=== PATIENT | male | born 1980 | race Asian ===

== ENCOUNTER 2018-12-01 10:54 | Emergency (ER) | payer MEDICAID, OTHER ==
[~2018-12-01] VITALS: Ht 162.6 cm; Wt 63.6 kg
[~2018-12-01 10:54] MED LIST: DIVA500T52 PO; OLAN10TA3 PO
[2018-12-01] MEDS ORDERED: DIPH50 PO (13:39)
[2018-12-01] MEDS ORDERED: RISP2 PO (13:39)
[2018-12-01] MEDS ORDERED: CLON.5 PO (13:39)
[2018-12-01] MEDS ORDERED: DOCU250C91 PO (13:39)
[2018-12-01] MEDS ORDERED: METF-960 PO (13:39)
[2018-12-01] MEDS ORDERED: MAG355OR36 PO (13:39)
[2018-12-01] MEDS ORDERED: PROV5 PO (13:39)
[2018-12-01] MEDS ORDERED: SITA100 PO (13:39)
[2018-12-01] MEDS ORDERED: ACET160S2 PO (13:39)
[2018-12-01] MEDS ORDERED: OLAN7.5T2 PO (13:39)
[2018-12-01] MEDS ORDERED: PIOG15TA6 PO (13:39)
[2018-12-01] MEDS ORDERED: BENZ0.5T44 PO (13:39)
[2018-12-01] MEDS ORDERED: MOM30 PO (13:39)
[2018-12-01 15:10] VITALS: BP 125/76
[2018-12-01 15:20] LABS: BASOPHILS % (AUTO) 0.6 % (0.0-2.0); EOSINOPHILS % (AUTO) 0.5 % (1.0-6.0); HEMATOCRIT 38.6 % (41-53); HEMOGLOBIN 12.8 g/dL (13.5-17.5); LYMPHOCYTES # (AUTO) 1.3 K/uL (1.0-4.8); LYMPHOCYTES % (AUTO) 19.9 % (22.0-44.0); MEAN CORPUSCULAR HGB CONC 33.2 G/dL (31.0-37.0); MEAN CORPUSCULAR VOLUME 91 fL (80-100); MONOCYTES # (AUTO) 0.7 K/uL (0.1-1.0); MONOCYTES % (AUTO) 10.7 % (2.0-9.0); NEUTROPHILS # (AUTO) 4.3 K/uL (1.8-7.7); NEUTROPHILS % (AUTO) 68.3 % (40.0-70.0); PLATELET COUNT (AUTO) 236 K/uL (150-450); RED BLOOD CELL COUNT(AUTO) 4.26 MIL/uL (4.50-5.90)
[2018-12-01 15:28] LABS: ANION GAP 9 mmol/L (8-16); CALCIUM, TOTAL 9.4 mg/dL (8.8-10.5); CARBON DIOXIDE 27 mmol/L (22-29); CHLORIDE 106 mmol/L (98-107); CREATININE 0.68 mg/dL (0.60-1.30); GLOMERULAR FILTR. RATE CALC > 60 mL/min (>60); GLUCOSE,RANDOM 102 mg/dL (70-110); POTASSIUM 3.4 mmol/L (3.5-5.1); SODIUM SERUM 142 mmol/L (136-145); UREA NITROGEN, BLOOD 12 mg/dL (7-18)
[2018-12-01 15:34] LABS: ALANINE AMINOTRANSFERASE 23 U/L (12-78); ALBUMIN 3.7 g/dL (3.4-5.0); ALKALINE PHOSPHATASE 63 U/L (46-116); ASPARTATE AMINOTRANSFERASE 20 U/L (15-37); BILIRUBIN,TOTAL 0.3 mg/dL (0.1-1.0); TOTAL PROTEIN, SERUM 7.2 g/dL (6.4-8.2)
== END 2018-12-01 18:50 | disposition home or self-care (01) ==
LOC: EMS 10:54
DX: F20.9 Schizophrenia, unspecified (principal); F31.9 Bipolar disorder, unspecified; Z91.14 Patient's other noncompliance with medication regimen; Z79.899 Other long term (current) drug therapy
CPT/HCPCS: 36415; 80053; 82962; 85025; 99284; G0480

== ENCOUNTER 2018-12-01 20:17 | Emergency (ER) | payer OTHER ==
[~2018-12-01] VITALS: Ht 167.6 cm; Wt 68.2 kg
[~2018-12-01 20:17] MED LIST changes: +ACET160S2 PO; +BENZ0.5T44 PO; +CLON.5 PO; +DIPH50 PO; +DOCU250C91 PO; +MAG355OR36 PO; +METF-960 PO; +MOM30 PO; +OLAN7.5T2 PO; +PIOG15TA6 PO; +PROV5 PO; +RISP2 PO; +SITA100 PO
[2018-12-01] MEDS ORDERED: LORazepam 2 MG/ML VIAL IM ONE ×2 (21:15→22:45)
[2018-12-01] MEDS ORDERED: HALOPERIDOL LACTATE 5 MG/ML VIAL IM ONE ×2 (21:15→22:45)
[2018-12-01] MEDS ORDERED: DiphenhydrAMINE HCL 50 MG/ML VIAL IM ONE (21:15)
[2018-12-02 00:43] VITALS: BP 100/70
== END 2018-12-02 00:51 | disposition home or self-care (01) ==
LOC: EMS 20:22
DX: F20.9 Schizophrenia, unspecified (principal); F31.9 Bipolar disorder, unspecified; Z79.899 Other long term (current) drug therapy
CPT/HCPCS: 96372; 99284; J1200; J1630; J2060

== ENCOUNTER 2018-12-04 17:13 | Inpatient (IN) | payer MEDICAID, OTHER ==
[~2018-12-04] VITALS: Ht 167.6 cm; Wt 65.4 kg
[~2018-12-04 17:13] MED LIST changes: -DIVA500T52 PO; -OLAN10TA3 PO
[2018-12-04 17:37] LABS: BASOPHILS % (AUTO) 0.5 % (0.0-2.0); EOSINOPHILS % (AUTO) 1.9 % (1.0-6.0); HEMATOCRIT 37.8 % (41-53); HEMOGLOBIN 12.6 g/dL (13.5-17.5); LYMPHOCYTES # (AUTO) 1.4 K/uL (1.0-4.8); LYMPHOCYTES % (AUTO) 24.6 % (22.0-44.0); MEAN CORPUSCULAR HEMOGLOBIN 29.6 pg (26.0-34.0); MEAN CORPUSCULAR HGB CONC 33.3 G/dL (31.0-37.0); MEAN CORPUSCULAR VOLUME 89 fL (80-100); MONOCYTES # (AUTO) 0.5 K/uL (0.1-1.0); MONOCYTES % (AUTO) 9.8 % (2.0-9.0); NEUTROPHILS # (AUTO) 3.5 K/uL (1.8-7.7); NEUTROPHILS % (AUTO) 63.2 % (40.0-70.0); PLATELET COUNT (AUTO) 236 K/uL (150-450); RED BLOOD CELL COUNT(AUTO) 4.25 MIL/uL (4.50-5.90); RED CELL DISTRIBUTION WIDTH 12.6 % (11.5-14.5)
[2018-12-04 17:45] LABS: ANION GAP 9 mmol/L (8-16); CARBON DIOXIDE 28 mmol/L (22-29); CHLORIDE 106 mmol/L (98-107); CREATININE 0.88 mg/dL (0.60-1.30); GLOMERULAR FILTR. RATE CALC > 60 mL/min (>60); GLUCOSE,RANDOM 111 mg/dL (70-110); POTASSIUM 3.7 mmol/L (3.5-5.1); SODIUM SERUM 143 mmol/L (136-145); UREA NITROGEN, BLOOD 9 mg/dL (7-18)
[2018-12-04 17:51] LABS: ALANINE AMINOTRANSFERASE 30 U/L (12-78); ALBUMIN 3.6 g/dL (3.4-5.0); ALKALINE PHOSPHATASE 69 U/L (46-116); ASPARTATE AMINOTRANSFERASE 54 U/L (15-37); BILIRUBIN,TOTAL 0.2 mg/dL (0.1-1.0); TOTAL PROTEIN, SERUM 7.2 g/dL (6.4-8.2)
[2018-12-04 18:42] LABS: APPEARANCE,URINE CLEAR (CLEAR); BILIRUBIN,URINE NEGATIVE (NEGATIVE); GLUCOSE, URINE (UA) 250 mg/dL (NEGATIVE); KETONES,URINE NEGATIVE (NEGATIVE); LEUKOCYTE ESTERASE ,URINE NEGATIVE (NEGATIVE); NITRATE,URINE NEGATIVE (NEGATIVE); OCCULT BLOOD,URINE NEGATIVE (NEGATIVE); PROTEIN,URINE NEGATIVE (NEGATIVE); UROBILINOGEN,URINE 0.2 mg/dL (<=1.0)
[2018-12-04 18:45] LABS: AMPHET/METH SCREEN,URINE NEGATIVE (NEGATIVE); BARBITURATE SCREEN, URINE NEGATIVE (NEGATIVE); BENZODIAZEPINES SCREEN,URINE NEGATIVE (NEGATIVE); CANNABINOID SCREEN,URINE NEGATIVE (NEGATIVE); COCAINE SCREEN,URINE NEGATIVE (NEGATIVE); METHADONE SCREEN, URINE NEGATIVE (NEGATIVE); OPIATE SCREEN,URINE NEGATIVE (NEGATIVE)
[2018-12-04 18:46] LABS: PHENCYCLIDINE SCREEN,URINE NEGATIVE (NEGATIVE)
[2018-12-04 18:54] LABS: RBC,URINE None Seen /HPF (0-2); WBC,URINE 0-2 /HPF (0-5)
[2018-12-04 18:55] LABS: BACTERIA,URINE None Seen /HPF (None Seen); SQUAMOUS EPITHELIAL CELL,UR Rare /LPF (None Seen)
[2018-12-04] MEDS ORDERED: LORazepam 2 MG TABLET PO PRN (20:45)
[2018-12-04] MEDS ORDERED: ZOLPIDEM TARTRATE 10 MG TABLET PO PRN (20:45)
[2018-12-04] MEDS ORDERED: INSULIN LISPRO 100 UNITS/ML SQ PRN (21:15)
[2018-12-04] MEDS ORDERED: GLUCAGON,HUMAN RECOMBINANT 1 MG VIAL IM PRN (21:15)
[2018-12-04] MEDS ORDERED: IBUPROFEN 600 MG TABLET PO PRN (21:15)
[2018-12-04] MEDS ORDERED: ACETAMINOPHEN 325 MG TABLET PO PRN (21:15)
[2018-12-04] MEDS: HALOPERIDOL 5 MG TABLET PO PRN (21:18)
[2018-12-05 00:24] VITALS: BP 115/78
[2018-12-05 06:29] LABS: GLUCOMETER DEV NAME(LOC) BV3N.; GLUCOSE,POINT OF CARE 125 MG/DL (70-110)
[2018-12-05] MEDS: MetFORMIN HCL 500 MG TABLET PO SCH ×2 (06:35→16:53)
[2018-12-05 07:57] LABS: HEMOGLOBIN A1C 5.8 % (4.5-6.2)
[2018-12-05 08:14] LABS: CHOL/HDL RATIO 2.8 (4.2-7.3); FREE T4 (FREE THYROXINE) 0.96 ng/dL (0.76-1.46); THYROID STIMULATING HORMONE 2.15 uIU/mL (0.36-3.74)
[2018-12-05] MEDS: MedroxyPROGESTERone ACET 5 MG TABLET PO SCH (08:30)
[2018-12-05] MEDS: DOCUSATE SODIUM 250 MG CAPSULE PO SCH (08:30)
[2018-12-05 09:26] VITALS: BP 111/72
[2018-12-05 16:00] VITALS: BP 118/77
[2018-12-05] MEDS: BENZTROPINE MESYLATE 0.5 MG TABLET PO SCH (16:53)
[2018-12-05] MEDS: HALOPERIDOL 5 MG TABLET PO PRN (16:53)
[2018-12-05 17:25] LABS: GLUCOMETER DEV NAME(LOC) BV3N.; GLUCOSE,POINT OF CARE 132 MG/DL (70-110)
[2018-12-05] MEDS ORDERED: OLANZapine 10 MG TABLET PO SCH (21:00)
[2018-12-06 03:19] VITALS: BP 121/82
[2018-12-06 06:24] LABS: GLUCOMETER DEV NAME(LOC) BV3N.; GLUCOSE,POINT OF CARE 161 MG/DL (70-110)
[2018-12-06] MEDS: MetFORMIN HCL 500 MG TABLET PO SCH (06:25)
[2018-12-06] MEDS: BENZTROPINE MESYLATE 0.5 MG TABLET PO SCH (08:52)
[2018-12-06] MEDS: MedroxyPROGESTERone ACET 5 MG TABLET PO SCH (08:52)
[2018-12-06] MEDS: DOCUSATE SODIUM 250 MG CAPSULE PO SCH (08:52)
[2018-12-06 08:53] VITALS: BP 120/73
[2018-12-06] MEDS ORDERED: OLAN10TA3 PO (10:55)
== END 2018-12-06 11:00 | disposition short-term general hospital (02) | DRG 750 ==
LOC: EMS 17:13 → B3A 21:11
PROVIDERS: ADMIT Psychiatry & Neurology Psychiatry; ATTEND Psychiatry & Neurology Psychiatry
DX: F20.0 Paranoid schizophrenia (principal); R45.851 Suicidal ideations; E11.9 Type 2 diabetes mellitus without complications; D64.9 Anemia, unspecified; F31.9 Bipolar disorder, unspecified; K59.00 Constipation, unspecified; Z83.3 Family history of diabetes mellitus; Z79.899 Other long term (current) drug therapy
CPT/HCPCS: 83036; 84439; 84443; 87081; G0480

== ENCOUNTER 2023-03-15 10:40 | Inpatient (IN) | payer MEDICAID ==
[~2023-03-15] VITALS: Ht 175.3 cm; Wt 85.8 kg
[~2023-03-15 10:40] MED LIST changes: -ACET160S2 PO; -BENZ0.5T44 PO; +BENZ0.5T6 PO; -CLON.5 PO; -DIPH50 PO; +DOCU-412 PO; -DOCU250C91 PO; -MAG355OR36 PO; +METF-1211 PO; -METF-960 PO; -MOM30 PO; +OLAN10TA74 PO; -OLAN7.5T2 PO; -PIOG15TA6 PO; -RISP2 PO; -SITA100 PO
[2023-03-15] MEDS ORDERED: PARO-38 PO (11:51)
[2023-03-15] MEDS ORDERED: MEDR150V13 IM (11:51)
[2023-03-15] MEDS ORDERED: NA P133E4 PR (11:51)
[2023-03-15] MEDS ORDERED: PALI234D IM (11:51)
[2023-03-15] MEDS ORDERED: HALO5TAB23 PO (11:51)
[2023-03-15] MEDS ORDERED: DIPH50CA38 PO (11:51)
[2023-03-15] MEDS ORDERED: MAGN-169 PO (11:51)
[2023-03-15] MEDS ORDERED: DIPH-1237 PO (11:51)
[2023-03-15] MEDS ORDERED: LITH300C3 PO (11:51)
[2023-03-15] MEDS ORDERED: ACET-784 PO (11:51)
[2023-03-15] MEDS ORDERED: MULT-264 PO (11:51)
[2023-03-15] MEDS ORDERED: GLYC1TAB27 PO (11:51)
[2023-03-15] MEDS ORDERED: QUET100T34 PO (11:51)
[2023-03-15] MEDS ORDERED: BISA10SU11 PR (11:51)
[2023-03-15] MEDS ORDERED: CLOZ100T61 PO (11:51)
[2023-03-15] MEDS ORDERED: ATOR20TA PO (11:51)
[2023-03-15] MEDS ORDERED: PIOG30TA10 PO (11:51)
[2023-03-15] MEDS ORDERED: MIRT-149 PO (11:51)
[2023-03-15] MEDS ORDERED: ACET-2247 PO (11:51)
[2023-03-15] MEDS: LORazepam 1 MG TABLET PO ONE (11:59)
[2023-03-15 12:00] LABS: ANION GAP 13 mmol/L (8-16); CALCIUM, TOTAL 9.2 mg/dL (8.8-10.5); CARBON DIOXIDE 22 mmol/L (22-29); CHLORIDE 107 mmol/L (98-107); CREATININE 0.69 mg/dL (0.60-1.30); GLOMERULAR FILTR. RATE CALC > 60 mL/min (>60); GLUCOSE,RANDOM 143 mg/dL (70-110); POTASSIUM 3.7 mmol/L (3.5-5.1); SODIUM SERUM 142 mmol/L (136-145); UREA NITROGEN, BLOOD 16 mg/dL (7-18)
[2023-03-15 12:01] LABS: BASOPHILS % (AUTO) 0.4 % (0.0-2.0); EOSINOPHILS % (AUTO) 0.6 % (1.0-6.0); HEMATOCRIT 41.7 % (41-53); HEMOGLOBIN 13.8 g/dL (13.5-17.5); LYMPHOCYTES # (AUTO) 0.9 K/uL (1.0-4.8); LYMPHOCYTES % (AUTO) 15.5 % (22.0-44.0); MEAN CORPUSCULAR HEMOGLOBIN 32.2 pg (26.0-34.0); MEAN CORPUSCULAR HGB CONC 33.2 G/dL (31.0-37.0); MEAN CORPUSCULAR VOLUME 97 fL (80-100); MONOCYTES # (AUTO) 0.5 K/uL (0.1-1.0); MONOCYTES % (AUTO) 8.2 % (2.0-9.0); NEUTROPHILS # (AUTO) 4.3 K/uL (1.8-7.7); NEUTROPHILS % (AUTO) 75.3 % (40.0-70.0); PLATELET COUNT (AUTO) 171 K/uL (150-450); RED BLOOD CELL COUNT(AUTO) 4.29 MIL/uL (4.50-5.90); RED CELL DISTRIBUTION WIDTH 13.2 % (11.5-14.5); WHITE BLOOD COUNT (AUTO) 5.7 K/uL (4.5-11.0)
[2023-03-15 12:03] LABS: ALCOHOL, BLOOD (SERUM) < 3 mg/dL (0-10)
[2023-03-15 12:07] LABS: ALANINE AMINOTRANSFERASE 22 U/L (12-78); ALBUMIN 4.1 g/dL (3.4-5.0); ALKALINE PHOSPHATASE 74 U/L (46-116); ASPARTATE AMINOTRANSFERASE 13 U/L (15-37); BILIRUBIN,TOTAL 0.4 mg/dL (0.1-1.0); TOTAL PROTEIN, SERUM 7.3 g/dL (6.4-8.2)
[2023-03-15] MEDS: HALOPERIDOL LACTATE 5 MG/ML VIAL IM ONE (12:13)
[2023-03-15] MEDS: LORazepam 2 MG/ML VIAL IM ONE (12:14)
[2023-03-15] MEDS: DiphenhydrAMINE HCL 50 MG/ML VIAL IM ONE (12:14)
[2023-03-15] MEDS ORDERED: PROMETHAZINE HCL 25 MG TABLET PO PRN (13:15)
[2023-03-15] MEDS ORDERED: ACETAMINOPHEN 325 MG TABLET PO PRN (13:15)
[2023-03-15] MEDS ORDERED: GuaiFENesin/D-METHORPHAN [SUGAR-FREE] 200-20MG/10 ML SYRUP UDCUP PO PRN (13:15)
[2023-03-15] MEDS ORDERED: LOPERAMIDE HCL 2 MG CAPSULE PO PRN (13:15)
[2023-03-15] MEDS ORDERED: MIRT45TA83 PO (13:29)
[2023-03-15] MEDS ORDERED: DIPH-1243 PO (13:29)
[2023-03-15] MEDS ORDERED: GLIP10TA9 PO (13:29)
[2023-03-15] MEDS ORDERED: INSU3INS3 SQ (13:29)
[2023-03-15] MEDS ORDERED: OXYB5TAB20 PO (13:29)
[2023-03-15 16:33] LABS: APPEARANCE,URINE CLEAR (CLEAR); BILIRUBIN,URINE NEGATIVE (NEGATIVE); COLOR,URINE YELLOW (YELLOW); GLUCOSE, URINE (UA) TRACE mg/dL (NEGATIVE); KETONES,URINE 40-60 mg/dL (NEGATIVE); LEUKOCYTE ESTERASE ,URINE NEGATIVE (NEGATIVE); NITRATE,URINE NEGATIVE (NEGATIVE); OCCULT BLOOD,URINE NEGATIVE (NEGATIVE); PROTEIN,URINE TRACE mg/dL (NEGATIVE); SPECIFIC GRAVITIY, URINE 1.025 (1.003-1.030); UROBILINOGEN,URINE <=1.0 mg/dL (<=1.0)
[2023-03-15 16:39] LABS: ALCOHOL, URINE DRUG SCREEN NEGATIVE (NEGATIVE); AMPHET/METH SCREEN,URINE NEGATIVE (NEGATIVE); BARBITURATE SCREEN, URINE NEGATIVE (NEGATIVE); BENZODIAZEPINES SCREEN,URINE NEGATIVE (NEGATIVE); CANNABINOID SCREEN,URINE NEGATIVE (NEGATIVE); COCAINE SCREEN,URINE NEGATIVE (NEGATIVE); METHADONE SCREEN, URINE NEGATIVE (NEGATIVE); OPIATE SCREEN,URINE NEGATIVE (NEGATIVE); PHENCYCLIDINE SCREEN,URINE NEGATIVE (NEGATIVE)
[2023-03-15] MEDS: LORazepam 2 MG TABLET PO PRN (18:55)
[2023-03-15] MEDS: LITHIUM CARBONATE 300 MG CAPSULE PO SCH (18:55)
[2023-03-15 19:16] LABS: GLUCOMETER DEV NAME(LOC) ER.6; GLUCOSE,POINT OF CARE 127 MG/DL (70-110)
[2023-03-15] MEDS: OLANZapine 5 MG RAPDIS TABLET PO SCH (21:00)
[2023-03-15 21:28] LABS: COVID AG,FIA SOURCE NASAL SWAB
[2023-03-15 21:48] LABS: SARS-COV2 (COVID) ANTIGEN,FIA Negative (Negative)
[2023-03-15] MEDS: DIVALPROEX SODIUM 500 MG ER TABLET PO SCH (22:32)
[2023-03-15] MEDS: MELATONIN 5 MG TABLET PO SCH (22:33)
[2023-03-15] MEDS: THIAMINE 100 MG TABLET PO SCH (22:33)
[2023-03-16 00:07] LABS: GLUCOMETER DEV NAME(LOC) ER.6; GLUCOSE,POINT OF CARE 133 MG/DL (70-110)
[2023-03-16] MEDS: OLANZapine 5 MG RAPDIS TABLET PO PRN (06:09)
[2023-03-16 09:26] LABS: HEMOGLOBIN A1C 6.7 % (3.8-5.6)
[2023-03-16 09:39] LABS: CHOL/HDL RATIO 2.7 (4.2-7.3); FREE T4 (FREE THYROXINE) 1.4 ng/dL (0.76-1.46); THYROID STIMULATING HORMONE 0.58 uIU/mL (0.36-3.74)
[2023-03-16] MEDS: MULTIVITAMINS WITH MINERALS, THERAPEUTIC TABLET PO SCH (11:32)
[2023-03-16] MEDS: FOLIC ACID 1 MG TABLET PO SCH (11:33)
[2023-03-16] MEDS: ACETAMINOPHEN 500 MG TABLET PO ONE (11:33)
[2023-03-16 11:39] LABS: INFLUENZA TYPE A NEGATIVE FOR TYPE A (NEGATIVE); INFLUENZA TYPE B NEGATIVE FOR TYPE B (NEGATIVE)
[2023-03-16] MEDS: OMEGA-3/DHA/EPA/FISH OIL 1,000 MG CAPSULE PO SCH (12:26)
[2023-03-16] MEDS: ChlorproMAZINE HCL 50 MG/2 ML AMP IM ONE (14:43)
[2023-03-17] MEDS ORDERED: BISACODYL 10 MG RECTAL RECTAL SUPPOSITORY PR PRN (10:00)
[2023-03-17] MEDS ORDERED: GLUCAGON,HUMAN RECOMBINANT 1 MG VIAL IM PRN (10:00)
[2023-03-17] MEDS ORDERED: ACETAMINOPHEN 325 MG TABLET PO PRN (10:00)
[2023-03-17] MEDS: OXYBUTYNIN CHLORIDE 5 MG TABLET PO SCH (18:07)
[2023-03-17] MEDS: MetFORMIN HCL 500 MG TABLET PO SCH (18:07)
[2023-03-17 18:26] LABS: GLUCOMETER DEV NAME(LOC) ER.6; GLUCOSE,POINT OF CARE 198 MG/DL (70-110)
[2023-03-17] MEDS: ATORVASTATIN CALCIUM 20 MG TABLET PO SCH (20:55)
[2023-03-17 20:56] LABS: GLUCOMETER DEV NAME(LOC) BV2S.; GLUCOSE,POINT OF CARE 230 MG/DL (70-110)
[2023-03-17] MEDS: INSULIN LISPRO 100 UNITS/ML SQ PRN (20:59)
[2023-03-17 23:17] VITALS: BP 115/65; PULSE 102; RESP 18; TEMP 97.8; O2SAT 98
[2023-03-18 07:01] LABS: GLUCOMETER DEV NAME(LOC) BV2S.; GLUCOSE,POINT OF CARE 172 MG/DL (70-110)
[2023-03-18 08:18] LABS: BASOPHILS % (AUTO) 0.2 % (0.0-2.0); EOSINOPHILS % (AUTO) 1.6 % (1.0-6.0); HEMATOCRIT 43.6 % (41-53); HEMOGLOBIN 14.9 g/dL (13.5-17.5); LYMPHOCYTES # (AUTO) 1.2 K/uL (1.0-4.8); LYMPHOCYTES % (AUTO) 13.5 % (22.0-44.0); MEAN CORPUSCULAR HEMOGLOBIN 33.1 pg (26.0-34.0); MEAN CORPUSCULAR HGB CONC 34.1 G/dL (31.0-37.0); MEAN CORPUSCULAR VOLUME 97 fL (80-100); MONOCYTES % (AUTO) 11.4 % (2.0-9.0); NEUTROPHILS # (AUTO) 6.4 K/uL (1.8-7.7); NEUTROPHILS % (AUTO) 73.3 % (40.0-70.0); PLATELET COUNT (AUTO) 175 K/uL (150-450); WHITE BLOOD COUNT (AUTO) 8.7 K/uL (4.5-11.0)
[2023-03-18 08:29] VITALS: BP 131/74; PULSE 128; RESP 17; TEMP 97.9; O2SAT 98
[2023-03-18] MEDS: CloZAPine 25 MG TABLET PO SCH (08:59)
[2023-03-18] MEDS: MAG HYDROX/ALUMINUM HYD/SIMETH ES 30 ML SUSPENSION UDCUP PO PRN (09:58)
[2023-03-18] MEDS: HydrOXYzine PAMOATE 50 MG CAPSULE PO PRN (10:36)
[2023-03-18] MEDS: GABAPENTIN 300 MG CAPSULE PO PRN (10:37)
[2023-03-18 11:26] LABS: GLUCOMETER DEV NAME(LOC) BV2S.; GLUCOSE,POINT OF CARE 239 MG/DL (70-110)
[2023-03-18 16:56] LABS: GLUCOMETER DEV NAME(LOC) BV2S.; GLUCOSE,POINT OF CARE 314 MG/DL (70-110)
[2023-03-18] MEDS: OLANZapine 10 MG RAPDIS TABLET PO SCH (20:34)
[2023-03-18 22:11] LABS: GLUCOMETER DEV NAME(LOC) BV2S.; GLUCOSE,POINT OF CARE 247 MG/DL (70-110)
[2023-03-18 22:51] VITALS: BP 116/73; RESP 17; TEMP 98.9; O2SAT 98
[2023-03-19 06:56] LABS: GLUCOMETER DEV NAME(LOC) BV3N.; GLUCOSE,POINT OF CARE 243 MG/DL (70-110)
[2023-03-19 08:58] VITALS: BP 128/67; PULSE 102; RESP 18; TEMP 98; O2SAT 100
[2023-03-19] MEDS: CloZAPine 25 MG TABLET PO SCH ×2 (09:12→21:00)
[2023-03-19] MEDS: LORazepam 0.5 MG TABLET PO PRN (09:12)
[2023-03-19 11:36] LABS: GLUCOMETER DEV NAME(LOC) BV3N.; GLUCOSE,POINT OF CARE 218 MG/DL (70-110)
[2023-03-19 18:27] LABS: GLUCOMETER DEV NAME(LOC) BV3N.; GLUCOSE,POINT OF CARE 343 MG/DL (70-110)
[2023-03-19 21:08] VITALS: BP 114/70; PULSE 72; RESP 18; TEMP 98; O2SAT 97
[2023-03-20] MEDS: ZOLPIDEM TARTRATE 10 MG TABLET PO PRN (00:30)
[2023-03-20 06:46] LABS: GLUCOMETER DEV NAME(LOC) BV3N.; GLUCOSE,POINT OF CARE 180 MG/DL (70-110)
[2023-03-20] MEDS: CloZAPine 25 MG TABLET PO SCH ×2 (08:12→20:29)
[2023-03-20 09:14] VITALS: BP 132/71; PULSE 99; RESP 19; TEMP 98.2; O2SAT 99
[2023-03-20 12:01] LABS: GLUCOMETER DEV NAME(LOC) BV3N.; GLUCOSE,POINT OF CARE 196 MG/DL (70-110)
[2023-03-20] MEDS: MUPIROCIN CALCIUM 2% 22 GM OINTMENT NASAL SCH (16:31)
[2023-03-20 16:57] LABS: GLUCOMETER DEV NAME(LOC) BV3N.; GLUCOSE,POINT OF CARE 293 MG/DL (70-110)
[2023-03-20 20:31] LABS: GLUCOMETER DEV NAME(LOC) BV3N.; GLUCOSE,POINT OF CARE 131 MG/DL (70-110)
[2023-03-20 20:48] VITALS: BP 126/82; PULSE 100; RESP 18; TEMP 97.7; O2SAT 96
[2023-03-21 06:46] LABS: GLUCOMETER DEV NAME(LOC) BV3N.; GLUCOSE,POINT OF CARE 192 MG/DL (70-110)
[2023-03-21 08:17] VITALS: BP 140/100; PULSE 90; RESP 18; TEMP 98; O2SAT 95
[2023-03-21] MEDS: CloZAPine 25 MG TABLET PO SCH (10:25)
[2023-03-21 11:36] LABS: GLUCOMETER DEV NAME(LOC) BV3N.; GLUCOSE,POINT OF CARE 255 MG/DL (70-110)
[2023-03-21 19:51] LABS: GLUCOMETER DEV NAME(LOC) BV3N.; GLUCOSE,POINT OF CARE 243 MG/DL (70-110)
[2023-03-21 20:41] LABS: GLUCOMETER DEV NAME(LOC) BV3N.; GLUCOSE,POINT OF CARE 260 MG/DL (70-110)
[2023-03-21 20:42] VITALS: BP 132/88; PULSE 100; RESP 18; TEMP 97.8; O2SAT 98
[2023-03-22 06:21] LABS: GLUCOMETER DEV NAME(LOC) BV3N.; GLUCOSE,POINT OF CARE 202 MG/DL (70-110)
[2023-03-22 08:17] VITALS: BP 114/70; PULSE 100; RESP 17; TEMP 97.8; O2SAT 99
[2023-03-22 11:56] LABS: GLUCOMETER DEV NAME(LOC) BV3N.; GLUCOSE,POINT OF CARE 268 MG/DL (70-110)
[2023-03-22 17:16] LABS: GLUCOMETER DEV NAME(LOC) BV3N.; GLUCOSE,POINT OF CARE 308 MG/DL (70-110)
[2023-03-22 20:03] VITALS: BP 138/83; PULSE 100; RESP 18; TEMP 98.2; O2SAT 97
[2023-03-22] MEDS: INSULIN GLARGINE,HUM.REC.ANLOG 100 UNITS/ML SQ SCH (20:22)
[2023-03-22 20:35] LABS: GLUCOMETER DEV NAME(LOC) BV3N.; GLUCOSE,POINT OF CARE 202 MG/DL (70-110)
[2023-03-23 00:40] VITALS: BP 117/84; PULSE 100; RESP 18; TEMP 97.5; O2SAT 97
[2023-03-23] MEDS: CloZAPine 25 MG TABLET PO SCH (08:04)
[2023-03-23 08:25] VITALS: BP 121/78; PULSE 98; RESP 17; TEMP 96.9; O2SAT 99
[2023-03-23 12:01] LABS: GLUCOMETER DEV NAME(LOC) BV3N.; GLUCOSE,POINT OF CARE 338 MG/DL (70-110)
[2023-03-23 16:55] LABS: GLUCOMETER DEV NAME(LOC) BV3N.; GLUCOSE,POINT OF CARE 215 MG/DL (70-110)
[2023-03-23 20:15] VITALS: BP 124/64; PULSE 91; RESP 18; TEMP 97.7; O2SAT 97
[2023-03-23] MEDS: OLANZapine 5 MG RAPDIS TABLET PO SCH (20:46)
[2023-03-23] MEDS: CloZAPine 100 MG TABLET PO SCH (20:47)
[2023-03-23 20:56] LABS: GLUCOMETER DEV NAME(LOC) BV3N.; GLUCOSE,POINT OF CARE 264 MG/DL (70-110)
[2023-03-24 05:21] LABS: GLUCOMETER DEV NAME(LOC) BV3N.; GLUCOSE,POINT OF CARE 205 MG/DL (70-110)
[2023-03-24 08:20] VITALS: BP 104/60; PULSE 102; RESP 17; TEMP 97.1; O2SAT 99
[2023-03-24] MEDS: CloZAPine 25 MG TABLET PO SCH (08:31)
[2023-03-24 11:36] LABS: GLUCOMETER DEV NAME(LOC) BV3N.; GLUCOSE,POINT OF CARE 248 MG/DL (70-110)
[2023-03-24 17:11] LABS: GLUCOMETER DEV NAME(LOC) BV3N.; GLUCOSE,POINT OF CARE 303 MG/DL (70-110)
[2023-03-24 20:05] VITALS: BP 140/84; PULSE 101; RESP 18; TEMP 97.6; O2SAT 96
[2023-03-24] MEDS: CloZAPine 100 MG TABLET PO SCH (20:48)
[2023-03-24] MEDS: OLANZapine 5 MG RAPDIS TABLET PO SCH (20:53)
[2023-03-24 21:02] LABS: GLUCOMETER DEV NAME(LOC) BV3N.; GLUCOSE,POINT OF CARE 143 MG/DL (70-110)
[2023-03-25 06:16] LABS: GLUCOMETER DEV NAME(LOC) BV3N.; GLUCOSE,POINT OF CARE 251 MG/DL (70-110)
[2023-03-25] MEDS: CloZAPine 25 MG TABLET PO SCH (08:08)
[2023-03-25 08:19] VITALS: BP 125/77; PULSE 101; RESP 17; TEMP 97.7; O2SAT 97
[2023-03-25 08:29] LABS: BASOPHILS % (AUTO) 0.7 % (0.0-2.0); HEMATOCRIT 41.4 % (41-53); HEMOGLOBIN 13.9 g/dL (13.5-17.5); LYMPHOCYTES # (AUTO) 1.6 K/uL (1.0-4.8); MEAN CORPUSCULAR HEMOGLOBIN 32.9 pg (26.0-34.0); MEAN CORPUSCULAR HGB CONC 33.5 G/dL (31.0-37.0); MEAN CORPUSCULAR VOLUME 98 fL (80-100); MONOCYTES # (AUTO) 0.8 K/uL (0.1-1.0); MONOCYTES % (AUTO) 10.4 % (2.0-9.0); NEUTROPHILS # (AUTO) 4.8 K/uL (1.8-7.7); NEUTROPHILS % (AUTO) 64.9 % (40.0-70.0); PLATELET COUNT (AUTO) 225 K/uL (150-450); RED BLOOD CELL COUNT(AUTO) 4.21 MIL/uL (4.50-5.90); RED CELL DISTRIBUTION WIDTH 12.8 % (11.5-14.5); WHITE BLOOD COUNT (AUTO) 7.4 K/uL (4.5-11.0)
[2023-03-25 11:26] LABS: GLUCOMETER DEV NAME(LOC) BV3N.; GLUCOSE,POINT OF CARE 191 MG/DL (70-110)
[2023-03-25] MEDS: LITHIUM CARBONATE 300 MG CAPSULE PO SCH (17:02)
[2023-03-25 17:21] LABS: GLUCOMETER DEV NAME(LOC) BV3N.; GLUCOSE,POINT OF CARE 303 MG/DL (70-110)
[2023-03-25 20:07] VITALS: BP 111/75; PULSE 100; RESP 18; TEMP 97.8; O2SAT 98
[2023-03-25] MEDS: CloZAPine 100 MG TABLET PO SCH (20:22)
[2023-03-25 21:06] LABS: GLUCOMETER DEV NAME(LOC) BV3N.; GLUCOSE,POINT OF CARE 238 MG/DL (70-110)
[2023-03-26 05:41] LABS: GLUCOMETER DEV NAME(LOC) BV3N.; GLUCOSE,POINT OF CARE 208 MG/DL (70-110)
[2023-03-26] MEDS: CloZAPine 100 MG TABLET PO SCH (08:11)
[2023-03-26 08:31] VITALS: BP 108/71; PULSE 100; RESP 17; TEMP 97.3; O2SAT 98
[2023-03-26 11:41] LABS: GLUCOMETER DEV NAME(LOC) BV3N.; GLUCOSE,POINT OF CARE 388 MG/DL (70-110)
[2023-03-26 16:41] LABS: GLUCOMETER DEV NAME(LOC) BV3N.; GLUCOSE,POINT OF CARE 259 MG/DL (70-110)
[2023-03-26 20:01] VITALS: BP 120/74; PULSE 96; RESP 20; TEMP 97.8
[2023-03-26 20:21] LABS: GLUCOMETER DEV NAME(LOC) BV3N.; GLUCOSE,POINT OF CARE 277 MG/DL (70-110)
[2023-03-27 06:21] LABS: GLUCOMETER DEV NAME(LOC) BV3N.; GLUCOSE,POINT OF CARE 156 MG/DL (70-110)
[2023-03-27 10:17] VITALS: BP 113/70; PULSE 100; RESP 18; TEMP 97; O2SAT 98
[2023-03-27 16:41] LABS: GLUCOMETER DEV NAME(LOC) BV3N.; GLUCOSE,POINT OF CARE 332 MG/DL (70-110)
[2023-03-27 20:04] VITALS: BP 117/76; PULSE 98; RESP 18; TEMP 97.6; O2SAT 98
[2023-03-27 21:26] LABS: GLUCOMETER DEV NAME(LOC) BV3N.; GLUCOSE,POINT OF CARE 208 MG/DL (70-110)
[2023-03-28 06:36] LABS: GLUCOMETER DEV NAME(LOC) BV3N.; GLUCOSE,POINT OF CARE 120 MG/DL (70-110)
[2023-03-28] MEDS: CloZAPine 25 MG TABLET PO SCH (08:11)
[2023-03-28 09:02] VITALS: BP 109/69; PULSE 83; RESP 17; TEMP 97.1; O2SAT 98
[2023-03-28 11:30] LABS: GLUCOMETER DEV NAME(LOC) BV3N.; GLUCOSE,POINT OF CARE 278 MG/DL (70-110)
[2023-03-28] MEDS: PNEUMOCOCCAL VACCINE POLYVALENT 0.5 ML SYRINGE [PPSV23] IM. ONE (16:25)
[2023-03-28 16:46] LABS: GLUCOMETER DEV NAME(LOC) BV3N.; GLUCOSE,POINT OF CARE 326 MG/DL (70-110)
[2023-03-28 20:04] VITALS: BP 114/64; PULSE 70; RESP 17; TEMP 97.6; O2SAT 97
[2023-03-28] MEDS: CloZAPine 100 MG TABLET PO SCH (20:05)
[2023-03-28 20:56] LABS: GLUCOMETER DEV NAME(LOC) BV3N.; GLUCOSE,POINT OF CARE 210 MG/DL (70-110)
[2023-03-29 06:56] LABS: GLUCOMETER DEV NAME(LOC) BV3N.; GLUCOSE,POINT OF CARE 155 MG/DL (70-110)
[2023-03-29] MEDS: CloZAPine 25 MG TABLET PO SCH (08:03)
[2023-03-29 08:32] VITALS: BP 102/66; PULSE 78; RESP 17; TEMP 98; O2SAT 96
[2023-03-29 11:56] LABS: GLUCOMETER DEV NAME(LOC) BV3N.; GLUCOSE,POINT OF CARE 314 MG/DL (70-110)
[2023-03-29 19:46] LABS: GLUCOMETER DEV NAME(LOC) BV3N.; GLUCOSE,POINT OF CARE 447 MG/DL (70-110)
[2023-03-29] MEDS: CloZAPine 100 MG TABLET PO SCH (20:04)
[2023-03-29 20:09] VITALS: BP 106/62; PULSE 70; RESP 17; TEMP 97.8; O2SAT 96
[2023-03-29] MEDS: INSULIN LISPRO 100 UNITS/ML SQ ONE (21:30)
[2023-03-30] MEDS ORDERED: GLUCAGON,HUMAN RECOMBINANT 1 MG VIAL IM PRN (00:05)
[2023-03-30 05:56] LABS: GLUCOMETER DEV NAME(LOC) BV3N.; GLUCOSE,POINT OF CARE 282 MG/DL (70-110)
[2023-03-30] MEDS: INSULIN LISPRO 100 UNITS/ML SQ PRN (06:07)
[2023-03-30] MEDS: CloZAPine 100 MG TABLET PO SCH ×2 (08:02→20:28)
[2023-03-30 12:01] LABS: GLUCOMETER DEV NAME(LOC) BV3N.; GLUCOSE,POINT OF CARE 326 MG/DL (70-110)
[2023-03-30 14:27] VITALS: BP 118/74; PULSE 100; RESP 17; TEMP 97.9; O2SAT 99
[2023-03-30 17:06] LABS: GLUCOMETER DEV NAME(LOC) BV3N.; GLUCOSE,POINT OF CARE 337 MG/DL (70-110)
[2023-03-30] MEDS: MUPIROCIN CALCIUM 2% 22 GM OINTMENT TP SCH (17:22)
[2023-03-30] MEDS: OLANZapine 5 MG RAPDIS TABLET PO SCH (20:22)
[2023-03-30 20:39] VITALS: RESP 18; TEMP 97.8
[2023-03-30 21:16] LABS: GLUCOMETER DEV NAME(LOC) BV3N.; GLUCOSE,POINT OF CARE 170 MG/DL (70-110)
[2023-03-31 06:41] LABS: GLUCOMETER DEV NAME(LOC) BV3N.; GLUCOSE,POINT OF CARE 234 MG/DL (70-110)
[2023-03-31 11:15] VITALS: BP 107/64; PULSE 78; RESP 17; TEMP 97.5; O2SAT 95
[2023-03-31 11:41] LABS: GLUCOMETER DEV NAME(LOC) BV3N.; GLUCOSE,POINT OF CARE 279 MG/DL (70-110)
[2023-03-31 16:56] LABS: GLUCOMETER DEV NAME(LOC) BV3N.; GLUCOSE,POINT OF CARE 309 MG/DL (70-110)
[2023-03-31] MEDS: INSULIN GLARGINE,HUM.REC.ANLOG 100 UNITS/ML SQ SCH (20:52)
[2023-03-31 21:05] LABS: GLUCOMETER DEV NAME(LOC) BV3N.; GLUCOSE,POINT OF CARE 343 MG/DL (70-110)
[2023-04-01 01:43] VITALS: RESP 18; TEMP 97.9
[2023-04-01 05:31] LABS: GLUCOMETER DEV NAME(LOC) BV3N.; GLUCOSE,POINT OF CARE 345 MG/DL (70-110)
[2023-04-01 06:43] LABS: BASOPHILS % (AUTO) 0.5 % (0.0-2.0); EOSINOPHILS % (AUTO) 1.9 % (1.0-6.0); HEMATOCRIT 41.4 % (41-53); HEMOGLOBIN 13.8 g/dL (13.5-17.5); LYMPHOCYTES # (AUTO) 1.9 K/uL (1.0-4.8); LYMPHOCYTES % (AUTO) 25.3 % (22.0-44.0); MEAN CORPUSCULAR HEMOGLOBIN 32.6 pg (26.0-34.0); MEAN CORPUSCULAR HGB CONC 33.3 G/dL (31.0-37.0); MEAN CORPUSCULAR VOLUME 98 fL (80-100); MONOCYTES # (AUTO) 0.7 K/uL (0.1-1.0); MONOCYTES % (AUTO) 9.5 % (2.0-9.0); NEUTROPHILS # (AUTO) 4.7 K/uL (1.8-7.7); NEUTROPHILS % (AUTO) 62.8 % (40.0-70.0); PLATELET COUNT (AUTO) 234 K/uL (150-450); RED BLOOD CELL COUNT(AUTO) 4.22 MIL/uL (4.50-5.90); RED CELL DISTRIBUTION WIDTH 12.7 % (11.5-14.5); WHITE BLOOD COUNT (AUTO) 7.4 K/uL (4.5-11.0)
[2023-04-01 08:28] VITALS: BP 112/71; PULSE 91; RESP 17; TEMP 97.4; O2SAT 99
[2023-04-01 11:46] LABS: GLUCOMETER DEV NAME(LOC) BV3N.; GLUCOSE,POINT OF CARE 217 MG/DL (70-110)
[2023-04-01] MEDS: LITHIUM CARBONATE 300 MG CAPSULE PO SCH (16:20)
[2023-04-01 16:31] LABS: GLUCOMETER DEV NAME(LOC) BV3N.; GLUCOSE,POINT OF CARE 322 MG/DL (70-110)
[2023-04-01 20:03] VITALS: BP 117/63; PULSE 92; RESP 18; TEMP 97.6; O2SAT 97
[2023-04-01 20:21] LABS: GLUCOMETER DEV NAME(LOC) BV3N.; GLUCOSE,POINT OF CARE 227 MG/DL (70-110)
[2023-04-01] MEDS: LITHIUM CARBONATE 600 MG CAPSULE PO SCH (20:54)
[2023-04-02 06:31] LABS: GLUCOMETER DEV NAME(LOC) BV3N.; GLUCOSE,POINT OF CARE 158 MG/DL (70-110)
[2023-04-02 09:13] VITALS: BP 113/49; PULSE 96; RESP 17; TEMP 97.5; O2SAT 100
[2023-04-02 11:46] LABS: GLUCOMETER DEV NAME(LOC) BV3N.; GLUCOSE,POINT OF CARE 436 MG/DL (70-110)
[2023-04-02 17:06] LABS: GLUCOMETER DEV NAME(LOC) BV3N.; GLUCOSE,POINT OF CARE 231 MG/DL (70-110)
[2023-04-02 20:05] VITALS: BP 121/76; PULSE 86; RESP 18; TEMP 97.6; O2SAT 97
[2023-04-02] MEDS: INSULIN GLARGINE,HUM.REC.ANLOG 100 UNITS/ML SQ SCH (20:26)
[2023-04-02 20:41] LABS: GLUCOMETER DEV NAME(LOC) BV3N.; GLUCOSE,POINT OF CARE 182 MG/DL (70-110)
[2023-04-03 06:31] LABS: GLUCOMETER DEV NAME(LOC) BV3N.; GLUCOSE,POINT OF CARE 188 MG/DL (70-110)
[2023-04-03 08:30] VITALS: BP 133/73; PULSE 87; RESP 17; TEMP 97.2; O2SAT 100
[2023-04-03 11:46] LABS: GLUCOMETER DEV NAME(LOC) BV3N.; GLUCOSE,POINT OF CARE 240 MG/DL (70-110)
[2023-04-03 12:04] VITALS: BP 118/70; PULSE 87; RESP 17; TEMP 98; O2SAT 97
[2023-04-03 16:36] LABS: GLUCOMETER DEV NAME(LOC) BV3N.; GLUCOSE,POINT OF CARE 149 MG/DL (70-110)
[2023-04-03 20:32] LABS: GLUCOMETER DEV NAME(LOC) BV3N.; GLUCOSE,POINT OF CARE 305 MG/DL (70-110)
[2023-04-03 21:31] VITALS: BP 121/68; PULSE 84; RESP 17; TEMP 97.8; O2SAT 97
[2023-04-04 06:17] LABS: GLUCOMETER DEV NAME(LOC) BV3N.; GLUCOSE,POINT OF CARE 198 MG/DL (70-110)
[2023-04-04 08:05] VITALS: BP 113/68; PULSE 94; RESP 17; TEMP 98; O2SAT 97
[2023-04-04 11:37] LABS: GLUCOMETER DEV NAME(LOC) BV3N.; GLUCOSE,POINT OF CARE 321 MG/DL (70-110)
[2023-04-04 16:42] LABS: GLUCOMETER DEV NAME(LOC) BV3N.; GLUCOSE,POINT OF CARE 355 MG/DL (70-110)
[2023-04-04 20:23] LABS: GLUCOMETER DEV NAME(LOC) BV3N.; GLUCOSE,POINT OF CARE 241 MG/DL (70-110)
[2023-04-04 20:52] VITALS: BP 115/77; PULSE 87; RESP 18; TEMP 98; O2SAT 97
[2023-04-05 06:28] LABS: GLUCOMETER DEV NAME(LOC) BV3N.; GLUCOSE,POINT OF CARE 159 MG/DL (70-110)
[2023-04-05 08:08] VITALS: BP 100/64; PULSE 77; RESP 17; TEMP 98; O2SAT 96
[2023-04-05 11:33] LABS: GLUCOMETER DEV NAME(LOC) BV3N.; GLUCOSE,POINT OF CARE 361 MG/DL (70-110)
[2023-04-05 16:51] LABS: GLUCOMETER DEV NAME(LOC) BV3N.; GLUCOSE,POINT OF CARE 225 MG/DL (70-110)
[2023-04-05 17:07] LABS: CLOZAPINE & NORCLOZAPINE 132 ng/mL; NORCLOZAPINE 28 ng/mL (Not Estab.)
[2023-04-05 20:04] VITALS: BP 116/75; PULSE 113; RESP 18; TEMP 97.7; O2SAT 96
[2023-04-05] MEDS: CloZAPine 100 MG TABLET PO SCH (20:53)
[2023-04-05 21:16] LABS: GLUCOMETER DEV NAME(LOC) BV3N.; GLUCOSE,POINT OF CARE 204 MG/DL (70-110)
[2023-04-06 06:41] LABS: GLUCOMETER DEV NAME(LOC) BV3N.; GLUCOSE,POINT OF CARE 180 MG/DL (70-110)
[2023-04-06 08:06] VITALS: BP 119/72; PULSE 100; RESP 18; TEMP 97.6; O2SAT 95
[2023-04-06 11:46] LABS: GLUCOMETER DEV NAME(LOC) BV3N.; GLUCOSE,POINT OF CARE 484 MG/DL (70-110)
[2023-04-06 17:26] LABS: GLUCOMETER DEV NAME(LOC) BV3N.; GLUCOSE,POINT OF CARE 453 MG/DL (70-110)
[2023-04-06 20:02] VITALS: BP 125/75; PULSE 98; RESP 18; TEMP 97.8; O2SAT 98
[2023-04-06] MEDS: INSULIN GLARGINE,HUM.REC.ANLOG 100 UNITS/ML SQ SCH (20:24)
[2023-04-06 20:56] LABS: GLUCOMETER DEV NAME(LOC) BV3N.; GLUCOSE,POINT OF CARE 110 MG/DL (70-110)
[2023-04-07 08:17] VITALS: BP 113/76; PULSE 100; RESP 18; TEMP 97.6; O2SAT 97
[2023-04-07 11:57] LABS: GLUCOMETER DEV NAME(LOC) BV3N.; GLUCOSE,POINT OF CARE 349 MG/DL (70-110)
[2023-04-07 16:52] LABS: GLUCOMETER DEV NAME(LOC) BV3N.; GLUCOSE,POINT OF CARE 350 MG/DL (70-110)
[2023-04-07 20:02] VITALS: BP 125/74; PULSE 101; RESP 18; TEMP 97.9; O2SAT 97
[2023-04-08 03:57] LABS: GLUCOMETER DEV NAME(LOC) BV3N.; GLUCOSE,POINT OF CARE 318 MG/DL (70-110)
[2023-04-08 05:42] LABS: GLUCOMETER DEV NAME(LOC) BV3N.; GLUCOSE,POINT OF CARE 170 MG/DL (70-110)
[2023-04-08 08:21] VITALS: BP 107/64; PULSE 100; RESP 17; TEMP 97.1; O2SAT 98
[2023-04-08 13:07] LABS: CLOZAPINE & NORCLOZAPINE 324 ng/mL; NORCLOZAPINE 53 ng/mL (Not Estab.)
[2023-04-08 17:31] LABS: GLUCOMETER DEV NAME(LOC) BV3N.; GLUCOSE,POINT OF CARE 372 MG/DL (70-110)
[2023-04-08 20:21] LABS: GLUCOMETER DEV NAME(LOC) BV3N.; GLUCOSE,POINT OF CARE 127 MG/DL (70-110)
[2023-04-08 20:36] VITALS: BP 110/66; PULSE 96; RESP 16; TEMP 97.8; O2SAT 96
[2023-04-08] MEDS: CloZAPine 100 MG TABLET PO SCH (20:43)
[2023-04-09 06:36] LABS: GLUCOMETER DEV NAME(LOC) BV3N.; GLUCOSE,POINT OF CARE 227 MG/DL (70-110)
[2023-04-09 08:05] LABS: BASOPHILS % (AUTO) 0.7 % (0.0-2.0); HEMATOCRIT 40.5 % (41-53); HEMOGLOBIN 13.5 g/dL (13.5-17.5); LYMPHOCYTES % (AUTO) 31.6 % (22.0-44.0); MEAN CORPUSCULAR HEMOGLOBIN 32.9 pg (26.0-34.0); MEAN CORPUSCULAR HGB CONC 33.5 G/dL (31.0-37.0); MEAN CORPUSCULAR VOLUME 98 fL (80-100); MONOCYTES # (AUTO) 0.6 K/uL (0.1-1.0); MONOCYTES % (AUTO) 10.1 % (2.0-9.0); NEUTROPHILS # (AUTO) 3.5 K/uL (1.8-7.7); NEUTROPHILS % (AUTO) 55.6 % (40.0-70.0); PLATELET COUNT (AUTO) 182 K/uL (150-450); RED BLOOD CELL COUNT(AUTO) 4.12 MIL/uL (4.50-5.90); RED CELL DISTRIBUTION WIDTH 13.3 % (11.5-14.5); WHITE BLOOD COUNT (AUTO) 6.3 K/uL (4.5-11.0)
[2023-04-09 08:21] VITALS: BP 120/77; PULSE 92; RESP 17; TEMP 97.8; O2SAT 100
[2023-04-09 11:41] LABS: GLUCOMETER DEV NAME(LOC) BV3N.; GLUCOSE,POINT OF CARE 283 MG/DL (70-110)
[2023-04-09 17:26] LABS: GLUCOMETER DEV NAME(LOC) BV3N.; GLUCOSE,POINT OF CARE 300 MG/DL (70-110)
[2023-04-09 20:01] VITALS: BP 110/67; PULSE 91; RESP 18; TEMP 97.9; O2SAT 98
[2023-04-09 20:51] LABS: GLUCOMETER DEV NAME(LOC) BV3N.; GLUCOSE,POINT OF CARE 195 MG/DL (70-110)
[2023-04-10 06:41] LABS: GLUCOMETER DEV NAME(LOC) BV3N.; GLUCOSE,POINT OF CARE 232 MG/DL (70-110)
[2023-04-10 08:00] VITALS: BP 126/86; PULSE 85; RESP 16; TEMP 97.7
[2023-04-10 11:46] LABS: GLUCOMETER DEV NAME(LOC) BV3N.; GLUCOSE,POINT OF CARE 325 MG/DL (70-110)
[2023-04-10 17:06] LABS: GLUCOMETER DEV NAME(LOC) BV3N.; GLUCOSE,POINT OF CARE 330 MG/DL (70-110)
[2023-04-10 20:51] LABS: GLUCOMETER DEV NAME(LOC) BV3N.; GLUCOSE,POINT OF CARE 276 MG/DL (70-110)
[2023-04-10 22:51] VITALS: BP 120/76; PULSE 84; RESP 18; TEMP 98; O2SAT 98
[2023-04-11 06:21] LABS: GLUCOMETER DEV NAME(LOC) BV3N.; GLUCOSE,POINT OF CARE 137 MG/DL (70-110)
[2023-04-11 11:50] LABS: GLUCOMETER DEV NAME(LOC) BV3N.; GLUCOSE,POINT OF CARE 294 MG/DL (70-110)
[2023-04-11 17:16] LABS: GLUCOMETER DEV NAME(LOC) BV3N.; GLUCOSE,POINT OF CARE 322 MG/DL (70-110)
[2023-04-11 20:21] LABS: GLUCOMETER DEV NAME(LOC) BV3N.; GLUCOSE,POINT OF CARE 187 MG/DL (70-110)
[2023-04-11 20:45] VITALS: BP 114/71; PULSE 100; RESP 18; TEMP 97.5; O2SAT 100
[2023-04-12 06:31] LABS: GLUCOMETER DEV NAME(LOC) BV3N.; GLUCOSE,POINT OF CARE 137 MG/DL (70-110)
[2023-04-12 08:46] VITALS: BP_SYST 113; BP_SYST 132; BP_DIAS 69; BP_DIAS 70; PULSE 95; PULSE 99; RESP 17; RESP 18; TEMP 97.5; TEMP 97.8; O2SAT 93; O2SAT 98
[2023-04-12 12:02] LABS: GLUCOMETER DEV NAME(LOC) BV3N.; GLUCOSE,POINT OF CARE 357 MG/DL (70-110)
[2023-04-12 17:11] LABS: GLUCOMETER DEV NAME(LOC) BV3N.; GLUCOSE,POINT OF CARE 347 MG/DL (70-110)
[2023-04-12 21:06] LABS: GLUCOMETER DEV NAME(LOC) BV3N.; GLUCOSE,POINT OF CARE 261 MG/DL (70-110)
[2023-04-13 06:36] LABS: GLUCOMETER DEV NAME(LOC) BV3N.; GLUCOSE,POINT OF CARE 124 MG/DL (70-110)
[2023-04-13 08:08] VITALS: BP 123/80; PULSE 106; RESP 18; TEMP 97.7; O2SAT 97
[2023-04-13 20:01] LABS: GLUCOMETER DEV NAME(LOC) BV3N.; GLUCOSE,POINT OF CARE 301 MG/DL (70-110)
[2023-04-14 06:21] LABS: GLUCOMETER DEV NAME(LOC) BV3N.; GLUCOSE,POINT OF CARE 357 MG/DL (70-110)
[2023-04-14 08:15] VITALS: BP 118/62; PULSE 104; RESP 17; TEMP 97.9; O2SAT 97
[2023-04-14 11:21] LABS: GLUCOMETER DEV NAME(LOC) BV3N.; GLUCOSE,POINT OF CARE 145 MG/DL (70-110)
[2023-04-14 20:03] VITALS: BP 114/74; PULSE 100; RESP 18; TEMP 97.6; O2SAT 92
[2023-04-14 20:56] LABS: GLUCOMETER DEV NAME(LOC) BV3N.; GLUCOSE,POINT OF CARE 307 MG/DL (70-110)
[2023-04-14 20:56] LABS: GLUCOMETER DEV NAME(LOC) BV3N.; GLUCOSE,POINT OF CARE 226 MG/DL (70-110)
[2023-04-15 06:01] LABS: GLUCOMETER DEV NAME(LOC) BV3N.; GLUCOSE,POINT OF CARE 119 MG/DL (70-110)
[2023-04-15 08:05] VITALS: BP 111/66; PULSE 100; RESP 17; TEMP 97.6; O2SAT 100
[2023-04-15 11:46] LABS: GLUCOMETER DEV NAME(LOC) BV3N.; GLUCOSE,POINT OF CARE 265 MG/DL (70-110)
[2023-04-15 16:41] LABS: GLUCOMETER DEV NAME(LOC) BV3N.; GLUCOSE,POINT OF CARE 376 MG/DL (70-110)
[2023-04-15 20:09] VITALS: BP 121/82; PULSE 104; RESP 20; TEMP 97.7; O2SAT 100
[2023-04-15 20:26] LABS: GLUCOMETER DEV NAME(LOC) BV3N.; GLUCOSE,POINT OF CARE 269 MG/DL (70-110)
[2023-04-16 07:06] LABS: GLUCOMETER DEV NAME(LOC) BV3N.; GLUCOSE,POINT OF CARE 79 MG/DL (70-110)
[2023-04-16 08:12] VITALS: BP 125/74; PULSE 100; RESP 17; TEMP 97.5; O2SAT 97
[2023-04-16 08:19] LABS: BASOPHILS % (AUTO) 0.8 % (0.0-2.0); EOSINOPHILS % (AUTO) 2.9 % (1.0-6.0); HEMATOCRIT 40.8 % (41-53); HEMOGLOBIN 13.6 g/dL (13.5-17.5); LYMPHOCYTES # (AUTO) 2.3 K/uL (1.0-4.8); MEAN CORPUSCULAR HEMOGLOBIN 32.9 pg (26.0-34.0); MEAN CORPUSCULAR HGB CONC 33.4 G/dL (31.0-37.0); MEAN CORPUSCULAR VOLUME 99 fL (80-100); MONOCYTES # (AUTO) 0.8 K/uL (0.1-1.0); NEUTROPHILS # (AUTO) 3.8 K/uL (1.8-7.7); NEUTROPHILS % (AUTO) 53.3 % (40.0-70.0); PLATELET COUNT (AUTO) 141 K/uL (150-450); RED BLOOD CELL COUNT(AUTO) 4.14 MIL/uL (4.50-5.90); RED CELL DISTRIBUTION WIDTH 13.5 % (11.5-14.5); WHITE BLOOD COUNT (AUTO) 7.1 K/uL (4.5-11.0)
[2023-04-16 11:36] LABS: GLUCOMETER DEV NAME(LOC) BV3N.; GLUCOSE,POINT OF CARE 207 MG/DL (70-110)
[2023-04-16 17:11] LABS: GLUCOMETER DEV NAME(LOC) BV3N.; GLUCOSE,POINT OF CARE 348 MG/DL (70-110)
[2023-04-16 20:09] VITALS: BP 110/73; PULSE 103; RESP 18; TEMP 97.7; O2SAT 97
[2023-04-16 21:21] LABS: GLUCOMETER DEV NAME(LOC) BV3N.; GLUCOSE,POINT OF CARE 206 MG/DL (70-110)
[2023-04-17 06:22] LABS: GLUCOMETER DEV NAME(LOC) BV3N.; GLUCOSE,POINT OF CARE 132 MG/DL (70-110)
[2023-04-17 08:56] VITALS: BP 120/72; PULSE 100; RESP 18; TEMP 97.8; O2SAT 96
[2023-04-17 12:41] LABS: GLUCOMETER DEV NAME(LOC) BV3N.; GLUCOSE,POINT OF CARE 293 MG/DL (70-110)
[2023-04-17 16:46] LABS: GLUCOMETER DEV NAME(LOC) BV3N.; GLUCOSE,POINT OF CARE 265 MG/DL (70-110)
[2023-04-17 20:25] VITALS: BP 130/66; PULSE 81; RESP 16; TEMP 97.4; O2SAT 98
[2023-04-17 21:26] LABS: GLUCOMETER DEV NAME(LOC) BV3N.; GLUCOSE,POINT OF CARE 320 MG/DL (70-110)
[2023-04-18 07:01] LABS: GLUCOMETER DEV NAME(LOC) BV3N.; GLUCOSE,POINT OF CARE 158 MG/DL (70-110)
[2023-04-18 11:21] LABS: GLUCOMETER DEV NAME(LOC) BV3N.; GLUCOSE,POINT OF CARE 337 MG/DL (70-110)
[2023-04-18 16:26] LABS: GLUCOMETER DEV NAME(LOC) BV3N.; GLUCOSE,POINT OF CARE 274 MG/DL (70-110)
[2023-04-18 18:30] VITALS: BP 128/60; PULSE 80; RESP 17; TEMP 98.2; O2SAT 98
[2023-04-18 20:11] VITALS: BP 131/67; PULSE 72; RESP 18; TEMP 97.8; O2SAT 96
[2023-04-18 21:31] LABS: GLUCOMETER DEV NAME(LOC) BV3N.; GLUCOSE,POINT OF CARE 352 MG/DL (70-110)
[2023-04-19 06:41] LABS: GLUCOMETER DEV NAME(LOC) BV3N.; GLUCOSE,POINT OF CARE 186 MG/DL (70-110)
[2023-04-19 08:35] VITALS: BP 116/63; PULSE 87; RESP 17; TEMP 97.5; O2SAT 97
[2023-04-19 11:21] LABS: GLUCOMETER DEV NAME(LOC) BV3N.; GLUCOSE,POINT OF CARE 273 MG/DL (70-110)
[2023-04-19 16:56] LABS: GLUCOMETER DEV NAME(LOC) BV3N.; GLUCOSE,POINT OF CARE 166 MG/DL (70-110)
[2023-04-19 20:06] VITALS: BP 116/74; PULSE 102; RESP 18; TEMP 98.2; O2SAT 99
[2023-04-19] MEDS: CloZAPine 100 MG TABLET PO SCH (20:47)
[2023-04-19 21:10] LABS: GLUCOMETER DEV NAME(LOC) BV3N.; GLUCOSE,POINT OF CARE 209 MG/DL (70-110)
[2023-04-20 06:46] LABS: GLUCOMETER DEV NAME(LOC) BV3N.; GLUCOSE,POINT OF CARE 151 MG/DL (70-110)
[2023-04-20 08:33] VITALS: BP 115/71; RESP 17; TEMP 97.7; O2SAT 98
[2023-04-20 12:06] LABS: GLUCOMETER DEV NAME(LOC) BV3N.; GLUCOSE,POINT OF CARE 349 MG/DL (70-110)
[2023-04-20 17:16] LABS: GLUCOMETER DEV NAME(LOC) BV3N.; GLUCOSE,POINT OF CARE 247 MG/DL (70-110)
[2023-04-20 20:05] VITALS: BP 121/73; PULSE 101; RESP 18; TEMP 97.5; O2SAT 98
[2023-04-20 20:21] LABS: GLUCOMETER DEV NAME(LOC) BV3N.; GLUCOSE,POINT OF CARE 247 MG/DL (70-110)
[2023-04-21 06:47] LABS: GLUCOMETER DEV NAME(LOC) BV3N.; GLUCOSE,POINT OF CARE 130 MG/DL (70-110)
[2023-04-21 08:09] VITALS: BP 119/71; PULSE 105; RESP 17; TEMP 97.7; O2SAT 97
[2023-04-21 11:41] LABS: GLUCOMETER DEV NAME(LOC) BV3N.; GLUCOSE,POINT OF CARE 284 MG/DL (70-110)
[2023-04-21] MEDS: INSULIN LISPRO 100 UNITS/ML SQ ONE (16:52)
[2023-04-21 17:31] LABS: GLUCOMETER DEV NAME(LOC) BV3N.; GLUCOSE,POINT OF CARE 458 MG/DL (70-110)
[2023-04-21 20:02] VITALS: BP 146/73; PULSE 101; RESP 18; TEMP 98; O2SAT 96
[2023-04-21 20:31] LABS: GLUCOMETER DEV NAME(LOC) BV3N.; GLUCOSE,POINT OF CARE 166 MG/DL (70-110)
[2023-04-21] MEDS: INSULIN GLARGINE,HUM.REC.ANLOG 100 UNITS/ML SQ SCH (20:58)
[2023-04-22 06:46] LABS: GLUCOMETER DEV NAME(LOC) BV3N.; GLUCOSE,POINT OF CARE 106 MG/DL (70-110)
[2023-04-22 07:55] VITALS: BP 138/60; PULSE 111; RESP 18; TEMP 97.7; O2SAT 96
[2023-04-22 08:01] VITALS: BP 138/60; PULSE 100; RESP 18; TEMP 97.7; O2SAT 96
[2023-04-22 17:51] LABS: GLUCOMETER DEV NAME(LOC) BV3N.; GLUCOSE,POINT OF CARE 339 MG/DL (70-110)
[2023-04-22 20:00] VITALS: BP 118/61; PULSE 95; RESP 18; TEMP 98.2; O2SAT 97
[2023-04-22 21:01] LABS: GLUCOMETER DEV NAME(LOC) BV3N.; GLUCOSE,POINT OF CARE 262 MG/DL (70-110)
[2023-04-23 07:01] LABS: GLUCOMETER DEV NAME(LOC) BV3N.; GLUCOSE,POINT OF CARE 197 MG/DL (70-110)
[2023-04-23] MEDS ORDERED: DiphenhydrAMINE HCL 50 MG/ML VIAL ONE (08:31)
[2023-04-23] MEDS ORDERED: LORazepam 2 MG/ML VIAL ONE (08:31)
[2023-04-23] MEDS ORDERED: HALOPERIDOL LACTATE 5 MG/ML VIAL ONE (08:31)
[2023-04-23] MEDS: DiphenhydrAMINE HCL 50 MG/ML VIAL IM ONE (08:46)
[2023-04-23] MEDS: HALOPERIDOL LACTATE 5 MG/ML VIAL IM ONE (08:47)
[2023-04-23 08:48] LABS: BASOPHILS % (AUTO) 0.4 % (0.0-2.0); EOSINOPHILS % (AUTO) 4.3 % (1.0-6.0); HEMATOCRIT 42.9 % (41-53); HEMOGLOBIN 14.2 g/dL (13.5-17.5); LYMPHOCYTES # (AUTO) 2.2 K/uL (1.0-4.8); LYMPHOCYTES % (AUTO) 31.8 % (22.0-44.0); MEAN CORPUSCULAR HEMOGLOBIN 32.9 pg (26.0-34.0); MEAN CORPUSCULAR HGB CONC 33.1 G/dL (31.0-37.0); MEAN CORPUSCULAR VOLUME 100 fL (80-100); MONOCYTES # (AUTO) 0.8 K/uL (0.1-1.0); MONOCYTES % (AUTO) 11.3 % (2.0-9.0); NEUTROPHILS # (AUTO) 3.6 K/uL (1.8-7.7); NEUTROPHILS % (AUTO) 52.2 % (40.0-70.0); PLATELET COUNT (AUTO) 132 K/uL (150-450); RED BLOOD CELL COUNT(AUTO) 4.32 MIL/uL (4.50-5.90); RED CELL DISTRIBUTION WIDTH 13.5 % (11.5-14.5)
[2023-04-23] MEDS: LORazepam 2 MG/ML VIAL IM ONE (08:48)
[2023-04-23 09:57] VITALS: BP 151/82; RESP 17; TEMP 97.8; O2SAT 96
[2023-04-23 21:16] LABS: GLUCOMETER DEV NAME(LOC) BV3N.; GLUCOSE,POINT OF CARE 285 MG/DL (70-110)
[2023-04-23 22:11] VITALS: BP 145/80; PULSE 98; RESP 18; TEMP 98
[2023-04-24 06:16] LABS: GLUCOMETER DEV NAME(LOC) BV3N.; GLUCOSE,POINT OF CARE 128 MG/DL (70-110)
[2023-04-24 08:04] VITALS: BP 127/78; PULSE 94; RESP 20; TEMP 97.2; O2SAT 98
[2023-04-24 11:36] LABS: GLUCOMETER DEV NAME(LOC) BV3N.; GLUCOSE,POINT OF CARE 256 MG/DL (70-110)
[2023-04-24 17:12] LABS: GLUCOMETER DEV NAME(LOC) BV3N.; GLUCOSE,POINT OF CARE 362 MG/DL (70-110)
[2023-04-24 20:03] VITALS: BP 135/69; PULSE 107; RESP 18; TEMP 97.8; O2SAT 98
[2023-04-24 22:01] LABS: GLUCOMETER DEV NAME(LOC) BV3N.; GLUCOSE,POINT OF CARE 135 MG/DL (70-110)
[2023-04-25 08:47] VITALS: BP 121/72; PULSE 96; RESP 17; TEMP 97.3; O2SAT 98
[2023-04-25 12:21] LABS: GLUCOMETER DEV NAME(LOC) BV3N.; GLUCOSE,POINT OF CARE 319 MG/DL (70-110)
[2023-04-25 16:56] LABS: GLUCOMETER DEV NAME(LOC) BV3N.; GLUCOSE,POINT OF CARE 290 MG/DL (70-110)
[2023-04-25 21:01] LABS: GLUCOMETER DEV NAME(LOC) BV3N.; GLUCOSE,POINT OF CARE 116 MG/DL (70-110)
[2023-04-25 21:13] VITALS: RESP 17
[2023-04-26 06:25] LABS: GLUCOMETER DEV NAME(LOC) BV3N.; GLUCOSE,POINT OF CARE 99 MG/DL (70-110)
[2023-04-26 08:20] VITALS: BP 131/84; PULSE 100; RESP 18; TEMP 97.5; O2SAT 99
[2023-04-26 08:25] VITALS: BP 130/81; PULSE 100; RESP 17; TEMP 97.6; O2SAT 98
[2023-04-26 11:26] LABS: GLUCOMETER DEV NAME(LOC) BV3N.; GLUCOSE,POINT OF CARE 249 MG/DL (70-110)
[2023-04-26 14:06] LABS: CLOZAPINE & NORCLOZAPINE 319 ng/mL; NORCLOZAPINE 74 ng/mL (Not Estab.)
[2023-04-26 17:21] LABS: GLUCOMETER DEV NAME(LOC) BV3N.; GLUCOSE,POINT OF CARE 402 MG/DL (70-110)
[2023-04-26] MEDS: INSULIN LISPRO 100 UNITS/ML SQ PRN (17:54)
[2023-04-26 20:03] VITALS: BP 122/82; PULSE 111; RESP 18; TEMP 97.7; O2SAT 96
[2023-04-26 20:20] LABS: GLUCOMETER DEV NAME(LOC) BV3N.; GLUCOSE,POINT OF CARE 91 MG/DL (70-110)
[2023-04-27 06:26] LABS: GLUCOMETER DEV NAME(LOC) BV3N.; GLUCOSE,POINT OF CARE 179 MG/DL (70-110)
[2023-04-27] MEDS: INSULIN GLARGINE,HUM.REC.ANLOG 100 UNITS/ML SQ SCH ×2 (08:08→08:59)
[2023-04-27 08:17] VITALS: BP 112/70; PULSE 97; RESP 18; TEMP 97.7; O2SAT 99
[2023-04-27 11:41] LABS: GLUCOMETER DEV NAME(LOC) BV3N.; GLUCOSE,POINT OF CARE 298 MG/DL (70-110)
[2023-04-27 17:01] LABS: GLUCOMETER DEV NAME(LOC) BV3N.; GLUCOSE,POINT OF CARE 361 MG/DL (70-110)
[2023-04-27] MEDS: CloZAPine 100 MG TABLET PO SCH (20:06)
[2023-04-27 20:10] VITALS: BP 135/64; PULSE 109; RESP 20; TEMP 97.7; O2SAT 100
[2023-04-27 20:45] LABS: GLUCOMETER DEV NAME(LOC) BV3N.; GLUCOSE,POINT OF CARE 122 MG/DL (70-110)
[2023-04-28 06:51] LABS: GLUCOMETER DEV NAME(LOC) BV3N.; GLUCOSE,POINT OF CARE 274 MG/DL (70-110)
[2023-04-28 08:16] LABS: GLUCOMETER DEV NAME(LOC) BV3N.; GLUCOSE,POINT OF CARE 248 MG/DL (70-110)
[2023-04-28 09:01] VITALS: BP 125/85; PULSE 100; RESP 20; TEMP 97.3; O2SAT 98
[2023-04-28 11:51] LABS: GLUCOMETER DEV NAME(LOC) BV3N.; GLUCOSE,POINT OF CARE 269 MG/DL (70-110)
[2023-04-28 17:05] LABS: GLUCOMETER DEV NAME(LOC) BV3N.; GLUCOSE,POINT OF CARE 308 MG/DL (70-110)
[2023-04-28 20:26] VITALS: RESP 19
[2023-04-28 20:32] LABS: GLUCOMETER DEV NAME(LOC) BV3N.; GLUCOSE,POINT OF CARE 253 MG/DL (70-110)
[2023-04-29] MEDS: INSULIN LISPRO 100 UNITS/ML SQ SCH (06:39)
[2023-04-29 06:41] LABS: GLUCOMETER DEV NAME(LOC) BV3N.; GLUCOSE,POINT OF CARE 173 MG/DL (70-110)
[2023-04-29 11:46] LABS: GLUCOMETER DEV NAME(LOC) BV3N.; GLUCOSE,POINT OF CARE 200 MG/DL (70-110)
[2023-04-29 17:22] LABS: GLUCOMETER DEV NAME(LOC) BV3N.; GLUCOSE,POINT OF CARE 236 MG/DL (70-110)
[2023-04-29 20:42] VITALS: BP 122/83; PULSE 103; RESP 20; TEMP 97.7; O2SAT 99
[2023-04-29 21:02] LABS: GLUCOMETER DEV NAME(LOC) BV3N.; GLUCOSE,POINT OF CARE 234 MG/DL (70-110)
[2023-04-30 06:12] LABS: GLUCOMETER DEV NAME(LOC) BV3N.; GLUCOSE,POINT OF CARE 200 MG/DL (70-110)
[2023-04-30 08:19] VITALS: BP 102/78; PULSE 102; RESP 17; TEMP 97.3; O2SAT 98
[2023-04-30 09:02] LABS: BASOPHILS % (AUTO) 0.7 % (0.0-2.0); EOSINOPHILS % (AUTO) 3.8 % (1.0-6.0); HEMATOCRIT 42.6 % (41-53); HEMOGLOBIN 14.2 g/dL (13.5-17.5); LYMPHOCYTES # (AUTO) 1.8 K/uL (1.0-4.8); LYMPHOCYTES % (AUTO) 24.3 % (22.0-44.0); MEAN CORPUSCULAR HEMOGLOBIN 33.5 pg (26.0-34.0); MEAN CORPUSCULAR HGB CONC 33.4 G/dL (31.0-37.0); MEAN CORPUSCULAR VOLUME 100 fL (80-100); MONOCYTES # (AUTO) 0.7 K/uL (0.1-1.0); MONOCYTES % (AUTO) 9.9 % (2.0-9.0); NEUTROPHILS # (AUTO) 4.6 K/uL (1.8-7.7); NEUTROPHILS % (AUTO) 61.3 % (40.0-70.0); PLATELET COUNT (AUTO) 147 K/uL (150-450); RED BLOOD CELL COUNT(AUTO) 4.25 MIL/uL (4.50-5.90); RED CELL DISTRIBUTION WIDTH 13.4 % (11.5-14.5); WHITE BLOOD COUNT (AUTO) 7.5 K/uL (4.5-11.0)
[2023-04-30 11:36] LABS: GLUCOMETER DEV NAME(LOC) BV3N.; GLUCOSE,POINT OF CARE 238 MG/DL (70-110)
[2023-04-30 18:21] LABS: GLUCOMETER DEV NAME(LOC) BV3N.; GLUCOSE,POINT OF CARE 332 MG/DL (70-110)
[2023-04-30 20:03] VITALS: BP 116/73; PULSE 95; RESP 18; TEMP 97.8; O2SAT 99
[2023-04-30 20:41] LABS: GLUCOMETER DEV NAME(LOC) BV3N.; GLUCOSE,POINT OF CARE 93 MG/DL (70-110)
[2023-05-01 08:51] LABS: GLUCOMETER DEV NAME(LOC) BV3N.; GLUCOSE,POINT OF CARE 305 MG/DL (70-110)
[2023-05-01 08:58] VITALS: BP 115/72; PULSE 70; RESP 20; TEMP 97.7; O2SAT 99
[2023-05-01 11:21] LABS: GLUCOMETER DEV NAME(LOC) BV3N.; GLUCOSE,POINT OF CARE 283 MG/DL (70-110)
[2023-05-01 16:21] LABS: GLUCOMETER DEV NAME(LOC) BV3N.; GLUCOSE,POINT OF CARE 304 MG/DL (70-110)
[2023-05-01 19:59] VITALS: BP 111/72; PULSE 106; RESP 19; TEMP 97.6; O2SAT 98
[2023-05-01 20:00] VITALS: BP 111/72; PULSE 106; RESP 19; TEMP 97.6; O2SAT 98
[2023-05-01 21:21] LABS: GLUCOMETER DEV NAME(LOC) BV3N.; GLUCOSE,POINT OF CARE 176 MG/DL (70-110)
[2023-05-02 08:20] VITALS: RESP 18
[2023-05-02 09:46] LABS: GLUCOMETER DEV NAME(LOC) BV3N.; GLUCOSE,POINT OF CARE 289 MG/DL (70-110)
[2023-05-02 11:32] LABS: GLUCOMETER DEV NAME(LOC) BV3N.; GLUCOSE,POINT OF CARE 333 MG/DL (70-110)
[2023-05-02 17:06] LABS: GLUCOMETER DEV NAME(LOC) BV3N.; GLUCOSE,POINT OF CARE 253 MG/DL (70-110)
[2023-05-02 20:01] VITALS: BP 116/79; PULSE 69; RESP 19; TEMP 97.7; O2SAT 91
[2023-05-02 20:51] LABS: GLUCOMETER DEV NAME(LOC) BV3N.; GLUCOSE,POINT OF CARE 211 MG/DL (70-110)
[2023-05-03 08:15] VITALS: BP 122/70; PULSE 100; RESP 18; TEMP 97.5; O2SAT 98
[2023-05-03 08:56] LABS: GLUCOMETER DEV NAME(LOC) BV3N.; GLUCOSE,POINT OF CARE 367 MG/DL (70-110)
[2023-05-03 11:56] LABS: GLUCOMETER DEV NAME(LOC) BV3N.; GLUCOSE,POINT OF CARE 393 MG/DL (70-110)
[2023-05-03 17:56] LABS: GLUCOMETER DEV NAME(LOC) BV3N.; GLUCOSE,POINT OF CARE 270 MG/DL (70-110)
[2023-05-03 20:06] VITALS: BP 107/69; PULSE 105; RESP 18; TEMP 97.8; O2SAT 99
[2023-05-03 20:26] LABS: GLUCOMETER DEV NAME(LOC) BV3N.; GLUCOSE,POINT OF CARE 84 MG/DL (70-110)
[2023-05-04 08:13] VITALS: BP 112/73; RESP 17; TEMP 97.3; O2SAT 98
[2023-05-04 10:51] LABS: GLUCOMETER DEV NAME(LOC) BV3N.; GLUCOSE,POINT OF CARE 233 MG/DL (70-110)
[2023-05-04 11:07] LABS: CLOZAPINE & NORCLOZAPINE 441 ng/mL; NORCLOZAPINE 111 ng/mL (Not Estab.)
[2023-05-04 11:36] LABS: GLUCOMETER DEV NAME(LOC) BV3N.; GLUCOSE,POINT OF CARE 297 MG/DL (70-110)
[2023-05-04 16:41] LABS: GLUCOMETER DEV NAME(LOC) BV3N.; GLUCOSE,POINT OF CARE 297 MG/DL (70-110)
[2023-05-04 20:03] VITALS: BP 118/64; PULSE 100; RESP 18; TEMP 97.7; O2SAT 97
[2023-05-04 20:32] LABS: GLUCOMETER DEV NAME(LOC) BV3N.; GLUCOSE,POINT OF CARE 102 MG/DL (70-110)
[2023-05-05 06:21] LABS: GLUCOMETER DEV NAME(LOC) BV3N.; GLUCOSE,POINT OF CARE 120 MG/DL (70-110)
[2023-05-05 08:02] VITALS: BP 141/71; RESP 17; TEMP 97.6; O2SAT 98
[2023-05-05 08:41] LABS: GLUCOMETER DEV NAME(LOC) BV3N.; GLUCOSE,POINT OF CARE 281 MG/DL (70-110)
[2023-05-05 11:26] LABS: GLUCOMETER DEV NAME(LOC) BV3N.; GLUCOSE,POINT OF CARE 273 MG/DL (70-110)
[2023-05-05 17:11] LABS: GLUCOMETER DEV NAME(LOC) BV3N.; GLUCOSE,POINT OF CARE 287 MG/DL (70-110)
[2023-05-05 20:09] VITALS: BP 124/66; PULSE 104; RESP 18; TEMP 97.8; O2SAT 97
[2023-05-05] MEDS: CloZAPine 100 MG TABLET PO SCH (21:14)
[2023-05-05 21:26] LABS: GLUCOMETER DEV NAME(LOC) BV3N.; GLUCOSE,POINT OF CARE 217 MG/DL (70-110)
[2023-05-06 06:16] LABS: GLUCOMETER DEV NAME(LOC) BV3N.; GLUCOSE,POINT OF CARE 183 MG/DL (70-110)
[2023-05-06 08:04] VITALS: BP 123/74; PULSE 111; RESP 17; TEMP 97.5; O2SAT 97
[2023-05-06 11:31] LABS: GLUCOMETER DEV NAME(LOC) BV3N.; GLUCOSE,POINT OF CARE 154 MG/DL (70-110)
[2023-05-06 16:56] LABS: GLUCOMETER DEV NAME(LOC) BV3N.; GLUCOSE,POINT OF CARE 251 MG/DL (70-110)
[2023-05-06 20:02] VITALS: BP 118/68; PULSE 108; RESP 18; TEMP 97.8; O2SAT 97
[2023-05-06 21:06] LABS: GLUCOMETER DEV NAME(LOC) BV3N.; GLUCOSE,POINT OF CARE 269 MG/DL (70-110)
[2023-05-07 08:08] VITALS: BP 120/83; PULSE 100; RESP 17; TEMP 97.6; O2SAT 97
[2023-05-07 08:18] LABS: BASOPHILS % (AUTO) 0.6 % (0.0-2.0); EOSINOPHILS % (AUTO) 2.2 % (1.0-6.0); HEMATOCRIT 39.1 % (41-53); HEMOGLOBIN 13.4 g/dL (13.5-17.5); LYMPHOCYTES # (AUTO) 1.9 K/uL (1.0-4.8); LYMPHOCYTES % (AUTO) 26.3 % (22.0-44.0); MEAN CORPUSCULAR HEMOGLOBIN 33.8 pg (26.0-34.0); MEAN CORPUSCULAR HGB CONC 34.4 G/dL (31.0-37.0); MEAN CORPUSCULAR VOLUME 98 fL (80-100); MONOCYTES # (AUTO) 0.7 K/uL (0.1-1.0); MONOCYTES % (AUTO) 10.3 % (2.0-9.0); NEUTROPHILS # (AUTO) 4.3 K/uL (1.8-7.7); NEUTROPHILS % (AUTO) 60.6 % (40.0-70.0); PLATELET COUNT (AUTO) 182 K/uL (150-450); RED BLOOD CELL COUNT(AUTO) 3.98 MIL/uL (4.50-5.90); WHITE BLOOD COUNT (AUTO) 7.1 K/uL (4.5-11.0)
[2023-05-07 12:11] LABS: GLUCOMETER DEV NAME(LOC) BV3N.; GLUCOSE,POINT OF CARE 191 MG/DL (70-110)
[2023-05-07 12:11] LABS: GLUCOMETER DEV NAME(LOC) BV3N.; GLUCOSE,POINT OF CARE 114 MG/DL (70-110)
[2023-05-07 16:31] LABS: GLUCOMETER DEV NAME(LOC) BV3N.; GLUCOSE,POINT OF CARE 337 MG/DL (70-110)
[2023-05-07 20:35] LABS: GLUCOMETER DEV NAME(LOC) BV3N.; GLUCOSE,POINT OF CARE 231 MG/DL (70-110)
[2023-05-08 00:36] VITALS: BP 116/85; PULSE 98; RESP 18; TEMP 97.8; O2SAT 97
[2023-05-08 06:17] LABS: GLUCOMETER DEV NAME(LOC) BV3N.; GLUCOSE,POINT OF CARE 189 MG/DL (70-110)
[2023-05-08 08:05] VITALS: BP 120/78; PULSE 100; RESP 17; TEMP 97.8; O2SAT 98
[2023-05-08 11:16] LABS: GLUCOMETER DEV NAME(LOC) BV3N.; GLUCOSE,POINT OF CARE 260 MG/DL (70-110)
[2023-05-08 17:26] LABS: GLUCOMETER DEV NAME(LOC) BV3N.; GLUCOSE,POINT OF CARE 178 MG/DL (70-110)
[2023-05-08 20:03] VITALS: BP 114/70; PULSE 104; RESP 18; TEMP 97.7; O2SAT 98
[2023-05-08 21:21] LABS: GLUCOMETER DEV NAME(LOC) BV3N.; GLUCOSE,POINT OF CARE 221 MG/DL (70-110)
[2023-05-09 06:31] LABS: GLUCOMETER DEV NAME(LOC) BV3N.; GLUCOSE,POINT OF CARE 125 MG/DL (70-110)
[2023-05-09 08:02] VITALS: BP 127/60; RESP 17; TEMP 97.5; O2SAT 99
[2023-05-09 12:01] LABS: GLUCOMETER DEV NAME(LOC) BV3N.; GLUCOSE,POINT OF CARE 151 MG/DL (70-110)
[2023-05-09 16:46] LABS: GLUCOMETER DEV NAME(LOC) BV3N.; GLUCOSE,POINT OF CARE 325 MG/DL (70-110)
[2023-05-09 20:30] VITALS: RESP 18; TEMP 97.8
[2023-05-09 21:16] LABS: GLUCOMETER DEV NAME(LOC) BV3N.; GLUCOSE,POINT OF CARE 146 MG/DL (70-110)
[2023-05-10 06:21] LABS: GLUCOMETER DEV NAME(LOC) BV3N.; GLUCOSE,POINT OF CARE 126 MG/DL (70-110)
[2023-05-10 08:27] VITALS: BP 139/68; PULSE 100; RESP 18; TEMP 97.1; O2SAT 97
[2023-05-10 09:31] LABS: GLUCOMETER DEV NAME(LOC) BV3N.; GLUCOSE,POINT OF CARE 172 MG/DL (70-110)
[2023-05-10 11:51] LABS: GLUCOMETER DEV NAME(LOC) BV3N.; GLUCOSE,POINT OF CARE 211 MG/DL (70-110)
[2023-05-10 17:26] LABS: GLUCOMETER DEV NAME(LOC) BV3N.; GLUCOSE,POINT OF CARE 272 MG/DL (70-110)
[2023-05-10 20:15] VITALS: BP 125/75; PULSE 112; RESP 20; TEMP 97.6; O2SAT 100
[2023-05-10 20:55] LABS: GLUCOMETER DEV NAME(LOC) BV3N.; GLUCOSE,POINT OF CARE 155 MG/DL (70-110)
[2023-05-11 06:32] LABS: GLUCOMETER DEV NAME(LOC) BV3N.; GLUCOSE,POINT OF CARE 104 MG/DL (70-110)
[2023-05-11 10:06] LABS: GLUCOMETER DEV NAME(LOC) BV3N.; GLUCOSE,POINT OF CARE 397 MG/DL (70-110)
[2023-05-11 10:10] VITALS: BP 154/91; PULSE 107; RESP 20; TEMP 97.2; O2SAT 100
[2023-05-11 12:11] LABS: GLUCOMETER DEV NAME(LOC) BV3N.; GLUCOSE,POINT OF CARE 226 MG/DL (70-110)
[2023-05-11 18:31] LABS: GLUCOMETER DEV NAME(LOC) BV3N.; GLUCOSE,POINT OF CARE 178 MG/DL (70-110)
[2023-05-11 20:03] VITALS: BP 132/80; PULSE 102; RESP 18; TEMP 97.6; O2SAT 97
[2023-05-11 21:36] LABS: GLUCOMETER DEV NAME(LOC) BV3N.; GLUCOSE,POINT OF CARE 165 MG/DL (70-110)
[2023-05-12 06:47] LABS: GLUCOMETER DEV NAME(LOC) BV3N.; GLUCOSE,POINT OF CARE 137 MG/DL (70-110)
[2023-05-12 08:25] VITALS: BP 132/81; PULSE 100; RESP 18; TEMP 97.7; O2SAT 99
[2023-05-12 11:41] LABS: GLUCOMETER DEV NAME(LOC) BV3N.; GLUCOSE,POINT OF CARE 283 MG/DL (70-110)
[2023-05-12 16:56] LABS: GLUCOMETER DEV NAME(LOC) BV3N.; GLUCOSE,POINT OF CARE 350 MG/DL (70-110)
[2023-05-12 20:30] LABS: GLUCOMETER DEV NAME(LOC) BV3N.; GLUCOSE,POINT OF CARE 198 MG/DL (70-110)
[2023-05-12 20:46] VITALS: RESP 18; TEMP 97.7
[2023-05-12] MEDS: GLYCOPYRROLATE 1 MG TABLET PO ONE (21:20)
[2023-05-13 06:26] LABS: GLUCOMETER DEV NAME(LOC) BV3N.; GLUCOSE,POINT OF CARE 141 MG/DL (70-110)
[2023-05-13] MEDS: INSULIN LISPRO 100 UNITS/ML SQ SCH (06:46)
[2023-05-13 08:04] VITALS: BP 127/63; PULSE 100; RESP 17; TEMP 97.5; O2SAT 99
[2023-05-13] MEDS: INSULIN GLARGINE,HUM.REC.ANLOG 100 UNITS/ML SQ SCH (08:26)
[2023-05-13] MEDS: INFLUENZA VIRUS VACCINE QVS 2023-24 (6MO+)/PF 60 MCG/0.5 ML SYRINGE IM. ONE (14:13)
[2023-05-13 15:06] LABS: GLUCOMETER DEV NAME(LOC) BV3N.; GLUCOSE,POINT OF CARE 250 MG/DL (70-110)
[2023-05-13 17:21] LABS: GLUCOMETER DEV NAME(LOC) BV3N.; GLUCOSE,POINT OF CARE 222 MG/DL (70-110)
[2023-05-13 20:08] VITALS: BP 131/78; PULSE 105; RESP 19; TEMP 97.7; O2SAT 98
[2023-05-13 20:46] LABS: GLUCOMETER DEV NAME(LOC) BV3N.; GLUCOSE,POINT OF CARE 152 MG/DL (70-110)
[2023-05-14 06:51] LABS: GLUCOMETER DEV NAME(LOC) BV3N.; GLUCOSE,POINT OF CARE 96 MG/DL (70-110)
[2023-05-14 07:06] LABS: CLOZAPINE & NORCLOZAPINE 654 ng/mL; NORCLOZAPINE 130 ng/mL (Not Estab.)
[2023-05-14 08:00] LABS: BASOPHILS % (AUTO) 0.5 % (0.0-2.0); EOSINOPHILS % (AUTO) 1.9 % (1.0-6.0); HEMATOCRIT 41.4 % (41-53); HEMOGLOBIN 13.9 g/dL (13.5-17.5); LYMPHOCYTES # (AUTO) 2.2 K/uL (1.0-4.8); LYMPHOCYTES % (AUTO) 20.4 % (22.0-44.0); MEAN CORPUSCULAR HEMOGLOBIN 33.4 pg (26.0-34.0); MEAN CORPUSCULAR HGB CONC 33.7 G/dL (31.0-37.0); MEAN CORPUSCULAR VOLUME 99 fL (80-100); MONOCYTES # (AUTO) 1.1 K/uL (0.1-1.0); MONOCYTES % (AUTO) 10.1 % (2.0-9.0); NEUTROPHILS # (AUTO) 7.2 K/uL (1.8-7.7); NEUTROPHILS % (AUTO) 67.1 % (40.0-70.0); PLATELET COUNT (AUTO) 179 K/uL (150-450); RED BLOOD CELL COUNT(AUTO) 4.18 MIL/uL (4.50-5.90); RED CELL DISTRIBUTION WIDTH 13.1 % (11.5-14.5); WHITE BLOOD COUNT (AUTO) 10.8 K/uL (4.5-11.0)
[2023-05-14 08:28] VITALS: BP 121/86; PULSE 100; RESP 18; TEMP 98.1; O2SAT 99
[2023-05-14 11:56] LABS: GLUCOMETER DEV NAME(LOC) BV3N.; GLUCOSE,POINT OF CARE 245 MG/DL (70-110)
[2023-05-14 17:06] LABS: GLUCOMETER DEV NAME(LOC) BV3N.; GLUCOSE,POINT OF CARE 297 MG/DL (70-110)
[2023-05-14 20:17] VITALS: BP 142/62; PULSE 110; RESP 18; TEMP 97.7; O2SAT 97
[2023-05-14] MEDS: CloZAPine 100 MG TABLET PO SCH (20:41)
[2023-05-14 21:11] LABS: GLUCOMETER DEV NAME(LOC) BV3N.; GLUCOSE,POINT OF CARE 101 MG/DL (70-110)
[2023-05-15 06:42] LABS: GLUCOMETER DEV NAME(LOC) BV3N.; GLUCOSE,POINT OF CARE 160 MG/DL (70-110)
[2023-05-15 09:17] VITALS: BP 111/71; PULSE 105; RESP 16; TEMP 97.5; O2SAT 98
[2023-05-15 11:56] LABS: GLUCOMETER DEV NAME(LOC) BV3N.; GLUCOSE,POINT OF CARE 192 MG/DL (70-110)
[2023-05-15 16:21] LABS: GLUCOMETER DEV NAME(LOC) BV3N.; GLUCOSE,POINT OF CARE 216 MG/DL (70-110)
[2023-05-15 20:00] VITALS: BP 119/79; PULSE 100; RESP 16; TEMP 97.5; O2SAT 98
[2023-05-15 20:11] LABS: GLUCOMETER DEV NAME(LOC) BV3N.; GLUCOSE,POINT OF CARE 171 MG/DL (70-110)
[2023-05-16 06:21] LABS: GLUCOMETER DEV NAME(LOC) BV3N.; GLUCOSE,POINT OF CARE 117 MG/DL (70-110)
[2023-05-16 11:46] LABS: GLUCOMETER DEV NAME(LOC) BV3N.; GLUCOSE,POINT OF CARE 203 MG/DL (70-110)
[2023-05-16 14:44] VITALS: BP 118/80; PULSE 104; RESP 18; TEMP 97.5; O2SAT 97
[2023-05-16 16:36] LABS: GLUCOMETER DEV NAME(LOC) BV3N.; GLUCOSE,POINT OF CARE 268 MG/DL (70-110)
[2023-05-16 20:58] VITALS: RESP 18
[2023-05-16 21:10] LABS: GLUCOMETER DEV NAME(LOC) BV3N.; GLUCOSE,POINT OF CARE 235 MG/DL (70-110)
[2023-05-17 06:26] LABS: GLUCOMETER DEV NAME(LOC) BV3N.; GLUCOSE,POINT OF CARE 123 MG/DL (70-110)
[2023-05-17 08:33] VITALS: BP 135/76; PULSE 100; RESP 18; TEMP 97; O2SAT 99
[2023-05-17 09:21] LABS: GLUCOMETER DEV NAME(LOC) BV3N.; GLUCOSE,POINT OF CARE 167 MG/DL (70-110)
[2023-05-17 12:01] LABS: GLUCOMETER DEV NAME(LOC) BV3N.; GLUCOSE,POINT OF CARE 343 MG/DL (70-110)
[2023-05-17 16:51] LABS: GLUCOMETER DEV NAME(LOC) BV3N.; GLUCOSE,POINT OF CARE 282 MG/DL (70-110)
[2023-05-17 20:07] VITALS: BP 108/75; PULSE 102; RESP 18; TEMP 98; O2SAT 96
[2023-05-17 20:36] LABS: GLUCOMETER DEV NAME(LOC) BV3N.; GLUCOSE,POINT OF CARE 145 MG/DL (70-110)
[2023-05-18 06:26] LABS: GLUCOMETER DEV NAME(LOC) BV3N.; GLUCOSE,POINT OF CARE 107 MG/DL (70-110)
[2023-05-18 08:30] VITALS: RESP 19
[2023-05-18 11:36] LABS: GLUCOMETER DEV NAME(LOC) BV3N.; GLUCOSE,POINT OF CARE 94 MG/DL (70-110)
[2023-05-18 16:46] LABS: GLUCOMETER DEV NAME(LOC) BV3N.; GLUCOSE,POINT OF CARE 270 MG/DL (70-110)
[2023-05-18 20:04] VITALS: BP 114/68; PULSE 80; RESP 18; TEMP 97.7; O2SAT 97
[2023-05-18 21:11] LABS: GLUCOMETER DEV NAME(LOC) BV3N.; GLUCOSE,POINT OF CARE 130 MG/DL (70-110)
[2023-05-19 06:26] LABS: GLUCOMETER DEV NAME(LOC) BV3N.; GLUCOSE,POINT OF CARE 111 MG/DL (70-110)
[2023-05-19 08:30] VITALS: BP 127/67; PULSE 100; RESP 18; TEMP 97.9; O2SAT 97
[2023-05-19 11:47] LABS: GLUCOMETER DEV NAME(LOC) BV3N.; GLUCOSE,POINT OF CARE 421 MG/DL (70-110)
[2023-05-19 17:06] LABS: GLUCOMETER DEV NAME(LOC) BV3N.; GLUCOSE,POINT OF CARE 295 MG/DL (70-110)
[2023-05-19 20:04] VITALS: BP 123/77; PULSE 107; RESP 18; TEMP 97.7; O2SAT 97
[2023-05-19 20:30] LABS: GLUCOMETER DEV NAME(LOC) BV3N.; GLUCOSE,POINT OF CARE 132 MG/DL (70-110)
[2023-05-20 08:25] VITALS: BP 140/66; PULSE 100; RESP 18; TEMP 97.3; O2SAT 98
[2023-05-20 09:06] LABS: GLUCOMETER DEV NAME(LOC) BV3N.; GLUCOSE,POINT OF CARE 178 MG/DL (70-110)
[2023-05-20 11:06] LABS: GLUCOMETER DEV NAME(LOC) BV3N.; GLUCOSE,POINT OF CARE 195 MG/DL (70-110)
[2023-05-20 16:11] LABS: GLUCOMETER DEV NAME(LOC) BV3N.; GLUCOSE,POINT OF CARE 271 MG/DL (70-110)
[2023-05-20 20:10] VITALS: BP 114/70; PULSE 104; RESP 16; TEMP 97.7; O2SAT 98
[2023-05-20 20:31] LABS: GLUCOMETER DEV NAME(LOC) BV3N.; GLUCOSE,POINT OF CARE 163 MG/DL (70-110)
[2023-05-21 06:31] LABS: GLUCOMETER DEV NAME(LOC) BV3N.; GLUCOSE,POINT OF CARE 92 MG/DL (70-110)
[2023-05-21 07:57] LABS: BASOPHILS % (AUTO) 0.7 % (0.0-2.0); EOSINOPHILS % (AUTO) 2.3 % (1.0-6.0); HEMATOCRIT 39.6 % (41-53); HEMOGLOBIN 13.2 g/dL (13.5-17.5); LYMPHOCYTES # (AUTO) 1.9 K/uL (1.0-4.8); LYMPHOCYTES % (AUTO) 27.9 % (22.0-44.0); MEAN CORPUSCULAR HEMOGLOBIN 33.1 pg (26.0-34.0); MEAN CORPUSCULAR HGB CONC 33.3 G/dL (31.0-37.0); MEAN CORPUSCULAR VOLUME 99 fL (80-100); MONOCYTES # (AUTO) 0.8 K/uL (0.1-1.0); MONOCYTES % (AUTO) 11.3 % (2.0-9.0); NEUTROPHILS % (AUTO) 57.8 % (40.0-70.0); PLATELET COUNT (AUTO) 157 K/uL (150-450); RED BLOOD CELL COUNT(AUTO) 3.99 MIL/uL (4.50-5.90); RED CELL DISTRIBUTION WIDTH 12.9 % (11.5-14.5)
[2023-05-21 08:16] VITALS: BP 113/78; PULSE 100; RESP 17; TEMP 97.7; O2SAT 99
[2023-05-21 11:36] LABS: GLUCOMETER DEV NAME(LOC) BV3N.; GLUCOSE,POINT OF CARE 269 MG/DL (70-110)
[2023-05-21 17:31] LABS: GLUCOMETER DEV NAME(LOC) BV3N.; GLUCOSE,POINT OF CARE 250 MG/DL (70-110)
[2023-05-21 20:19] VITALS: RESP 20; TEMP 97.9
[2023-05-21 20:31] LABS: GLUCOMETER DEV NAME(LOC) BV3N.; GLUCOSE,POINT OF CARE 147 MG/DL (70-110)
[2023-05-22 06:31] LABS: GLUCOMETER DEV NAME(LOC) BV3N.; GLUCOSE,POINT OF CARE 102 MG/DL (70-110)
[2023-05-22 08:42] VITALS: RESP 18
[2023-05-22 11:56] LABS: GLUCOMETER DEV NAME(LOC) BV3N.; GLUCOSE,POINT OF CARE 193 MG/DL (70-110)
[2023-05-22 16:51] LABS: GLUCOMETER DEV NAME(LOC) BV3N.; GLUCOSE,POINT OF CARE 312 MG/DL (70-110)
[2023-05-22 20:04] VITALS: BP 125/75; PULSE 110; RESP 20; TEMP 97.8; O2SAT 100
[2023-05-22 22:02] LABS: GLUCOMETER DEV NAME(LOC) BV3N.; GLUCOSE,POINT OF CARE 123 MG/DL (70-110)
[2023-05-23 06:27] LABS: GLUCOMETER DEV NAME(LOC) BV3N.; GLUCOSE,POINT OF CARE 105 MG/DL (70-110)
[2023-05-23 08:23] VITALS: BP 141/66; PULSE 100; RESP 17; TEMP 97.8; O2SAT 98
[2023-05-23 11:56] LABS: GLUCOMETER DEV NAME(LOC) BV3N.; GLUCOSE,POINT OF CARE 135 MG/DL (70-110)
[2023-05-23 17:11] LABS: GLUCOMETER DEV NAME(LOC) BV3N.; GLUCOSE,POINT OF CARE 254 MG/DL (70-110)
[2023-05-23 20:32] VITALS: RESP 18
[2023-05-23 21:21] LABS: GLUCOMETER DEV NAME(LOC) BV3N.; GLUCOSE,POINT OF CARE 109 MG/DL (70-110)
[2023-05-24 06:32] LABS: GLUCOMETER DEV NAME(LOC) BV3N.; GLUCOSE,POINT OF CARE 94 MG/DL (70-110)
[2023-05-24 08:19] VITALS: BP 144/69; PULSE 100; RESP 20; TEMP 97.2; O2SAT 98
[2023-05-24 09:26] LABS: GLUCOMETER DEV NAME(LOC) BV3N.; GLUCOSE,POINT OF CARE 279 MG/DL (70-110)
[2023-05-24 11:41] LABS: GLUCOMETER DEV NAME(LOC) BV3N.; GLUCOSE,POINT OF CARE 129 MG/DL (70-110)
[2023-05-24 20:05] VITALS: BP 130/78; PULSE 104; RESP 19; TEMP 97.8; O2SAT 97
[2023-05-24 20:26] LABS: GLUCOMETER DEV NAME(LOC) BV3N.; GLUCOSE,POINT OF CARE 156 MG/DL (70-110)
[2023-05-24 20:26] LABS: GLUCOMETER DEV NAME(LOC) BV3N.; GLUCOSE,POINT OF CARE 292 MG/DL (70-110)
[2023-05-25 06:36] LABS: GLUCOMETER DEV NAME(LOC) BV3N.; GLUCOSE,POINT OF CARE 117 MG/DL (70-110)
[2023-05-25 10:15] VITALS: BP 133/74; PULSE 96; RESP 17; TEMP 97.5; O2SAT 98
[2023-05-25 11:16] LABS: GLUCOMETER DEV NAME(LOC) BV3N.; GLUCOSE,POINT OF CARE 127 MG/DL (70-110)
[2023-05-25 17:06] LABS: GLUCOMETER DEV NAME(LOC) BV3N.; GLUCOSE,POINT OF CARE 167 MG/DL (70-110)
[2023-05-25 20:29] VITALS: BP 138/87; PULSE 96; RESP 18; TEMP 97.3; O2SAT 100
[2023-05-25 20:47] LABS: GLUCOMETER DEV NAME(LOC) BV3N.; GLUCOSE,POINT OF CARE 111 MG/DL (70-110)
[2023-05-26 06:21] LABS: GLUCOMETER DEV NAME(LOC) BV3N.; GLUCOSE,POINT OF CARE 114 MG/DL (70-110)
[2023-05-26 08:09] VITALS: BP 127/73; PULSE 102; RESP 18; TEMP 97.5; O2SAT 98
[2023-05-26 11:36] LABS: GLUCOMETER DEV NAME(LOC) BV3N.; GLUCOSE,POINT OF CARE 141 MG/DL (70-110)
[2023-05-26 16:36] LABS: GLUCOMETER DEV NAME(LOC) BV3N.; GLUCOSE,POINT OF CARE 254 MG/DL (70-110)
[2023-05-26 20:26] LABS: GLUCOMETER DEV NAME(LOC) BV3N.; GLUCOSE,POINT OF CARE 204 MG/DL (70-110)
[2023-05-26 21:04] VITALS: RESP 18
[2023-05-27 06:26] LABS: GLUCOMETER DEV NAME(LOC) BV3N.; GLUCOSE,POINT OF CARE 136 MG/DL (70-110)
[2023-05-27 08:32] VITALS: BP 133/89; PULSE 100; RESP 17; TEMP 97.5; O2SAT 98
[2023-05-27 12:01] LABS: GLUCOMETER DEV NAME(LOC) BV3N.; GLUCOSE,POINT OF CARE 214 MG/DL (70-110)
[2023-05-27 17:46] LABS: GLUCOMETER DEV NAME(LOC) BV3N.; GLUCOSE,POINT OF CARE 240 MG/DL (70-110)
[2023-05-27 20:01] VITALS: BP 130/79; PULSE 108; RESP 19; TEMP 97.8; O2SAT 98
[2023-05-27 20:56] LABS: GLUCOMETER DEV NAME(LOC) BV3N.; GLUCOSE,POINT OF CARE 159 MG/DL (70-110)
[2023-05-28 06:31] LABS: GLUCOMETER DEV NAME(LOC) BV3N.; GLUCOSE,POINT OF CARE 119 MG/DL (70-110)
[2023-05-28 06:32] LABS: GLUCOMETER DEV NAME(LOC) BV3N.; GLUCOSE,POINT OF CARE 85 MG/DL (70-110)
[2023-05-28 07:38] LABS: BASOPHILS % (AUTO) 0.7 % (0.0-2.0); EOSINOPHILS % (AUTO) 3.3 % (1.0-6.0); HEMATOCRIT 41.2 % (41-53); HEMOGLOBIN 13.9 g/dL (13.5-17.5); LYMPHOCYTES # (AUTO) 2.4 K/uL (1.0-4.8); LYMPHOCYTES % (AUTO) 37.8 % (22.0-44.0); MEAN CORPUSCULAR HEMOGLOBIN 33.5 pg (26.0-34.0); MEAN CORPUSCULAR HGB CONC 33.8 G/dL (31.0-37.0); MEAN CORPUSCULAR VOLUME 99 fL (80-100); MONOCYTES # (AUTO) 0.6 K/uL (0.1-1.0); MONOCYTES % (AUTO) 9.5 % (2.0-9.0); NEUTROPHILS # (AUTO) 3.1 K/uL (1.8-7.7); NEUTROPHILS % (AUTO) 48.7 % (40.0-70.0); PLATELET COUNT (AUTO) 152 K/uL (150-450); RED BLOOD CELL COUNT(AUTO) 4.16 MIL/uL (4.50-5.90); WHITE BLOOD COUNT (AUTO) 6.3 K/uL (4.5-11.0)
[2023-05-28 08:13] LABS: HEMOGLOBIN A1C 7.4 % (3.8-5.6)
[2023-05-28 08:16] LABS: ALANINE AMINOTRANSFERASE 42 U/L (12-78); ALBUMIN 3.2 g/dL (3.4-5.0); ALKALINE PHOSPHATASE 58 U/L (46-116); ANION GAP 9 mmol/L (8-16); ASPARTATE AMINOTRANSFERASE 31 U/L (15-37); BILIRUBIN,TOTAL 0.3 mg/dL (0.1-1.0); CALCIUM, TOTAL 8.9 mg/dL (8.8-10.5); CARBON DIOXIDE 24 mmol/L (22-29); CHLORIDE 110 mmol/L (98-107); CREATININE 0.87 mg/dL (0.60-1.30); GLOMERULAR FILTR. RATE CALC > 60 mL/min (>60); GLUCOSE,RANDOM 87 mg/dL (70-110); SODIUM SERUM 143 mmol/L (136-145); TOTAL PROTEIN, SERUM 7.2 g/dL (6.4-8.2); UREA NITROGEN, BLOOD 17 mg/dL (7-18)
[2023-05-28 08:19] VITALS: BP 109/56; PULSE 99; RESP 17; TEMP 97.6; O2SAT 96
[2023-05-28 11:41] LABS: GLUCOMETER DEV NAME(LOC) BV3N.; GLUCOSE,POINT OF CARE 290 MG/DL (70-110)
[2023-05-28 12:06] LABS: CLOZAPINE & NORCLOZAPINE 798 ng/mL; NORCLOZAPINE 155 ng/mL (Not Estab.)
[2023-05-28 16:37] LABS: GLUCOMETER DEV NAME(LOC) BV3N.; GLUCOSE,POINT OF CARE 141 MG/DL (70-110)
[2023-05-28 20:04] VITALS: BP 118/66; PULSE 104; RESP 18; TEMP 97.8; O2SAT 98
[2023-05-28 23:36] LABS: GLUCOMETER DEV NAME(LOC) BV3N.; GLUCOSE,POINT OF CARE 108 MG/DL (70-110)
[2023-05-29 06:22] LABS: GLUCOMETER DEV NAME(LOC) BV3N.; GLUCOSE,POINT OF CARE 135 MG/DL (70-110)
[2023-05-29 08:17] VITALS: BP 117/77; PULSE 100; RESP 18; TEMP 97.9; O2SAT 96
[2023-05-29 12:27] LABS: GLUCOMETER DEV NAME(LOC) BV3N.; GLUCOSE,POINT OF CARE 292 MG/DL (70-110)
[2023-05-29 16:46] LABS: GLUCOMETER DEV NAME(LOC) BV3N.; GLUCOSE,POINT OF CARE 237 MG/DL (70-110)
[2023-05-29 20:01] VITALS: BP 119/76; PULSE 110; RESP 18; TEMP 98.7; O2SAT 98
[2023-05-29 20:46] LABS: GLUCOMETER DEV NAME(LOC) BV3N.; GLUCOSE,POINT OF CARE 174 MG/DL (70-110)
[2023-05-30 06:36] LABS: GLUCOMETER DEV NAME(LOC) BV3N.; GLUCOSE,POINT OF CARE 102 MG/DL (70-110)
[2023-05-30 09:07] VITALS: BP 143/89; PULSE 95; RESP 18; TEMP 98.7; O2SAT 97
[2023-05-30 23:03] VITALS: BP 128/63; PULSE 87; RESP 18; TEMP 98.2; O2SAT 97
[2023-05-30 23:36] LABS: GLUCOMETER DEV NAME(LOC) BV3N.; GLUCOSE,POINT OF CARE 107 MG/DL (70-110)
[2023-05-30 23:36] LABS: GLUCOMETER DEV NAME(LOC) BV3N.; GLUCOSE,POINT OF CARE 235 MG/DL (70-110)
[2023-05-30 23:36] LABS: GLUCOMETER DEV NAME(LOC) BV3N.; GLUCOSE,POINT OF CARE 182 MG/DL (70-110)
[2023-05-31 06:31] LABS: GLUCOMETER DEV NAME(LOC) BV3N.; GLUCOSE,POINT OF CARE 88 MG/DL (70-110)
[2023-05-31 08:34] VITALS: BP 155/76; PULSE 100; RESP 20; TEMP 97.8; O2SAT 98
[2023-05-31 12:01] LABS: GLUCOMETER DEV NAME(LOC) BV3N.; GLUCOSE,POINT OF CARE 354 MG/DL (70-110)
[2023-05-31 16:51] LABS: GLUCOMETER DEV NAME(LOC) BV3N.; GLUCOSE,POINT OF CARE 274 MG/DL (70-110)
[2023-05-31 23:46] LABS: GLUCOMETER DEV NAME(LOC) BV3N.; GLUCOSE,POINT OF CARE 85 MG/DL (70-110)
[2023-06-01 06:41] LABS: GLUCOMETER DEV NAME(LOC) BV3N.; GLUCOSE,POINT OF CARE 126 MG/DL (70-110)
[2023-06-01 08:30] VITALS: BP 118/69; PULSE 100; RESP 18; TEMP 97.5; O2SAT 96
[2023-06-01 14:06] LABS: GLUCOMETER DEV NAME(LOC) BV3N.; GLUCOSE,POINT OF CARE 176 MG/DL (70-110)
[2023-06-01 16:46] LABS: GLUCOMETER DEV NAME(LOC) BV3N.; GLUCOSE,POINT OF CARE 198 MG/DL (70-110)
[2023-06-01 21:06] LABS: GLUCOMETER DEV NAME(LOC) BV3N.; GLUCOSE,POINT OF CARE 224 MG/DL (70-110)
[2023-06-01 22:06] VITALS: RESP 18
[2023-06-02 06:21] LABS: GLUCOMETER DEV NAME(LOC) BV3N.; GLUCOSE,POINT OF CARE 117 MG/DL (70-110)
[2023-06-02 10:47] VITALS: BP 122/75; PULSE 87; RESP 18; TEMP 97.8; O2SAT 99
[2023-06-02 12:12] LABS: GLUCOMETER DEV NAME(LOC) BV3N.; GLUCOSE,POINT OF CARE 258 MG/DL (70-110)
[2023-06-02 16:56] LABS: GLUCOMETER DEV NAME(LOC) BV3N.; GLUCOSE,POINT OF CARE 123 MG/DL (70-110)
[2023-06-02 21:02] LABS: GLUCOMETER DEV NAME(LOC) BV3N.; GLUCOSE,POINT OF CARE 214 MG/DL (70-110)
[2023-06-02 23:43] VITALS: RESP 18
[2023-06-03 06:21] LABS: GLUCOMETER DEV NAME(LOC) BV3N.; GLUCOSE,POINT OF CARE 124 MG/DL (70-110)
[2023-06-03 08:13] VITALS: BP 116/72; PULSE 100; RESP 18; TEMP 97.6; O2SAT 98
[2023-06-03 10:07] LABS: LITHIUM 0.92 mmol/L (0.60-1.20)
[2023-06-03 20:10] VITALS: BP 121/71; PULSE 97; RESP 18; TEMP 98; O2SAT 100
[2023-06-03 23:46] LABS: GLUCOMETER DEV NAME(LOC) BV3N.; GLUCOSE,POINT OF CARE 169 MG/DL (70-110)
[2023-06-03 23:46] LABS: GLUCOMETER DEV NAME(LOC) BV3N.; GLUCOSE,POINT OF CARE 97 MG/DL (70-110)
[2023-06-03 23:46] LABS: GLUCOMETER DEV NAME(LOC) BV3N.; GLUCOSE,POINT OF CARE 209 MG/DL (70-110)
[2023-06-04 06:36] LABS: GLUCOMETER DEV NAME(LOC) BV3N.; GLUCOSE,POINT OF CARE 147 MG/DL (70-110)
[2023-06-04] MEDS: MAGNESIUM HYDROXIDE SUSPENSION 30 ML UDCUP PO PRN (07:08)
[2023-06-04 08:05] LABS: BASOPHILS % (AUTO) 0.7 % (0.0-2.0); EOSINOPHILS % (AUTO) 3.1 % (1.0-6.0); HEMATOCRIT 39.1 % (41-53); HEMOGLOBIN 13.4 g/dL (13.5-17.5); LYMPHOCYTES # (AUTO) 2.2 K/uL (1.0-4.8); LYMPHOCYTES % (AUTO) 33.9 % (22.0-44.0); MEAN CORPUSCULAR HEMOGLOBIN 33.9 pg (26.0-34.0); MEAN CORPUSCULAR HGB CONC 34.4 G/dL (31.0-37.0); MEAN CORPUSCULAR VOLUME 99 fL (80-100); MONOCYTES # (AUTO) 0.6 K/uL (0.1-1.0); MONOCYTES % (AUTO) 9.9 % (2.0-9.0); NEUTROPHILS # (AUTO) 3.4 K/uL (1.8-7.7); NEUTROPHILS % (AUTO) 52.4 % (40.0-70.0); PLATELET COUNT (AUTO) 157 K/uL (150-450); RED BLOOD CELL COUNT(AUTO) 3.97 MIL/uL (4.50-5.90); RED CELL DISTRIBUTION WIDTH 12.7 % (11.5-14.5); WHITE BLOOD COUNT (AUTO) 6.5 K/uL (4.5-11.0)
[2023-06-04 08:26] LABS: GLUCOMETER DEV NAME(LOC) BV3N.; GLUCOSE,POINT OF CARE 182 MG/DL (70-110)
[2023-06-04 10:00] VITALS: RESP 17
[2023-06-04] MEDS ORDERED: INSULIN LISPRO 100 UNITS/ML SQ PRN (11:45)
[2023-06-04 11:46] LABS: GLUCOMETER DEV NAME(LOC) BV3N.; GLUCOSE,POINT OF CARE 44 MG/DL (70-110)
[2023-06-04 12:01] LABS: GLUCOMETER DEV NAME(LOC) BV3N.; GLUCOSE,POINT OF CARE 75 MG/DL (70-110)
[2023-06-04] MEDS: MetFORMIN HCL 500 MG TABLET PO SCH (16:21)
[2023-06-04] MEDS: INSULIN LISPRO 100 UNITS/ML SQ PRN (16:30)
[2023-06-04 18:25] LABS: GLUCOMETER DEV NAME(LOC) BV3N.; GLUCOSE,POINT OF CARE 269 MG/DL (70-110)
[2023-06-04 20:40] LABS: GLUCOMETER DEV NAME(LOC) BV3N.; GLUCOSE,POINT OF CARE 215 MG/DL (70-110)
[2023-06-04 21:10] VITALS: RESP 18
[2023-06-05 06:16] LABS: GLUCOMETER DEV NAME(LOC) BV3N.; GLUCOSE,POINT OF CARE 230 MG/DL (70-110)
[2023-06-05 08:00] VITALS: BP 118/61; PULSE 100; RESP 16; TEMP 97.3
[2023-06-05] MEDS: INSULIN GLARGINE,HUM.REC.ANLOG 100 UNITS/ML SQ SCH (08:49)
[2023-06-05 12:16] LABS: GLUCOMETER DEV NAME(LOC) BV3N.; GLUCOSE,POINT OF CARE 198 MG/DL (70-110)
[2023-06-05 17:01] LABS: GLUCOMETER DEV NAME(LOC) BV3N.; GLUCOSE,POINT OF CARE 340 MG/DL (70-110)
[2023-06-05 20:24] VITALS: RESP 18
[2023-06-05 21:01] LABS: GLUCOMETER DEV NAME(LOC) BV3N.; GLUCOSE,POINT OF CARE 144 MG/DL (70-110)
[2023-06-06 06:46] LABS: GLUCOMETER DEV NAME(LOC) BV3N.; GLUCOSE,POINT OF CARE 137 MG/DL (70-110)
[2023-06-06 10:19] VITALS: BP 138/81; PULSE 100; RESP 17; TEMP 97.6; O2SAT 96
[2023-06-06 11:22] LABS: GLUCOMETER DEV NAME(LOC) BV3N.; GLUCOSE,POINT OF CARE 303 MG/DL (70-110)
[2023-06-06 18:01] LABS: GLUCOMETER DEV NAME(LOC) BV3N.; GLUCOSE,POINT OF CARE 337 MG/DL (70-110)
[2023-06-06 20:51] LABS: GLUCOMETER DEV NAME(LOC) BV3N.; GLUCOSE,POINT OF CARE 377 MG/DL (70-110)
[2023-06-07 05:12] VITALS: RESP 18
[2023-06-07 07:06] LABS: GLUCOMETER DEV NAME(LOC) BV3N.; GLUCOSE,POINT OF CARE 123 MG/DL (70-110)
[2023-06-07 08:00] VITALS: BP 108/66; PULSE 118; RESP 18; TEMP 98.6; O2SAT 98
[2023-06-07 10:30] VITALS: PULSE 102
[2023-06-07 12:26] LABS: GLUCOMETER DEV NAME(LOC) BV3N.; GLUCOSE,POINT OF CARE 399 MG/DL (70-110)
[2023-06-07] MEDS ORDERED: INSULIN LISPRO 100 UNITS/ML SQ PRN ×2 (16:30→16:45)
[2023-06-07] MEDS: INSULIN LISPRO 100 UNITS/ML SQ ONE (16:45)
[2023-06-07 17:31] LABS: GLUCOMETER DEV NAME(LOC) BV3N.; GLUCOSE,POINT OF CARE 419 MG/DL (70-110)
[2023-06-07 20:12] VITALS: BP 140/71; PULSE 111; RESP 18; TEMP 97.8; O2SAT 97
[2023-06-07] MEDS: CloZAPine 100 MG TABLET PO SCH (21:01)
[2023-06-07] MEDS: INSULIN LISPRO 100 UNITS/ML SQ PRN (21:12)
[2023-06-07 21:26] LABS: GLUCOMETER DEV NAME(LOC) BV3N.; GLUCOSE,POINT OF CARE 212 MG/DL (70-110)
[2023-06-08] MEDS: MetFORMIN HCL 500 MG TABLET PO SCH (06:43)
[2023-06-08 06:51] LABS: GLUCOMETER DEV NAME(LOC) BV3N.; GLUCOSE,POINT OF CARE 149 MG/DL (70-110)
[2023-06-08] MEDS: INSULIN GLARGINE,HUM.REC.ANLOG 100 UNITS/ML SQ SCH (08:25)
[2023-06-08 12:27] LABS: GLUCOMETER DEV NAME(LOC) BV3N.; GLUCOSE,POINT OF CARE 248 MG/DL (70-110)
[2023-06-08 16:26] LABS: GLUCOMETER DEV NAME(LOC) BV3N.; GLUCOSE,POINT OF CARE 212 MG/DL (70-110)
[2023-06-08 20:41] LABS: GLUCOMETER DEV NAME(LOC) BV3N.; GLUCOSE,POINT OF CARE 296 MG/DL (70-110)
[2023-06-08 20:49] VITALS: BP 107/68; PULSE 68; RESP 16; TEMP 98; O2SAT 100
[2023-06-09 05:46] LABS: GLUCOMETER DEV NAME(LOC) BV3N.; GLUCOSE,POINT OF CARE 147 MG/DL (70-110)
[2023-06-09 08:27] VITALS: BP 124/78; PULSE 90; RESP 17; TEMP 97.7; O2SAT 97
[2023-06-09 11:41] LABS: GLUCOMETER DEV NAME(LOC) BV3N.; GLUCOSE,POINT OF CARE 196 MG/DL (70-110)
[2023-06-09 16:51] LABS: GLUCOMETER DEV NAME(LOC) BV3N.; GLUCOSE,POINT OF CARE 293 MG/DL (70-110)
[2023-06-09 20:46] LABS: GLUCOMETER DEV NAME(LOC) BV3N.; GLUCOSE,POINT OF CARE 286 MG/DL (70-110)
[2023-06-09 23:25] VITALS: RESP 18
[2023-06-10 06:26] LABS: GLUCOMETER DEV NAME(LOC) BV3N.; GLUCOSE,POINT OF CARE 129 MG/DL (70-110)
[2023-06-10 08:19] VITALS: BP 100/73; PULSE 100; RESP 18; TEMP 98.2; O2SAT 98
[2023-06-10 11:31] LABS: GLUCOMETER DEV NAME(LOC) BV3N.; GLUCOSE,POINT OF CARE 299 MG/DL (70-110)
[2023-06-10 17:06] LABS: GLUCOMETER DEV NAME(LOC) BV3N.; GLUCOSE,POINT OF CARE 341 MG/DL (70-110)
[2023-06-10 20:32] LABS: GLUCOMETER DEV NAME(LOC) BV3N.; GLUCOSE,POINT OF CARE 215 MG/DL (70-110)
[2023-06-10 21:14] VITALS: RESP 18
[2023-06-11 07:01] LABS: GLUCOMETER DEV NAME(LOC) BV3N.; GLUCOSE,POINT OF CARE 167 MG/DL (70-110)
[2023-06-11 08:05] LABS: BASOPHILS % (AUTO) 0.7 % (0.0-2.0); EOSINOPHILS % (AUTO) 3.3 % (1.0-6.0); HEMATOCRIT 39.4 % (41-53); HEMOGLOBIN 13.4 g/dL (13.5-17.5); LYMPHOCYTES # (AUTO) 2.2 K/uL (1.0-4.8); LYMPHOCYTES % (AUTO) 34.2 % (22.0-44.0); MEAN CORPUSCULAR HEMOGLOBIN 33.7 pg (26.0-34.0); MEAN CORPUSCULAR HGB CONC 34.1 G/dL (31.0-37.0); MEAN CORPUSCULAR VOLUME 99 fL (80-100); MONOCYTES # (AUTO) 0.6 K/uL (0.1-1.0); MONOCYTES % (AUTO) 9.8 % (2.0-9.0); NEUTROPHILS # (AUTO) 3.3 K/uL (1.8-7.7); PLATELET COUNT (AUTO) 142 K/uL (150-450); RED BLOOD CELL COUNT(AUTO) 3.99 MIL/uL (4.50-5.90); RED CELL DISTRIBUTION WIDTH 12.7 % (11.5-14.5); WHITE BLOOD COUNT (AUTO) 6.4 K/uL (4.5-11.0)
[2023-06-11 11:52] LABS: GLUCOMETER DEV NAME(LOC) BV3N.; GLUCOSE,POINT OF CARE 216 MG/DL (70-110)
[2023-06-11 13:47] VITALS: BP 131/86; PULSE 104; RESP 18; TEMP 96.9; O2SAT 99
[2023-06-11 17:02] LABS: GLUCOMETER DEV NAME(LOC) BV3N.; GLUCOSE,POINT OF CARE 286 MG/DL (70-110)
[2023-06-11 20:46] LABS: GLUCOMETER DEV NAME(LOC) BV3N.; GLUCOSE,POINT OF CARE 272 MG/DL (70-110)
[2023-06-11 20:50] VITALS: RESP 18
[2023-06-12 06:56] LABS: GLUCOMETER DEV NAME(LOC) BV3N.; GLUCOSE,POINT OF CARE 121 MG/DL (70-110)
[2023-06-12 10:22] VITALS: BP 129/79; PULSE 89; RESP 18; TEMP 97.9; O2SAT 100
[2023-06-12 11:51] LABS: GLUCOMETER DEV NAME(LOC) BV3N.; GLUCOSE,POINT OF CARE 281 MG/DL (70-110)
[2023-06-12 16:31] LABS: GLUCOMETER DEV NAME(LOC) BV3N.; GLUCOSE,POINT OF CARE 331 MG/DL (70-110)
[2023-06-12 20:21] LABS: GLUCOMETER DEV NAME(LOC) BV3N.; GLUCOSE,POINT OF CARE 256 MG/DL (70-110)
[2023-06-12 23:45] VITALS: RESP 18
[2023-06-13 06:31] LABS: GLUCOMETER DEV NAME(LOC) BV3N.; GLUCOSE,POINT OF CARE 196 MG/DL (70-110)
[2023-06-13 12:41] LABS: GLUCOMETER DEV NAME(LOC) BV3N.; GLUCOSE,POINT OF CARE 259 MG/DL (70-110)
[2023-06-13 17:01] LABS: GLUCOMETER DEV NAME(LOC) BV3N.; GLUCOSE,POINT OF CARE 259 MG/DL (70-110)
[2023-06-13 20:36] LABS: GLUCOMETER DEV NAME(LOC) BV3N.; GLUCOSE,POINT OF CARE 334 MG/DL (70-110)
[2023-06-13 21:27] VITALS: BP 127/78; PULSE 89; RESP 18; TEMP 98.2; O2SAT 97
[2023-06-14 06:21] LABS: GLUCOMETER DEV NAME(LOC) BV3N.; GLUCOSE,POINT OF CARE 120 MG/DL (70-110)
[2023-06-14 09:52] VITALS: BP 133/80; PULSE 80; RESP 18; TEMP 98; O2SAT 97
[2023-06-14 11:46] LABS: GLUCOMETER DEV NAME(LOC) BV3N.; GLUCOSE,POINT OF CARE 351 MG/DL (70-110)
[2023-06-14 16:36] LABS: GLUCOMETER DEV NAME(LOC) BV3N.; GLUCOSE,POINT OF CARE 314 MG/DL (70-110)
[2023-06-14 20:51] VITALS: RESP 18
[2023-06-14 20:51] LABS: GLUCOMETER DEV NAME(LOC) BV3N.; GLUCOSE,POINT OF CARE 273 MG/DL (70-110)
[2023-06-14] MEDS: QUEtiapine FUMARATE 200 MG TABLET PO SCH (20:54)
[2023-06-14] MEDS: ESZOPICLONE 3 MG TABLET PO SCH (20:55)
[2023-06-15 06:41] LABS: GLUCOMETER DEV NAME(LOC) BV3N.; GLUCOSE,POINT OF CARE 143 MG/DL (70-110)
[2023-06-15 08:03] VITALS: BP 122/67; PULSE 107; RESP 20; TEMP 98; O2SAT 97
[2023-06-15 11:51] LABS: GLUCOMETER DEV NAME(LOC) BV3N.; GLUCOSE,POINT OF CARE 320 MG/DL (70-110)
[2023-06-15 16:36] LABS: GLUCOMETER DEV NAME(LOC) BV3N.; GLUCOSE,POINT OF CARE 280 MG/DL (70-110)
[2023-06-15 20:15] VITALS: BP 132/90; PULSE 97; RESP 18; TEMP 97.9; O2SAT 98
[2023-06-15 20:41] LABS: GLUCOMETER DEV NAME(LOC) BV3N.; GLUCOSE,POINT OF CARE 299 MG/DL (70-110)
[2023-06-15] MEDS: QUEtiapine FUMARATE 200 MG TABLET PO SCH (20:47)
[2023-06-16 06:21] LABS: GLUCOMETER DEV NAME(LOC) BV3N.; GLUCOSE,POINT OF CARE 117 MG/DL (70-110)
[2023-06-16 08:29] VITALS: BP 127/78; PULSE 105; RESP 18; TEMP 97.9; O2SAT 98
[2023-06-16 11:46] LABS: GLUCOMETER DEV NAME(LOC) BV3N.; GLUCOSE,POINT OF CARE 341 MG/DL (70-110)
[2023-06-16 17:16] LABS: GLUCOMETER DEV NAME(LOC) BV3N.; GLUCOSE,POINT OF CARE 235 MG/DL (70-110)
[2023-06-16 20:26] LABS: GLUCOMETER DEV NAME(LOC) BV3N.; GLUCOSE,POINT OF CARE 211 MG/DL (70-110)
[2023-06-16 21:36] VITALS: RESP 18
[2023-06-17 06:26] LABS: GLUCOMETER DEV NAME(LOC) BV3N.; GLUCOSE,POINT OF CARE 143 MG/DL (70-110)
[2023-06-17 08:01] VITALS: RESP 16
[2023-06-17 11:51] LABS: GLUCOMETER DEV NAME(LOC) BV3N.; GLUCOSE,POINT OF CARE 306 MG/DL (70-110)
[2023-06-17 16:36] LABS: GLUCOMETER DEV NAME(LOC) BV3N.; GLUCOSE,POINT OF CARE 218 MG/DL (70-110)
[2023-06-17] MEDS: QUEtiapine FUMARATE 200 MG TABLET PO PRN (20:11)
[2023-06-17] MEDS: QUEtiapine FUMARATE 300 MG TABLET PO SCH (20:23)
[2023-06-17 20:33] VITALS: BP 121/65; PULSE 92; RESP 16; TEMP 98; O2SAT 96
[2023-06-17 21:11] LABS: GLUCOMETER DEV NAME(LOC) BV3N.; GLUCOSE,POINT OF CARE 285 MG/DL (70-110)
[2023-06-18 06:46] LABS: GLUCOMETER DEV NAME(LOC) BV3N.; GLUCOSE,POINT OF CARE 114 MG/DL (70-110)
[2023-06-18 08:00] VITALS: BP 126/76; PULSE 89; RESP 18; TEMP 97.9; O2SAT 99
[2023-06-18 12:11] LABS: GLUCOMETER DEV NAME(LOC) BV3N.; GLUCOSE,POINT OF CARE 261 MG/DL (70-110)
[2023-06-18 16:51] LABS: GLUCOMETER DEV NAME(LOC) BV3N.; GLUCOSE,POINT OF CARE 334 MG/DL (70-110)
[2023-06-18 20:36] LABS: GLUCOMETER DEV NAME(LOC) BV3N.; GLUCOSE,POINT OF CARE 289 MG/DL (70-110)
[2023-06-19 00:13] VITALS: BP 131/73; PULSE 71; RESP 18; TEMP 97.8; O2SAT 98
[2023-06-19 06:41] LABS: GLUCOMETER DEV NAME(LOC) BV3N.; GLUCOSE,POINT OF CARE 178 MG/DL (70-110)
[2023-06-19 08:12] VITALS: RESP 18
[2023-06-19 08:22] LABS: BASOPHILS % (AUTO) 0.6 % (0.0-2.0); EOSINOPHILS % (AUTO) 2.6 % (1.0-6.0); HEMATOCRIT 41.8 % (41-53); HEMOGLOBIN 13.9 g/dL (13.5-17.5); LYMPHOCYTES # (AUTO) 2.3 K/uL (1.0-4.8); LYMPHOCYTES % (AUTO) 28.1 % (22.0-44.0); MEAN CORPUSCULAR HEMOGLOBIN 32.9 pg (26.0-34.0); MEAN CORPUSCULAR HGB CONC 33.4 G/dL (31.0-37.0); MEAN CORPUSCULAR VOLUME 99 fL (80-100); MONOCYTES # (AUTO) 0.8 K/uL (0.1-1.0); MONOCYTES % (AUTO) 9.9 % (2.0-9.0); NEUTROPHILS # (AUTO) 4.7 K/uL (1.8-7.7); NEUTROPHILS % (AUTO) 58.8 % (40.0-70.0); PLATELET COUNT (AUTO) 150 K/uL (150-450); RED BLOOD CELL COUNT(AUTO) 4.23 MIL/uL (4.50-5.90); RED CELL DISTRIBUTION WIDTH 13.1 % (11.5-14.5)
[2023-06-19 12:26] LABS: GLUCOMETER DEV NAME(LOC) BV3N.; GLUCOSE,POINT OF CARE 225 MG/DL (70-110)
[2023-06-19 17:11] LABS: GLUCOMETER DEV NAME(LOC) BV3N.; GLUCOSE,POINT OF CARE 309 MG/DL (70-110)
[2023-06-19 20:31] LABS: GLUCOMETER DEV NAME(LOC) BV3N.; GLUCOSE,POINT OF CARE 258 MG/DL (70-110)
[2023-06-20 03:27] VITALS: BP 133/77; PULSE 77; RESP 17; TEMP 97.8
[2023-06-20 06:51] LABS: GLUCOMETER DEV NAME(LOC) BV3N.; GLUCOSE,POINT OF CARE 144 MG/DL (70-110)
[2023-06-20 08:35] VITALS: BP 109/59; PULSE 110; RESP 16; TEMP 97.5; O2SAT 96
[2023-06-20 08:36] VITALS: BP 109/59; PULSE 110; RESP 16; TEMP 97.5
[2023-06-20 11:21] LABS: GLUCOMETER DEV NAME(LOC) BV3N.; GLUCOSE,POINT OF CARE 228 MG/DL (70-110)
[2023-06-20 17:51] LABS: GLUCOMETER DEV NAME(LOC) BV3N.; GLUCOSE,POINT OF CARE 344 MG/DL (70-110)
[2023-06-20 20:37] VITALS: BP 110/68; PULSE 86; RESP 17; TEMP 98; O2SAT 96
[2023-06-20 21:11] LABS: GLUCOMETER DEV NAME(LOC) BV3N.; GLUCOSE,POINT OF CARE 246 MG/DL (70-110)
[2023-06-21 06:36] LABS: GLUCOMETER DEV NAME(LOC) BV3N.; GLUCOSE,POINT OF CARE 107 MG/DL (70-110)
[2023-06-21 08:31] VITALS: RESP 17
[2023-06-21 11:41] LABS: GLUCOMETER DEV NAME(LOC) BV3N.; GLUCOSE,POINT OF CARE 292 MG/DL (70-110)
[2023-06-21 17:16] LABS: GLUCOMETER DEV NAME(LOC) BV3N.; GLUCOSE,POINT OF CARE 198 MG/DL (70-110)
[2023-06-21 21:26] LABS: GLUCOMETER DEV NAME(LOC) BV3N.; GLUCOSE,POINT OF CARE 333 MG/DL (70-110)
[2023-06-21 22:43] VITALS: BP 101/65; PULSE 91; RESP 18; TEMP 97.8; O2SAT 96
[2023-06-22 06:21] LABS: GLUCOMETER DEV NAME(LOC) BV3N.; GLUCOSE,POINT OF CARE 116 MG/DL (70-110)
[2023-06-22 08:13] VITALS: BP 109/69; PULSE 98; RESP 17; TEMP 96.9; O2SAT 98
[2023-06-22 11:46] LABS: GLUCOMETER DEV NAME(LOC) BV3N.; GLUCOSE,POINT OF CARE 489 MG/DL (70-110)
[2023-06-22 16:56] LABS: GLUCOMETER DEV NAME(LOC) BV3N.; GLUCOSE,POINT OF CARE 270 MG/DL (70-110)
[2023-06-22 20:09] VITALS: BP 136/80; PULSE 77; RESP 18; TEMP 97.5
[2023-06-22 20:21] LABS: GLUCOMETER DEV NAME(LOC) BV3N.; GLUCOSE,POINT OF CARE 248 MG/DL (70-110)
[2023-06-23 06:41] LABS: GLUCOMETER DEV NAME(LOC) BV3N.; GLUCOSE,POINT OF CARE 123 MG/DL (70-110)
[2023-06-23 08:15] VITALS: BP 100/64; PULSE 100; RESP 18; TEMP 98.2; O2SAT 99
[2023-06-23 11:07] LABS: CLOZAPINE & NORCLOZAPINE 508 ng/mL; NORCLOZAPINE 125 ng/mL (Not Estab.)
[2023-06-23 11:51] LABS: GLUCOMETER DEV NAME(LOC) BV3N.; GLUCOSE,POINT OF CARE 343 MG/DL (70-110)
[2023-06-23 17:11] LABS: GLUCOMETER DEV NAME(LOC) BV3N.; GLUCOSE,POINT OF CARE 321 MG/DL (70-110)
[2023-06-23 21:46] LABS: GLUCOMETER DEV NAME(LOC) BV3N.; GLUCOSE,POINT OF CARE 409 MG/DL (70-110)
[2023-06-23 23:24] VITALS: BP 136/81; PULSE 97; RESP 18; TEMP 97.6; O2SAT 97
[2023-06-24 06:11] LABS: GLUCOMETER DEV NAME(LOC) BV3N.; GLUCOSE,POINT OF CARE 108 MG/DL (70-110)
[2023-06-24 09:04] VITALS: BP 116/75; PULSE 96; RESP 17; TEMP 98.7; O2SAT 99
[2023-06-24 11:46] LABS: GLUCOMETER DEV NAME(LOC) BV3N.; GLUCOSE,POINT OF CARE 195 MG/DL (70-110)
[2023-06-24 17:06] LABS: GLUCOMETER DEV NAME(LOC) BV3N.; GLUCOSE,POINT OF CARE 230 MG/DL (70-110)
[2023-06-24 20:31] LABS: GLUCOMETER DEV NAME(LOC) BV3N.; GLUCOSE,POINT OF CARE 310 MG/DL (70-110)
[2023-06-24 23:45] VITALS: BP 111/77; PULSE 88; RESP 18; TEMP 97.7; O2SAT 98
[2023-06-25 06:36] LABS: GLUCOMETER DEV NAME(LOC) BV3N.; GLUCOSE,POINT OF CARE 125 MG/DL (70-110)
[2023-06-25 09:07] VITALS: BP 110/68; PULSE 82; RESP 17; TEMP 98; O2SAT 97
[2023-06-25 11:57] LABS: GLUCOMETER DEV NAME(LOC) BV3N.; GLUCOSE,POINT OF CARE 175 MG/DL (70-110)
[2023-06-25 17:32] LABS: GLUCOMETER DEV NAME(LOC) BV3N.; GLUCOSE,POINT OF CARE 232 MG/DL (70-110)
[2023-06-25 20:26] LABS: GLUCOMETER DEV NAME(LOC) BV3N.; GLUCOSE,POINT OF CARE 164 MG/DL (70-110)
[2023-06-25 23:27] VITALS: BP 117/78; PULSE 86; RESP 17; TEMP 98.3; O2SAT 97
[2023-06-26 07:00] LABS: GLUCOMETER DEV NAME(LOC) BV3N.; GLUCOSE,POINT OF CARE 104 MG/DL (70-110)
[2023-06-26 08:40] VITALS: BP 118/68; PULSE 100; RESP 16; TEMP 98; O2SAT 96
[2023-06-26 12:21] LABS: GLUCOMETER DEV NAME(LOC) BV3N.; GLUCOSE,POINT OF CARE 223 MG/DL (70-110)
[2023-06-26 17:21] LABS: GLUCOMETER DEV NAME(LOC) BV3N.; GLUCOSE,POINT OF CARE 166 MG/DL (70-110)
[2023-06-26 20:00] VITALS: BP 119/69; PULSE 110; RESP 18; TEMP 98.4; O2SAT 97
[2023-06-26 20:51] LABS: GLUCOMETER DEV NAME(LOC) BV3N.; GLUCOSE,POINT OF CARE 441 MG/DL (70-110)
[2023-06-27 06:36] LABS: GLUCOMETER DEV NAME(LOC) BV3N.; GLUCOSE,POINT OF CARE 174 MG/DL (70-110)
[2023-06-27 09:24] VITALS: BP 105/75; PULSE 84; RESP 18; TEMP 98.2; O2SAT 97
[2023-06-27 11:41] LABS: GLUCOMETER DEV NAME(LOC) BV3N.; GLUCOSE,POINT OF CARE 163 MG/DL (70-110)
[2023-06-27 16:51] LABS: GLUCOMETER DEV NAME(LOC) BV3N.; GLUCOSE,POINT OF CARE 267 MG/DL (70-110)
[2023-06-27 20:00] VITALS: BP 111/74; PULSE 109; RESP 18; TEMP 98.1; O2SAT 98
[2023-06-27 20:51] LABS: GLUCOMETER DEV NAME(LOC) BV3N.; GLUCOSE,POINT OF CARE 229 MG/DL (70-110)
[2023-06-28 06:32] LABS: GLUCOMETER DEV NAME(LOC) BV3N.; GLUCOSE,POINT OF CARE 97 MG/DL (70-110)
[2023-06-28 08:10] VITALS: BP 113/71; PULSE 99; RESP 18; TEMP 97.7; O2SAT 96
[2023-06-28 11:56] LABS: GLUCOMETER DEV NAME(LOC) BV3N.; GLUCOSE,POINT OF CARE 280 MG/DL (70-110)
[2023-06-28 12:47] VITALS: BP 121/74; PULSE 76; RESP 18; TEMP 97.5; O2SAT 96
[2023-06-28 17:26] LABS: GLUCOMETER DEV NAME(LOC) BV3N.; GLUCOSE,POINT OF CARE 310 MG/DL (70-110)
[2023-06-28] MEDS: CloZAPine 100 MG TABLET PO SCH (20:36)
[2023-06-28 20:38] VITALS: BP 125/69; PULSE 96; RESP 18; TEMP 97.9; O2SAT 95
[2023-06-28 20:56] LABS: GLUCOMETER DEV NAME(LOC) BV3N.; GLUCOSE,POINT OF CARE 249 MG/DL (70-110)
[2023-06-29 06:51] LABS: GLUCOMETER DEV NAME(LOC) BV3N.; GLUCOSE,POINT OF CARE 87 MG/DL (70-110)
[2023-06-29 08:53] LABS: BASOPHILS % (AUTO) 0.6 % (0.0-2.0); EOSINOPHILS % (AUTO) 3.4 % (1.0-6.0); HEMATOCRIT 39.8 % (41-53); HEMOGLOBIN 13.6 g/dL (13.5-17.5); LYMPHOCYTES # (AUTO) 1.8 K/uL (1.0-4.8); MEAN CORPUSCULAR HEMOGLOBIN 33.6 pg (26.0-34.0); MEAN CORPUSCULAR HGB CONC 34.2 G/dL (31.0-37.0); MEAN CORPUSCULAR VOLUME 98 fL (80-100); MONOCYTES # (AUTO) 0.8 K/uL (0.1-1.0); MONOCYTES % (AUTO) 11.5 % (2.0-9.0); NEUTROPHILS # (AUTO) 3.8 K/uL (1.8-7.7); NEUTROPHILS % (AUTO) 57.5 % (40.0-70.0); PLATELET COUNT (AUTO) 159 K/uL (150-450); RED BLOOD CELL COUNT(AUTO) 4.06 MIL/uL (4.50-5.90); RED CELL DISTRIBUTION WIDTH 12.5 % (11.5-14.5); WHITE BLOOD COUNT (AUTO) 6.6 K/uL (4.5-11.0)
[2023-06-29 09:02] VITALS: BP 128/78; PULSE 100; RESP 18; TEMP 97.6; O2SAT 98
[2023-06-29 11:46] LABS: GLUCOMETER DEV NAME(LOC) BV3N.; GLUCOSE,POINT OF CARE 198 MG/DL (70-110)
[2023-06-29 17:22] LABS: GLUCOMETER DEV NAME(LOC) BV3N.; GLUCOSE,POINT OF CARE 234 MG/DL (70-110)
[2023-06-29 20:04] VITALS: BP 125/62; PULSE 100; RESP 18; TEMP 97.7; O2SAT 98
[2023-06-29 20:47] LABS: GLUCOMETER DEV NAME(LOC) BV3N.; GLUCOSE,POINT OF CARE 216 MG/DL (70-110)
[2023-06-30 05:57] LABS: GLUCOMETER DEV NAME(LOC) BV3N.; GLUCOSE,POINT OF CARE 130 MG/DL (70-110)
[2023-06-30 08:32] VITALS: BP 122/74; PULSE 100; RESP 18; TEMP 98.7; O2SAT 97
[2023-06-30 12:01] LABS: GLUCOMETER DEV NAME(LOC) BV3N.; GLUCOSE,POINT OF CARE 261 MG/DL (70-110)
[2023-06-30 17:16] LABS: GLUCOMETER DEV NAME(LOC) BV3N.; GLUCOSE,POINT OF CARE 360 MG/DL (70-110)
[2023-06-30 21:01] LABS: GLUCOMETER DEV NAME(LOC) BV3N.; GLUCOSE,POINT OF CARE 315 MG/DL (70-110)
[2023-06-30 23:09] VITALS: BP 121/62; PULSE 88; RESP 16; TEMP 98.2; O2SAT 98
[2023-07-01 06:21] LABS: GLUCOMETER DEV NAME(LOC) BV3N.; GLUCOSE,POINT OF CARE 107 MG/DL (70-110)
[2023-07-01 12:06] LABS: GLUCOMETER DEV NAME(LOC) BV3N.; GLUCOSE,POINT OF CARE 130 MG/DL (70-110)
[2023-07-01] MEDS ORDERED: LORazepam 2 MG/ML VIAL ONE (15:50)
[2023-07-01] MEDS ORDERED: HALOPERIDOL LACTATE 5 MG/ML VIAL ONE (15:50)
[2023-07-01] MEDS ORDERED: DiphenhydrAMINE HCL 50 MG/ML VIAL ONE (15:50)
[2023-07-01] MEDS: LORazepam 2 MG/ML VIAL IM ONE (15:58)
[2023-07-01] MEDS: DiphenhydrAMINE HCL 50 MG/ML VIAL IM ONE (15:58)
[2023-07-01] MEDS: HALOPERIDOL LACTATE 5 MG/ML VIAL IM ONE (15:58)
[2023-07-01 17:11] LABS: GLUCOMETER DEV NAME(LOC) BV3N.; GLUCOSE,POINT OF CARE 168 MG/DL (70-110)
[2023-07-01 20:28] VITALS: BP 125/72; PULSE 92; RESP 16; TEMP 98.6
[2023-07-01] MEDS: QUEtiapine FUMARATE 200 MG TABLET PO SCH (20:44)
[2023-07-01 21:01] LABS: GLUCOMETER DEV NAME(LOC) BV3N.; GLUCOSE,POINT OF CARE 298 MG/DL (70-110)
[2023-07-02 05:08] LABS: CLOZAPINE & NORCLOZAPINE 622 ng/mL; NORCLOZAPINE 113 ng/mL (Not Estab.)
[2023-07-02 06:31] LABS: GLUCOMETER DEV NAME(LOC) BV3N.; GLUCOSE,POINT OF CARE 123 MG/DL (70-110)
[2023-07-02 08:58] VITALS: BP 120/72; PULSE 88; RESP 17; TEMP 98.4; O2SAT 98
[2023-07-02 12:31] LABS: GLUCOMETER DEV NAME(LOC) BV3N.; GLUCOSE,POINT OF CARE 163 MG/DL (70-110)
[2023-07-02 16:56] LABS: GLUCOMETER DEV NAME(LOC) BV3N.; GLUCOSE,POINT OF CARE 497 MG/DL (70-110)
[2023-07-02 20:00] VITALS: BP 126/70; PULSE 90; RESP 18; TEMP 98.2
[2023-07-02 20:56] LABS: GLUCOMETER DEV NAME(LOC) BV3N.; GLUCOSE,POINT OF CARE 137 MG/DL (70-110)
[2023-07-03 07:01] LABS: GLUCOMETER DEV NAME(LOC) BV3N.; GLUCOSE,POINT OF CARE 100 MG/DL (70-110)
[2023-07-03 11:56] LABS: GLUCOMETER DEV NAME(LOC) BV3N.; GLUCOSE,POINT OF CARE 132 MG/DL (70-110)
[2023-07-03 16:51] LABS: GLUCOMETER DEV NAME(LOC) BV3N.; GLUCOSE,POINT OF CARE 382 MG/DL (70-110)
[2023-07-03 20:51] LABS: GLUCOMETER DEV NAME(LOC) BV3N.; GLUCOSE,POINT OF CARE 264 MG/DL (70-110)
[2023-07-03 23:47] VITALS: RESP 18
[2023-07-04 06:51] LABS: GLUCOMETER DEV NAME(LOC) BV3N.; GLUCOSE,POINT OF CARE 117 MG/DL (70-110)
[2023-07-04 08:12] VITALS: RESP 17
[2023-07-04 12:01] LABS: GLUCOMETER DEV NAME(LOC) BV3N.; GLUCOSE,POINT OF CARE 210 MG/DL (70-110)
[2023-07-04 18:56] LABS: GLUCOMETER DEV NAME(LOC) BV3N.; GLUCOSE,POINT OF CARE 271 MG/DL (70-110)
[2023-07-04 20:06] VITALS: BP 116/72; PULSE 103; RESP 18; TEMP 97.8; O2SAT 97
[2023-07-04 20:31] LABS: GLUCOMETER DEV NAME(LOC) BV3N.; GLUCOSE,POINT OF CARE 176 MG/DL (70-110)
[2023-07-05 06:46] LABS: GLUCOMETER DEV NAME(LOC) BV3N.; GLUCOSE,POINT OF CARE 119 MG/DL (70-110)
[2023-07-05 09:19] VITALS: BP 103/72; PULSE 96; RESP 20; TEMP 98; O2SAT 98
[2023-07-05 11:25] LABS: GLUCOMETER DEV NAME(LOC) BV3N.; GLUCOSE,POINT OF CARE 230 MG/DL (70-110)
[2023-07-05 18:06] LABS: GLUCOMETER DEV NAME(LOC) BV3N.; GLUCOSE,POINT OF CARE 313 MG/DL (70-110)
[2023-07-05 20:15] VITALS: BP 105/73; PULSE 97; RESP 18; TEMP 98.1
[2023-07-05 20:46] LABS: GLUCOMETER DEV NAME(LOC) BV3N.; GLUCOSE,POINT OF CARE 295 MG/DL (70-110)
[2023-07-06 06:51] LABS: GLUCOMETER DEV NAME(LOC) BV3N.; GLUCOSE,POINT OF CARE 109 MG/DL (70-110)
[2023-07-06 08:22] VITALS: BP 110/68; PULSE 86; RESP 17; TEMP 98; O2SAT 97
[2023-07-06 11:26] LABS: GLUCOMETER DEV NAME(LOC) BV3N.; GLUCOSE,POINT OF CARE 218 MG/DL (70-110)
[2023-07-06 16:36] LABS: GLUCOMETER DEV NAME(LOC) BV3N.; GLUCOSE,POINT OF CARE 186 MG/DL (70-110)
[2023-07-06 20:21] LABS: GLUCOMETER DEV NAME(LOC) BV3N.; GLUCOSE,POINT OF CARE 246 MG/DL (70-110)
[2023-07-06 23:00] VITALS: BP 108/72; PULSE 82; RESP 17; TEMP 98.2; O2SAT 98
[2023-07-07 06:32] LABS: GLUCOMETER DEV NAME(LOC) BV3N.; GLUCOSE,POINT OF CARE 113 MG/DL (70-110)
[2023-07-07 08:27] VITALS: BP 133/78; PULSE 74; RESP 18; TEMP 98.1; O2SAT 98
[2023-07-07 08:58] LABS: BASOPHILS % (AUTO) 0.6 % (0.0-2.0); EOSINOPHILS % (AUTO) 3.9 % (1.0-6.0); HEMOGLOBIN 14.8 g/dL (13.5-17.5); LYMPHOCYTES % (AUTO) 26.2 % (22.0-44.0); MEAN CORPUSCULAR HEMOGLOBIN 33.6 pg (26.0-34.0); MEAN CORPUSCULAR HGB CONC 34.4 G/dL (31.0-37.0); MEAN CORPUSCULAR VOLUME 98 fL (80-100); MONOCYTES # (AUTO) 0.7 K/uL (0.1-1.0); MONOCYTES % (AUTO) 9.7 % (2.0-9.0); NEUTROPHILS # (AUTO) 4.4 K/uL (1.8-7.7); NEUTROPHILS % (AUTO) 59.6 % (40.0-70.0); PLATELET COUNT (AUTO) 155 K/uL (150-450); RED CELL DISTRIBUTION WIDTH 12.8 % (11.5-14.5); WHITE BLOOD COUNT (AUTO) 7.5 K/uL (4.5-11.0)
[2023-07-07 09:19] LABS: ALANINE AMINOTRANSFERASE 27 U/L (12-78); ALBUMIN 3.9 g/dL (3.4-5.0); ALKALINE PHOSPHATASE 64 U/L (46-116); ANION GAP 13 mmol/L (8-16); ASPARTATE AMINOTRANSFERASE 23 U/L (15-37); BILIRUBIN,TOTAL 0.4 mg/dL (0.1-1.0); CALCIUM, TOTAL 9.9 mg/dL (8.8-10.5); CARBON DIOXIDE 25 mmol/L (22-29); CHLORIDE 104 mmol/L (98-107); CREATININE 1.04 mg/dL (0.60-1.30); GLOMERULAR FILTR. RATE CALC > 60 mL/min (>60); GLUCOSE,RANDOM 192 mg/dL (70-110); POTASSIUM 4.4 mmol/L (3.5-5.1); SODIUM SERUM 142 mmol/L (136-145); TOTAL PROTEIN, SERUM 7.5 g/dL (6.4-8.2); UREA NITROGEN, BLOOD 19 mg/dL (7-18)
[2023-07-07 11:42] LABS: GLUCOMETER DEV NAME(LOC) BV3N.; GLUCOSE,POINT OF CARE 287 MG/DL (70-110)
[2023-07-07 16:51] LABS: GLUCOMETER DEV NAME(LOC) BV3N.; GLUCOSE,POINT OF CARE 361 MG/DL (70-110)
[2023-07-07 20:41] LABS: GLUCOMETER DEV NAME(LOC) BV3N.; GLUCOSE,POINT OF CARE 306 MG/DL (70-110)
[2023-07-07 21:40] VITALS: BP 148/76; PULSE 78; RESP 16; TEMP 98.5; O2SAT 98
[2023-07-08 06:36] LABS: GLUCOMETER DEV NAME(LOC) BV3N.; GLUCOSE,POINT OF CARE 88 MG/DL (70-110)
[2023-07-08 08:15] VITALS: RESP 18
[2023-07-08] MEDS: LinaGLIPtin 5 MG TABLET PO SCH (08:20)
[2023-07-08 11:46] LABS: GLUCOMETER DEV NAME(LOC) BV3N.; GLUCOSE,POINT OF CARE 169 MG/DL (70-110)
[2023-07-08 20:01] VITALS: BP 132/83; PULSE 100; RESP 18; TEMP 98
[2023-07-08 20:11] LABS: GLUCOMETER DEV NAME(LOC) BV3N.; GLUCOSE,POINT OF CARE 229 MG/DL (70-110)
[2023-07-08 21:11] LABS: GLUCOMETER DEV NAME(LOC) BV3N.; GLUCOSE,POINT OF CARE 146 MG/DL (70-110)
[2023-07-09 06:31] LABS: GLUCOMETER DEV NAME(LOC) BV3N.; GLUCOSE,POINT OF CARE 114 MG/DL (70-110)
[2023-07-09 11:51] LABS: GLUCOMETER DEV NAME(LOC) BV3N.; GLUCOSE,POINT OF CARE 149 MG/DL (70-110)
[2023-07-09 16:40] LABS: GLUCOMETER DEV NAME(LOC) BV3N.; GLUCOSE,POINT OF CARE 340 MG/DL (70-110)
[2023-07-09] MEDS: VALPROIC ACID 250 MG/5 ML SOLUTION UDCUP PO SCH (20:58)
[2023-07-09 21:17] LABS: GLUCOMETER DEV NAME(LOC) BV3N.; GLUCOSE,POINT OF CARE 171 MG/DL (70-110)
[2023-07-09 23:52] VITALS: BP 138/72; PULSE 82; RESP 16; TEMP 97.5; O2SAT 96
[2023-07-10 06:31] LABS: GLUCOMETER DEV NAME(LOC) BV3N.; GLUCOSE,POINT OF CARE 136 MG/DL (70-110)
[2023-07-10 11:26] LABS: GLUCOMETER DEV NAME(LOC) BV3N.; GLUCOSE,POINT OF CARE 242 MG/DL (70-110)
[2023-07-10 17:01] LABS: GLUCOMETER DEV NAME(LOC) BV3N.; GLUCOSE,POINT OF CARE 280 MG/DL (70-110)
[2023-07-10 20:13] VITALS: BP 116/67; PULSE 83; RESP 17; TEMP 97.7; O2SAT 97
[2023-07-10 20:31] LABS: GLUCOMETER DEV NAME(LOC) BV3N.; GLUCOSE,POINT OF CARE 220 MG/DL (70-110)
[2023-07-11 06:07] LABS: GLUCOMETER DEV NAME(LOC) BV3N.; GLUCOSE,POINT OF CARE 112 MG/DL (70-110)
[2023-07-11 08:16] VITALS: BP 124/79; PULSE 87; RESP 20; TEMP 96.9; O2SAT 98
[2023-07-11 11:47] LABS: GLUCOMETER DEV NAME(LOC) BV3N.; GLUCOSE,POINT OF CARE 327 MG/DL (70-110)
[2023-07-11 17:01] LABS: GLUCOMETER DEV NAME(LOC) BV3N.; GLUCOSE,POINT OF CARE 150 MG/DL (70-110)
[2023-07-11 21:05] LABS: GLUCOMETER DEV NAME(LOC) BV3N.; GLUCOSE,POINT OF CARE 181 MG/DL (70-110)
[2023-07-12 01:21] VITALS: RESP 17
[2023-07-12 06:41] LABS: GLUCOMETER DEV NAME(LOC) BV3N.; GLUCOSE,POINT OF CARE 82 MG/DL (70-110)
[2023-07-12 10:08] VITALS: BP 109/64; PULSE 93; RESP 18; TEMP 97.9; O2SAT 97
[2023-07-12 12:10] LABS: GLUCOMETER DEV NAME(LOC) BV3N.; GLUCOSE,POINT OF CARE 163 MG/DL (70-110)
[2023-07-12 17:12] LABS: GLUCOMETER DEV NAME(LOC) BV3N.; GLUCOSE,POINT OF CARE 189 MG/DL (70-110)
[2023-07-12 20:01] VITALS: BP 126/77; PULSE 89; RESP 18; TEMP 98.1
[2023-07-12 21:16] LABS: GLUCOMETER DEV NAME(LOC) BV3N.; GLUCOSE,POINT OF CARE 128 MG/DL (70-110)
[2023-07-13 06:36] LABS: GLUCOMETER DEV NAME(LOC) BV3N.; GLUCOSE,POINT OF CARE 98 MG/DL (70-110)
[2023-07-13 08:42] VITALS: BP 132/72; PULSE 88; RESP 20; TEMP 96.9
[2023-07-13 11:36] LABS: GLUCOMETER DEV NAME(LOC) BV3N.; GLUCOSE,POINT OF CARE 264 MG/DL (70-110)
[2023-07-13 17:46] LABS: GLUCOMETER DEV NAME(LOC) BV3N.; GLUCOSE,POINT OF CARE 123 MG/DL (70-110)
[2023-07-13 20:02] VITALS: BP 124/64; PULSE 90; RESP 18; TEMP 97.8; O2SAT 97
[2023-07-13] MEDS: TraZODone HCL 150 MG TABLET PO SCH (20:50)
[2023-07-13] MEDS: MELATONIN 5 MG TABLET PO SCH (20:50)
[2023-07-13] MEDS: TEMAZEPAM 15 MG CAPSULE PO PRN (20:51)
[2023-07-13 21:01] LABS: GLUCOMETER DEV NAME(LOC) BV3N.; GLUCOSE,POINT OF CARE 203 MG/DL (70-110)
[2023-07-14 07:01] LABS: GLUCOMETER DEV NAME(LOC) BV3N.; GLUCOSE,POINT OF CARE 111 MG/DL (70-110)
[2023-07-14 08:05] LABS: BASOPHILS % (AUTO) 0.5 % (0.0-2.0); EOSINOPHILS % (AUTO) 4.1 % (1.0-6.0); HEMATOCRIT 39.6 % (41-53); HEMOGLOBIN 13.6 g/dL (13.5-17.5); LYMPHOCYTES # (AUTO) 2.2 K/uL (1.0-4.8); LYMPHOCYTES % (AUTO) 34.2 % (22.0-44.0); MEAN CORPUSCULAR HEMOGLOBIN 33.4 pg (26.0-34.0); MEAN CORPUSCULAR HGB CONC 34.2 G/dL (31.0-37.0); MEAN CORPUSCULAR VOLUME 98 fL (80-100); MONOCYTES # (AUTO) 0.7 K/uL (0.1-1.0); MONOCYTES % (AUTO) 11.3 % (2.0-9.0); NEUTROPHILS # (AUTO) 3.2 K/uL (1.8-7.7); NEUTROPHILS % (AUTO) 49.9 % (40.0-70.0); PLATELET COUNT (AUTO) 133 K/uL (150-450); RED BLOOD CELL COUNT(AUTO) 4.06 MIL/uL (4.50-5.90); RED CELL DISTRIBUTION WIDTH 12.7 % (11.5-14.5); WHITE BLOOD COUNT (AUTO) 6.5 K/uL (4.5-11.0)
[2023-07-14 08:15] VITALS: BP 113/66; PULSE 99; RESP 16; TEMP 98.3; O2SAT 98
[2023-07-14 11:42] LABS: GLUCOMETER DEV NAME(LOC) BV3N.; GLUCOSE,POINT OF CARE 177 MG/DL (70-110)
[2023-07-14 16:51] LABS: GLUCOMETER DEV NAME(LOC) BV3N.; GLUCOSE,POINT OF CARE 238 MG/DL (70-110)
[2023-07-14 21:57] LABS: GLUCOMETER DEV NAME(LOC) BV3N.; GLUCOSE,POINT OF CARE 230 MG/DL (70-110)
[2023-07-15 05:05] VITALS: BP 112/72; PULSE 91; RESP 18; TEMP 97.8; O2SAT 97
[2023-07-15 06:06] LABS: GLUCOMETER DEV NAME(LOC) BV3N.; GLUCOSE,POINT OF CARE 106 MG/DL (70-110)
[2023-07-15 11:46] LABS: GLUCOMETER DEV NAME(LOC) BV3N.; GLUCOSE,POINT OF CARE 118 MG/DL (70-110)
[2023-07-15 16:51] LABS: GLUCOMETER DEV NAME(LOC) BV3N.; GLUCOSE,POINT OF CARE 308 MG/DL (70-110)
[2023-07-15 20:03] VITALS: BP 118/60; PULSE 100; RESP 18; TEMP 97.8; O2SAT 97
[2023-07-15 20:51] LABS: GLUCOMETER DEV NAME(LOC) BV3N.; GLUCOSE,POINT OF CARE 128 MG/DL (70-110)
[2023-07-15] MEDS: TraZODone HCL 100 MG TABLET PO SCH (21:00)
[2023-07-16 06:51] LABS: GLUCOMETER DEV NAME(LOC) BV3N.; GLUCOSE,POINT OF CARE 110 MG/DL (70-110)
[2023-07-16 11:37] LABS: GLUCOMETER DEV NAME(LOC) BV3N.; GLUCOSE,POINT OF CARE 181 MG/DL (70-110)
[2023-07-16 16:41] LABS: GLUCOMETER DEV NAME(LOC) BV3N.; GLUCOSE,POINT OF CARE 300 MG/DL (70-110)
[2023-07-16 20:21] LABS: GLUCOMETER DEV NAME(LOC) BV3N.; GLUCOSE,POINT OF CARE 190 MG/DL (70-110)
[2023-07-16 23:02] VITALS: BP 116/62; PULSE 92; RESP 16; TEMP 98.2; O2SAT 98
[2023-07-17 06:20] LABS: GLUCOMETER DEV NAME(LOC) BV3N.; GLUCOSE,POINT OF CARE 101 MG/DL (70-110)
[2023-07-17 08:00] VITALS: BP 115/70; PULSE 85; RESP 15; TEMP 98.3
[2023-07-17 11:46] LABS: GLUCOMETER DEV NAME(LOC) BV3N.; GLUCOSE,POINT OF CARE 157 MG/DL (70-110)
[2023-07-17 17:06] LABS: GLUCOMETER DEV NAME(LOC) BV3N.; GLUCOSE,POINT OF CARE 341 MG/DL (70-110)
[2023-07-17] MEDS: DiphenhydrAMINE HCL 25 MG CAPSULE PO SCH (21:10)
[2023-07-17 21:21] LABS: GLUCOMETER DEV NAME(LOC) BV3N.; GLUCOSE,POINT OF CARE 146 MG/DL (70-110)
[2023-07-18 00:09] VITALS: RESP 18
[2023-07-18 06:36] LABS: GLUCOMETER DEV NAME(LOC) BV3N.; GLUCOSE,POINT OF CARE 119 MG/DL (70-110)
[2023-07-18 09:06] VITALS: BP 112/74; PULSE 87; RESP 18; TEMP 98.2; O2SAT 96
[2023-07-18 12:26] LABS: GLUCOMETER DEV NAME(LOC) BV3N.; GLUCOSE,POINT OF CARE 182 MG/DL (70-110)
[2023-07-18 17:01] LABS: GLUCOMETER DEV NAME(LOC) BV3N.; GLUCOSE,POINT OF CARE 177 MG/DL (70-110)
[2023-07-18 21:37] LABS: GLUCOMETER DEV NAME(LOC) BV3N.; GLUCOSE,POINT OF CARE 205 MG/DL (70-110)
[2023-07-18 22:22] VITALS: RESP 18; O2SAT 98
[2023-07-19 06:46] LABS: GLUCOMETER DEV NAME(LOC) BV3N.; GLUCOSE,POINT OF CARE 93 MG/DL (70-110)
[2023-07-19 09:04] VITALS: RESP 18
[2023-07-19 11:56] LABS: GLUCOMETER DEV NAME(LOC) BV3N.; GLUCOSE,POINT OF CARE 140 MG/DL (70-110)
[2023-07-19 19:26] LABS: GLUCOMETER DEV NAME(LOC) BV3N.; GLUCOSE,POINT OF CARE 213 MG/DL (70-110)
[2023-07-19 20:36] LABS: GLUCOMETER DEV NAME(LOC) BV3N.; GLUCOSE,POINT OF CARE 152 MG/DL (70-110)
[2023-07-19 23:50] VITALS: RESP 18
[2023-07-20 06:41] LABS: GLUCOMETER DEV NAME(LOC) BV3N.; GLUCOSE,POINT OF CARE 96 MG/DL (70-110)
[2023-07-20 11:51] LABS: GLUCOMETER DEV NAME(LOC) BV3N.; GLUCOSE,POINT OF CARE 101 MG/DL (70-110)
[2023-07-20 11:55] VITALS: RESP 18
[2023-07-20 16:51] LABS: GLUCOMETER DEV NAME(LOC) BV3N.; GLUCOSE,POINT OF CARE 271 MG/DL (70-110)
[2023-07-20 20:03] VITALS: BP 125/85; PULSE 97; RESP 16; TEMP 98.1; O2SAT 95
[2023-07-20 20:27] LABS: GLUCOMETER DEV NAME(LOC) BV3N.; GLUCOSE,POINT OF CARE 155 MG/DL (70-110)
[2023-07-21 05:51] LABS: GLUCOMETER DEV NAME(LOC) BV3N.; GLUCOSE,POINT OF CARE 88 MG/DL (70-110)
[2023-07-21 08:09] VITALS: BP 137/77; PULSE 100; RESP 18; TEMP 97.9; O2SAT 98
[2023-07-21 08:12] LABS: EOSINOPHILS % (AUTO) 4.8 % (1.0-6.0); HEMATOCRIT 41.3 % (41-53); HEMOGLOBIN 14.2 g/dL (13.5-17.5); LYMPHOCYTES # (AUTO) 2.4 K/uL (1.0-4.8); MEAN CORPUSCULAR HEMOGLOBIN 33.7 pg (26.0-34.0); MEAN CORPUSCULAR HGB CONC 34.3 G/dL (31.0-37.0); MEAN CORPUSCULAR VOLUME 98 fL (80-100); MONOCYTES # (AUTO) 0.6 K/uL (0.1-1.0); MONOCYTES % (AUTO) 9.3 % (2.0-9.0); NEUTROPHILS % (AUTO) 46.9 % (40.0-70.0); PLATELET COUNT (AUTO) 156 K/uL (150-450); RED BLOOD CELL COUNT(AUTO) 4.21 MIL/uL (4.50-5.90); RED CELL DISTRIBUTION WIDTH 12.9 % (11.5-14.5); WHITE BLOOD COUNT (AUTO) 6.3 K/uL (4.5-11.0)
[2023-07-21 11:57] LABS: GLUCOMETER DEV NAME(LOC) BV3N.; GLUCOSE,POINT OF CARE 133 MG/DL (70-110)
[2023-07-21 17:02] LABS: GLUCOMETER DEV NAME(LOC) BV3N.; GLUCOSE,POINT OF CARE 249 MG/DL (70-110)
[2023-07-21 21:01] LABS: GLUCOMETER DEV NAME(LOC) BV3N.; GLUCOSE,POINT OF CARE 187 MG/DL (70-110)
[2023-07-21 23:27] VITALS: RESP 18
[2023-07-22 06:11] LABS: GLUCOMETER DEV NAME(LOC) BV3N.; GLUCOSE,POINT OF CARE 116 MG/DL (70-110)
[2023-07-22 08:15] VITALS: BP 100/60; PULSE 100; RESP 17; TEMP 97.6; O2SAT 95
[2023-07-22 11:56] LABS: GLUCOMETER DEV NAME(LOC) BV3N.; GLUCOSE,POINT OF CARE 128 MG/DL (70-110)
[2023-07-22 17:01] LABS: GLUCOMETER DEV NAME(LOC) BV3N.; GLUCOSE,POINT OF CARE 143 MG/DL (70-110)
[2023-07-22 21:41] LABS: GLUCOMETER DEV NAME(LOC) BV3N.; GLUCOSE,POINT OF CARE 299 MG/DL (70-110)
[2023-07-22 21:51] VITALS: RESP 18
[2023-07-23 06:41] LABS: GLUCOMETER DEV NAME(LOC) BV3N.; GLUCOSE,POINT OF CARE 92 MG/DL (70-110)
[2023-07-23 09:03] VITALS: BP 110/60; PULSE 100; RESP 18; TEMP 97.8; O2SAT 100
[2023-07-23 12:32] LABS: GLUCOMETER DEV NAME(LOC) BV3N.; GLUCOSE,POINT OF CARE 248 MG/DL (70-110)
[2023-07-23 17:16] LABS: GLUCOMETER DEV NAME(LOC) BV3N.; GLUCOSE,POINT OF CARE 236 MG/DL (70-110)
[2023-07-23 20:51] LABS: GLUCOMETER DEV NAME(LOC) BV3N.; GLUCOSE,POINT OF CARE 221 MG/DL (70-110)
[2023-07-24 06:51] LABS: GLUCOMETER DEV NAME(LOC) BV3N.; GLUCOSE,POINT OF CARE 88 MG/DL (70-110)
[2023-07-24 08:06] VITALS: BP 115/78; PULSE 63; RESP 18; TEMP 97.5; O2SAT 97
[2023-07-24 11:42] LABS: GLUCOMETER DEV NAME(LOC) BV3N.; GLUCOSE,POINT OF CARE 234 MG/DL (70-110)
[2023-07-24 21:01] LABS: GLUCOMETER DEV NAME(LOC) BV3N.; GLUCOSE,POINT OF CARE 292 MG/DL (70-110)
[2023-07-24 21:01] LABS: GLUCOMETER DEV NAME(LOC) BV3N.; GLUCOSE,POINT OF CARE 257 MG/DL (70-110)
[2023-07-24 22:15] VITALS: BP 116/61; PULSE 92; RESP 18; TEMP 97.5; O2SAT 97
[2023-07-25 06:26] LABS: GLUCOMETER DEV NAME(LOC) BV3N.; GLUCOSE,POINT OF CARE 88 MG/DL (70-110)
[2023-07-25 09:55] VITALS: BP 123/72; PULSE 100; RESP 18; TEMP 97.8; O2SAT 97
[2023-07-25 11:41] LABS: GLUCOMETER DEV NAME(LOC) BV3N.; GLUCOSE,POINT OF CARE 170 MG/DL (70-110)
[2023-07-25 17:16] LABS: GLUCOMETER DEV NAME(LOC) BV3N.; GLUCOSE,POINT OF CARE 291 MG/DL (70-110)
[2023-07-25 20:24] VITALS: BP 126/106; PULSE 100; RESP 20; TEMP 97.4; O2SAT 100
[2023-07-25 21:16] LABS: GLUCOMETER DEV NAME(LOC) BV3N.; GLUCOSE,POINT OF CARE 158 MG/DL (70-110)
[2023-07-26 06:37] LABS: GLUCOMETER DEV NAME(LOC) BV3N.; GLUCOSE,POINT OF CARE 130 MG/DL (70-110)
[2023-07-26 11:51] LABS: GLUCOMETER DEV NAME(LOC) BV3N.; GLUCOSE,POINT OF CARE 136 MG/DL (70-110)
[2023-07-26 12:32] VITALS: BP 143/99; PULSE 90; RESP 16; TEMP 97
[2023-07-26 17:11] LABS: GLUCOMETER DEV NAME(LOC) BV3N.; GLUCOSE,POINT OF CARE 270 MG/DL (70-110)
[2023-07-26 20:07] VITALS: BP 126/82; PULSE 96; RESP 18; TEMP 97.8; O2SAT 97
[2023-07-26 21:16] LABS: GLUCOMETER DEV NAME(LOC) BV3N.; GLUCOSE,POINT OF CARE 181 MG/DL (70-110)
[2023-07-27 06:31] LABS: GLUCOMETER DEV NAME(LOC) BV3N.; GLUCOSE,POINT OF CARE 115 MG/DL (70-110)
[2023-07-27 08:05] VITALS: BP 130/83; PULSE 79; RESP 18; TEMP 97.9; O2SAT 98
[2023-07-27 13:06] LABS: GLUCOMETER DEV NAME(LOC) BV3N.; GLUCOSE,POINT OF CARE 103 MG/DL (70-110)
[2023-07-27 17:05] LABS: GLUCOMETER DEV NAME(LOC) BV3N.; GLUCOSE,POINT OF CARE 196 MG/DL (70-110)
[2023-07-27 20:02] VITALS: BP 117/67; PULSE 108; RESP 19; TEMP 97.6; O2SAT 98
[2023-07-27] MEDS: CloZAPine 100 MG TABLET PO SCH (20:42)
[2023-07-27 20:46] LABS: GLUCOMETER DEV NAME(LOC) BV3N.; GLUCOSE,POINT OF CARE 219 MG/DL (70-110)
[2023-07-28 06:31] LABS: GLUCOMETER DEV NAME(LOC) BV3N.; GLUCOSE,POINT OF CARE 165 MG/DL (70-110)
[2023-07-28 08:07] VITALS: RESP 18
[2023-07-28 08:41] LABS: BASOPHILS % (AUTO) 0.7 % (0.0-2.0); EOSINOPHILS % (AUTO) 4.7 % (1.0-6.0); HEMATOCRIT 40.6 % (41-53); HEMOGLOBIN 13.3 g/dL (13.5-17.5); LYMPHOCYTES # (AUTO) 2.4 K/uL (1.0-4.8); LYMPHOCYTES % (AUTO) 32.7 % (22.0-44.0); MEAN CORPUSCULAR HEMOGLOBIN 32.4 pg (26.0-34.0); MEAN CORPUSCULAR HGB CONC 32.8 G/dL (31.0-37.0); MEAN CORPUSCULAR VOLUME 99 fL (80-100); MONOCYTES # (AUTO) 0.7 K/uL (0.1-1.0); NEUTROPHILS # (AUTO) 3.8 K/uL (1.8-7.7); NEUTROPHILS % (AUTO) 51.9 % (40.0-70.0); PLATELET COUNT (AUTO) 137 K/uL (150-450); RED BLOOD CELL COUNT(AUTO) 4.12 MIL/uL (4.50-5.90); RED CELL DISTRIBUTION WIDTH 13.1 % (11.5-14.5); WHITE BLOOD COUNT (AUTO) 7.4 K/uL (4.5-11.0)
[2023-07-28 11:51] LABS: GLUCOMETER DEV NAME(LOC) BV3N.; GLUCOSE,POINT OF CARE 303 MG/DL (70-110)
[2023-07-28 16:21] LABS: GLUCOMETER DEV NAME(LOC) BV3N.; GLUCOSE,POINT OF CARE 256 MG/DL (70-110)
[2023-07-28 20:05] VITALS: BP 128/77; PULSE 88; RESP 18; TEMP 97.8; O2SAT 97
[2023-07-28 20:11] LABS: GLUCOMETER DEV NAME(LOC) BV3N.; GLUCOSE,POINT OF CARE 136 MG/DL (70-110)
[2023-07-29 06:02] LABS: GLUCOMETER DEV NAME(LOC) BV3N.; GLUCOSE,POINT OF CARE 112 MG/DL (70-110)
[2023-07-29 09:39] VITALS: BP 115/78; PULSE 98; RESP 18; TEMP 98.1; O2SAT 98
[2023-07-29 12:01] LABS: GLUCOMETER DEV NAME(LOC) BV3N.; GLUCOSE,POINT OF CARE 149 MG/DL (70-110)
[2023-07-29 17:01] LABS: GLUCOMETER DEV NAME(LOC) BV3N.; GLUCOSE,POINT OF CARE 201 MG/DL (70-110)
[2023-07-29 20:03] VITALS: BP 118/68; PULSE 100; RESP 18; TEMP 97.9; O2SAT 97
[2023-07-29 21:11] LABS: GLUCOMETER DEV NAME(LOC) BV3N.; GLUCOSE,POINT OF CARE 192 MG/DL (70-110)
[2023-07-30 06:36] LABS: GLUCOMETER DEV NAME(LOC) BV3N.; GLUCOSE,POINT OF CARE 109 MG/DL (70-110)
[2023-07-30 11:30] VITALS: BP 91/57; PULSE 90; RESP 18; TEMP 96.4; O2SAT 100
[2023-07-30 11:41] LABS: GLUCOMETER DEV NAME(LOC) BV3N.; GLUCOSE,POINT OF CARE 257 MG/DL (70-110)
[2023-07-30 17:11] LABS: GLUCOMETER DEV NAME(LOC) BV3N.; GLUCOSE,POINT OF CARE 162 MG/DL (70-110)
[2023-07-30 20:41] VITALS: BP 110/68; PULSE 80; RESP 18; TEMP 98
[2023-07-30 21:12] LABS: GLUCOMETER DEV NAME(LOC) BV3N.; GLUCOSE,POINT OF CARE 231 MG/DL (70-110)
[2023-07-31 06:41] LABS: GLUCOMETER DEV NAME(LOC) BV3N.; GLUCOSE,POINT OF CARE 93 MG/DL (70-110)
[2023-07-31 09:56] VITALS: BP 112/69; PULSE 83; RESP 18; TEMP 97.7; O2SAT 98
[2023-07-31 11:56] LABS: GLUCOMETER DEV NAME(LOC) BV3N.; GLUCOSE,POINT OF CARE 177 MG/DL (70-110)
[2023-07-31 16:46] LABS: GLUCOMETER DEV NAME(LOC) BV3N.; GLUCOSE,POINT OF CARE 243 MG/DL (70-110)
[2023-07-31 20:02] VITALS: RESP 18
[2023-07-31 21:16] LABS: GLUCOMETER DEV NAME(LOC) BV3N.; GLUCOSE,POINT OF CARE 84 MG/DL (70-110)
[2023-08-01 06:31] LABS: GLUCOMETER DEV NAME(LOC) BV3N.; GLUCOSE,POINT OF CARE 83 MG/DL (70-110)
[2023-08-01 11:36] LABS: GLUCOMETER DEV NAME(LOC) BV3N.; GLUCOSE,POINT OF CARE 251 MG/DL (70-110)
[2023-08-01 12:17] VITALS: BP 110/70; PULSE 108; RESP 16; TEMP 97.3; O2SAT 96
[2023-08-01 16:56] LABS: GLUCOMETER DEV NAME(LOC) BV3N.; GLUCOSE,POINT OF CARE 151 MG/DL (70-110)
[2023-08-01 20:36] LABS: GLUCOMETER DEV NAME(LOC) BV3N.; GLUCOSE,POINT OF CARE 228 MG/DL (70-110)
[2023-08-01 20:56] VITALS: BP 118/69; PULSE 95; RESP 18; TEMP 97.8; O2SAT 96
[2023-08-02 06:41] LABS: GLUCOMETER DEV NAME(LOC) BV3N.; GLUCOSE,POINT OF CARE 91 MG/DL (70-110)
[2023-08-02 11:13] VITALS: BP 114/76; PULSE 97; RESP 17; TEMP 96.6; O2SAT 97
[2023-08-02 11:51] LABS: GLUCOMETER DEV NAME(LOC) BV3N.; GLUCOSE,POINT OF CARE 142 MG/DL (70-110)
[2023-08-02 16:51] LABS: GLUCOMETER DEV NAME(LOC) BV3N.; GLUCOSE,POINT OF CARE 222 MG/DL (70-110)
[2023-08-02 20:46] VITALS: BP 119/78; PULSE 110; RESP 19; TEMP 97.9; O2SAT 98
[2023-08-02 21:01] LABS: GLUCOMETER DEV NAME(LOC) BV3N.; GLUCOSE,POINT OF CARE 185 MG/DL (70-110)
[2023-08-03 06:31] LABS: GLUCOMETER DEV NAME(LOC) BV3N.; GLUCOSE,POINT OF CARE 88 MG/DL (70-110)
[2023-08-03 09:07] LABS: CLOZAPINE & NORCLOZAPINE 528 ng/mL; NORCLOZAPINE 138 ng/mL (Not Estab.)
[2023-08-03 10:15] VITALS: BP 120/81; PULSE 89; RESP 17; TEMP 98; O2SAT 98
[2023-08-03 11:41] LABS: GLUCOMETER DEV NAME(LOC) BV3N.; GLUCOSE,POINT OF CARE 160 MG/DL (70-110)
[2023-08-03 16:50] LABS: GLUCOMETER DEV NAME(LOC) BV3N.; GLUCOSE,POINT OF CARE 130 MG/DL (70-110)
[2023-08-03 20:41] LABS: GLUCOMETER DEV NAME(LOC) BV3N.; GLUCOSE,POINT OF CARE 186 MG/DL (70-110)
[2023-08-03 23:47] VITALS: BP 125/72; PULSE 86; RESP 18; TEMP 97.8
[2023-08-04 06:36] LABS: GLUCOMETER DEV NAME(LOC) BV3N.; GLUCOSE,POINT OF CARE 120 MG/DL (70-110)
[2023-08-04 08:02] VITALS: BP 125/68; PULSE 100; RESP 17; TEMP 97.6; O2SAT 100
[2023-08-04 08:03] VITALS: BP 125/68; PULSE 100; RESP 17; TEMP 97.8
[2023-08-04 09:00] LABS: BASOPHILS % (AUTO) 0.7 % (0.0-2.0); EOSINOPHILS % (AUTO) 4.1 % (1.0-6.0); HEMATOCRIT 44.3 % (41-53); HEMOGLOBIN 14.6 g/dL (13.5-17.5); LYMPHOCYTES # (AUTO) 2.3 K/uL (1.0-4.8); LYMPHOCYTES % (AUTO) 31.7 % (22.0-44.0); MEAN CORPUSCULAR HEMOGLOBIN 32.4 pg (26.0-34.0); MEAN CORPUSCULAR HGB CONC 32.9 G/dL (31.0-37.0); MEAN CORPUSCULAR VOLUME 98 fL (80-100); MONOCYTES # (AUTO) 0.7 K/uL (0.1-1.0); NEUTROPHILS % (AUTO) 54.5 % (40.0-70.0); PLATELET COUNT (AUTO) 145 K/uL (150-450); RED BLOOD CELL COUNT(AUTO) 4.51 MIL/uL (4.50-5.90); RED CELL DISTRIBUTION WIDTH 13.2 % (11.5-14.5); WHITE BLOOD COUNT (AUTO) 7.3 K/uL (4.5-11.0)
[2023-08-04 11:26] LABS: GLUCOMETER DEV NAME(LOC) BV3N.; GLUCOSE,POINT OF CARE 123 MG/DL (70-110)
[2023-08-04 16:21] LABS: GLUCOMETER DEV NAME(LOC) BV3N.; GLUCOSE,POINT OF CARE 235 MG/DL (70-110)
[2023-08-04 20:56] VITALS: BP 117/55; PULSE 108; RESP 16; TEMP 98; O2SAT 95
[2023-08-04] MEDS: CloZAPine 100 MG TABLET PO SCH (21:00)
[2023-08-04 21:56] LABS: GLUCOMETER DEV NAME(LOC) BV3N.; GLUCOSE,POINT OF CARE 128 MG/DL (70-110)
[2023-08-05 06:21] LABS: GLUCOMETER DEV NAME(LOC) BV3N.; GLUCOSE,POINT OF CARE 99 MG/DL (70-110)
[2023-08-05] MEDS: LITHIUM CARBONATE 300 MG CAPSULE PO SCH ×2 (08:11→17:32)
[2023-08-05] MEDS: CloZAPine 100 MG TABLET PO SCH (08:11)
[2023-08-05 12:16] LABS: GLUCOMETER DEV NAME(LOC) BV3N.; GLUCOSE,POINT OF CARE 102 MG/DL (70-110)
[2023-08-05 17:22] LABS: GLUCOMETER DEV NAME(LOC) BV3N.; GLUCOSE,POINT OF CARE 275 MG/DL (70-110)
[2023-08-05] MEDS: VALPROIC ACID 250 MG/5 ML SOLUTION UDCUP PO SCH (17:31)
[2023-08-05] MEDS ORDERED: LITHIUM CARBONATE 600 MG CAPSULE PO SCH (18:00)
[2023-08-05 20:46] LABS: GLUCOMETER DEV NAME(LOC) BV3N.; GLUCOSE,POINT OF CARE 130 MG/DL (70-110)
[2023-08-06 00:06] VITALS: BP 110/62; PULSE 98; RESP 16; TEMP 98; O2SAT 98
[2023-08-06 06:31] LABS: GLUCOMETER DEV NAME(LOC) BV3N.; GLUCOSE,POINT OF CARE 76 MG/DL (70-110)
[2023-08-06] MEDS: LITHIUM CARBONATE 300 MG CAPSULE PO SCH (08:02)
[2023-08-06] MEDS: ERYTHROMYCIN 0.5% 3.5 GM TUBE OPHTHALMIC OINTMENT OS SCH (13:00)
[2023-08-06 16:00] VITALS: BP 126/86; PULSE 108; RESP 17; TEMP 98.7; O2SAT 96
[2023-08-06 16:46] LABS: GLUCOMETER DEV NAME(LOC) BV2S.; GLUCOSE,POINT OF CARE 212 MG/DL (70-110)
[2023-08-06 20:16] LABS: GLUCOMETER DEV NAME(LOC) BV2S.; GLUCOSE,POINT OF CARE 164 MG/DL (70-110)
[2023-08-06 22:49] VITALS: BP 122/83; PULSE 100; RESP 18; TEMP 98.4; O2SAT 97
[2023-08-07 08:46] LABS: GLUCOMETER DEV NAME(LOC) BV2S.; GLUCOSE,POINT OF CARE 231 MG/DL (70-110)
[2023-08-07 08:51] VITALS: BP 113/60; PULSE 103; RESP 18; TEMP 98.2; O2SAT 98
[2023-08-07 11:35] LABS: GLUCOMETER DEV NAME(LOC) BV2S.; GLUCOSE,POINT OF CARE 251 MG/DL (70-110)
[2023-08-07 20:00] VITALS: RESP 18
[2023-08-07 20:46] LABS: GLUCOMETER DEV NAME(LOC) BV2S.; GLUCOSE,POINT OF CARE 167 MG/DL (70-110)
[2023-08-07 21:26] LABS: GLUCOMETER DEV NAME(LOC) BV2S.; GLUCOSE,POINT OF CARE 66 MG/DL (70-110)
[2023-08-07 23:31] LABS: GLUCOMETER DEV NAME(LOC) BV2S.; GLUCOSE,POINT OF CARE 70 MG/DL (70-110)
[2023-08-08 06:21] LABS: GLUCOMETER DEV NAME(LOC) BV2S.; GLUCOSE,POINT OF CARE 152 MG/DL (70-110)
[2023-08-08 09:00] VITALS: BP 133/80; PULSE 81; RESP 18; TEMP 98; O2SAT 98
[2023-08-08 12:11] LABS: GLUCOMETER DEV NAME(LOC) BV2S.; GLUCOSE,POINT OF CARE 146 MG/DL (70-110)
[2023-08-08 16:36] LABS: GLUCOMETER DEV NAME(LOC) BV2S.; GLUCOSE,POINT OF CARE 210 MG/DL (70-110)
[2023-08-08 20:01] VITALS: BP 139/76; PULSE 79; RESP 18; TEMP 97.6; O2SAT 97
[2023-08-08 20:56] LABS: GLUCOMETER DEV NAME(LOC) BV2S.; GLUCOSE,POINT OF CARE 104 MG/DL (70-110)
[2023-08-09 07:01] LABS: GLUCOMETER DEV NAME(LOC) BV2S.; GLUCOSE,POINT OF CARE 63 MG/DL (70-110)
[2023-08-09 08:26] VITALS: BP 97/58; PULSE 102; RESP 17; TEMP 97.8; O2SAT 96
[2023-08-09 11:25] LABS: GLUCOMETER DEV NAME(LOC) BV2S.; GLUCOSE,POINT OF CARE 151 MG/DL (70-110)
[2023-08-09 16:46] LABS: GLUCOMETER DEV NAME(LOC) BV2S.; GLUCOSE,POINT OF CARE 326 MG/DL (70-110)
[2023-08-09 21:36] LABS: GLUCOMETER DEV NAME(LOC) BV2S.; GLUCOSE,POINT OF CARE 97 MG/DL (70-110)
[2023-08-09 21:39] VITALS: BP 113/72; PULSE 120; RESP 18; TEMP 97.9; O2SAT 95
[2023-08-09 21:44] VITALS: BP 113/72; PULSE 106; RESP 18; TEMP 97.9; O2SAT 95
[2023-08-10 06:56] LABS: GLUCOMETER DEV NAME(LOC) BV2X.2; GLUCOSE,POINT OF CARE 76 MG/DL (70-110)
[2023-08-10 08:15] VITALS: RESP 18
[2023-08-10 08:56] LABS: LITHIUM 0.77 mmol/L (0.60-1.20)
[2023-08-10 11:11] LABS: GLUCOMETER DEV NAME(LOC) BV2S.; GLUCOSE,POINT OF CARE 118 MG/DL (70-110)
[2023-08-10 16:36] LABS: GLUCOMETER DEV NAME(LOC) BV2S.; GLUCOSE,POINT OF CARE 173 MG/DL (70-110)
[2023-08-10 20:18] VITALS: BP 133/90; PULSE 92; RESP 18; TEMP 97.6; O2SAT 98
[2023-08-10 20:46] LABS: GLUCOMETER DEV NAME(LOC) BV2S.; GLUCOSE,POINT OF CARE 116 MG/DL (70-110)
[2023-08-11 06:21] LABS: GLUCOMETER DEV NAME(LOC) BV2S.; GLUCOSE,POINT OF CARE 103 MG/DL (70-110)
[2023-08-11 08:31] LABS: BASOPHILS % (AUTO) 0.4 % (0.0-2.0); EOSINOPHILS % (AUTO) 3.5 % (1.0-6.0); HEMATOCRIT 41.4 % (41-53); HEMOGLOBIN 13.9 g/dL (13.5-17.5); LYMPHOCYTES # (AUTO) 2.1 K/uL (1.0-4.8); LYMPHOCYTES % (AUTO) 29.8 % (22.0-44.0); MEAN CORPUSCULAR HEMOGLOBIN 32.9 pg (26.0-34.0); MEAN CORPUSCULAR HGB CONC 33.5 G/dL (31.0-37.0); MEAN CORPUSCULAR VOLUME 98 fL (80-100); MONOCYTES # (AUTO) 0.7 K/uL (0.1-1.0); MONOCYTES % (AUTO) 9.2 % (2.0-9.0); NEUTROPHILS # (AUTO) 4.1 K/uL (1.8-7.7); NEUTROPHILS % (AUTO) 57.1 % (40.0-70.0); PLATELET COUNT (AUTO) 154 K/uL (150-450); RED BLOOD CELL COUNT(AUTO) 4.22 MIL/uL (4.50-5.90); RED CELL DISTRIBUTION WIDTH 13.2 % (11.5-14.5); WHITE BLOOD COUNT (AUTO) 7.2 K/uL (4.5-11.0)
[2023-08-11 09:07] LABS: GLUCOMETER DEV NAME(LOC) BV2S.; GLUCOSE,POINT OF CARE 100 MG/DL (70-110)
[2023-08-11 10:04] VITALS: RESP 18
[2023-08-11 11:31] LABS: GLUCOMETER DEV NAME(LOC) BV2S.; GLUCOSE,POINT OF CARE 201 MG/DL (70-110)
[2023-08-11] MEDS: QUEtiapine FUMARATE 300 MG TABLET PO SCH (20:02)
[2023-08-11 20:05] VITALS: BP 141/79; PULSE 101; RESP 18; TEMP 98.1; O2SAT 97
[2023-08-11 21:21] LABS: GLUCOMETER DEV NAME(LOC) BV2S.; GLUCOSE,POINT OF CARE 142 MG/DL (70-110)
[2023-08-11 21:21] LABS: GLUCOMETER DEV NAME(LOC) BV2S.; GLUCOSE,POINT OF CARE 76 MG/DL (70-110)
[2023-08-12 06:51] LABS: GLUCOMETER DEV NAME(LOC) BV2S.; GLUCOSE,POINT OF CARE 119 MG/DL (70-110)
[2023-08-12 08:02] VITALS: BP 121/72; PULSE 102; RESP 18; TEMP 98.3; O2SAT 100
[2023-08-12 11:07] LABS: CLOZAPINE & NORCLOZAPINE 511 ng/mL; NORCLOZAPINE 123 ng/mL (Not Estab.)
[2023-08-12] MEDS: TUBERCULIN, PURIFIED PROTEIN DERIVATIVE 5 TU/0.1 ML SYRINGE ID ONE (14:40)
[2023-08-12 16:46] LABS: GLUCOMETER DEV NAME(LOC) BV2S.; GLUCOSE,POINT OF CARE 99 MG/DL (70-110)
[2023-08-12 16:46] LABS: GLUCOMETER DEV NAME(LOC) BV2S.; GLUCOSE,POINT OF CARE 266 MG/DL (70-110)
[2023-08-12 20:23] VITALS: BP 116/74; PULSE 98; RESP 18; TEMP 98.1; O2SAT 98
[2023-08-12 21:11] LABS: GLUCOMETER DEV NAME(LOC) BV2S.; GLUCOSE,POINT OF CARE 128 MG/DL (70-110)
[2023-08-13 08:09] VITALS: BP 104/60; PULSE 101; RESP 18; TEMP 97.8; O2SAT 95
[2023-08-13 11:37] LABS: GLUCOMETER DEV NAME(LOC) BV2S.; GLUCOSE,POINT OF CARE 86 MG/DL (70-110)
[2023-08-13 11:37] LABS: GLUCOMETER DEV NAME(LOC) BV2S.; GLUCOSE,POINT OF CARE 169 MG/DL (70-110)
[2023-08-13 16:36] LABS: GLUCOMETER DEV NAME(LOC) BV2S.; GLUCOSE,POINT OF CARE 163 MG/DL (70-110)
[2023-08-13 19:33] VITALS: BP 119/75; PULSE 95; RESP 18; TEMP 98
[2023-08-14 06:11] LABS: GLUCOMETER DEV NAME(LOC) BV3N.; GLUCOSE,POINT OF CARE 125 MG/DL (70-110)
[2023-08-14 08:12] VITALS: RESP 18
[2023-08-14 11:20] LABS: GLUCOMETER DEV NAME(LOC) BV3N.; GLUCOSE,POINT OF CARE 112 MG/DL (70-110)
[2023-08-14 20:31] LABS: GLUCOMETER DEV NAME(LOC) BV3N.; GLUCOSE,POINT OF CARE 209 MG/DL (70-110)
[2023-08-14 20:32] LABS: GLUCOMETER DEV NAME(LOC) BV3N.; GLUCOSE,POINT OF CARE 80 MG/DL (70-110)
[2023-08-14 22:09] VITALS: RESP 18
[2023-08-15 06:06] LABS: GLUCOMETER DEV NAME(LOC) BV3N.; GLUCOSE,POINT OF CARE 189 MG/DL (70-110)
[2023-08-15 08:31] VITALS: BP 133/81; PULSE 92; RESP 18; TEMP 98.2; O2SAT 98
[2023-08-15 11:41] LABS: GLUCOMETER DEV NAME(LOC) BV3N.; GLUCOSE,POINT OF CARE 141 MG/DL (70-110)
[2023-08-15 17:31] LABS: GLUCOMETER DEV NAME(LOC) BV3N.; GLUCOSE,POINT OF CARE 104 MG/DL (70-110)
[2023-08-15 20:56] LABS: GLUCOMETER DEV NAME(LOC) BV3N.; GLUCOSE,POINT OF CARE 86 MG/DL (70-110)
[2023-08-15 22:35] VITALS: BP 138/76; PULSE 96; RESP 18; TEMP 98.2; O2SAT 99
[2023-08-16 06:41] LABS: GLUCOMETER DEV NAME(LOC) BV3N.; GLUCOSE,POINT OF CARE 99 MG/DL (70-110)
[2023-08-16 10:00] VITALS: RESP 17
[2023-08-16 15:01] LABS: GLUCOMETER DEV NAME(LOC) BV3N.; GLUCOSE,POINT OF CARE 162 MG/DL (70-110)
[2023-08-16 20:46] LABS: GLUCOMETER DEV NAME(LOC) BV3N.; GLUCOSE,POINT OF CARE 163 MG/DL (70-110)
[2023-08-16 20:46] LABS: GLUCOMETER DEV NAME(LOC) BV3N.; GLUCOSE,POINT OF CARE 116 MG/DL (70-110)
[2023-08-16 21:12] VITALS: RESP 18
[2023-08-17 06:36] LABS: GLUCOMETER DEV NAME(LOC) BV3N.; GLUCOSE,POINT OF CARE 137 MG/DL (70-110)
[2023-08-17 11:51] LABS: GLUCOMETER DEV NAME(LOC) BV3N.; GLUCOSE,POINT OF CARE 203 MG/DL (70-110)
[2023-08-17 15:13] VITALS: RESP 18
[2023-08-17 16:46] LABS: GLUCOMETER DEV NAME(LOC) BV3N.; GLUCOSE,POINT OF CARE 190 MG/DL (70-110)
[2023-08-17 20:36] LABS: GLUCOMETER DEV NAME(LOC) BV3N.; GLUCOSE,POINT OF CARE 74 MG/DL (70-110)
[2023-08-17 21:14] VITALS: RESP 19; TEMP 98.6
[2023-08-18 07:44] LABS: BASOPHILS % (AUTO) 0.5 % (0.0-2.0); EOSINOPHILS % (AUTO) 3.3 % (1.0-6.0); HEMATOCRIT 38.7 % (41-53); HEMOGLOBIN 12.7 g/dL (13.5-17.5); LYMPHOCYTES # (AUTO) 1.7 K/uL (1.0-4.8); LYMPHOCYTES % (AUTO) 24.2 % (22.0-44.0); MEAN CORPUSCULAR HEMOGLOBIN 32.6 pg (26.0-34.0); MEAN CORPUSCULAR HGB CONC 32.9 G/dL (31.0-37.0); MEAN CORPUSCULAR VOLUME 99 fL (80-100); MONOCYTES # (AUTO) 0.6 K/uL (0.1-1.0); MONOCYTES % (AUTO) 9.2 % (2.0-9.0); NEUTROPHILS # (AUTO) 4.4 K/uL (1.8-7.7); NEUTROPHILS % (AUTO) 62.8 % (40.0-70.0); PLATELET COUNT (AUTO) 150 K/uL (150-450); RED CELL DISTRIBUTION WIDTH 13.2 % (11.5-14.5); WHITE BLOOD COUNT (AUTO) 7.1 K/uL (4.5-11.0)
[2023-08-18 08:29] VITALS: BP 102/66; RESP 17; TEMP 98.3; O2SAT 98
[2023-08-18 11:27] LABS: GLUCOMETER DEV NAME(LOC) BV3N.; GLUCOSE,POINT OF CARE 73 MG/DL (70-110)
[2023-08-18 11:27] LABS: GLUCOMETER DEV NAME(LOC) BV3N.; GLUCOSE,POINT OF CARE 191 MG/DL (70-110)
[2023-08-18 17:02] LABS: GLUCOMETER DEV NAME(LOC) BV3N.; GLUCOSE,POINT OF CARE 183 MG/DL (70-110)
[2023-08-18 21:11] LABS: GLUCOMETER DEV NAME(LOC) BV3N.; GLUCOSE,POINT OF CARE 74 MG/DL (70-110)
[2023-08-18 21:37] VITALS: BP 103/68; PULSE 110; RESP 18; TEMP 98.6; O2SAT 99
[2023-08-19 05:58] LABS: GLUCOMETER DEV NAME(LOC) BV3N.; GLUCOSE,POINT OF CARE 96 MG/DL (70-110)
[2023-08-19 08:07] LABS: BASOPHILS % (AUTO) 0.6 % (0.0-2.0); EOSINOPHILS % (AUTO) 3.3 % (1.0-6.0); HEMATOCRIT 40.3 % (41-53); HEMOGLOBIN 13.4 g/dL (13.5-17.5); LYMPHOCYTES # (AUTO) 1.8 K/uL (1.0-4.8); LYMPHOCYTES % (AUTO) 24.8 % (22.0-44.0); MEAN CORPUSCULAR HEMOGLOBIN 32.8 pg (26.0-34.0); MEAN CORPUSCULAR HGB CONC 33.3 G/dL (31.0-37.0); MEAN CORPUSCULAR VOLUME 98 fL (80-100); MONOCYTES # (AUTO) 0.7 K/uL (0.1-1.0); MONOCYTES % (AUTO) 9.9 % (2.0-9.0); NEUTROPHILS # (AUTO) 4.4 K/uL (1.8-7.7); NEUTROPHILS % (AUTO) 61.4 % (40.0-70.0); PLATELET COUNT (AUTO) 149 K/uL (150-450); RED CELL DISTRIBUTION WIDTH 13.4 % (11.5-14.5); WHITE BLOOD COUNT (AUTO) 7.2 K/uL (4.5-11.0)
[2023-08-19 11:18] VITALS: RESP 18
[2023-08-19 11:28] LABS: GLUCOMETER DEV NAME(LOC) BV3N.; GLUCOSE,POINT OF CARE 138 MG/DL (70-110)
[2023-08-19 16:52] LABS: GLUCOMETER DEV NAME(LOC) BV3N.; GLUCOSE,POINT OF CARE 158 MG/DL (70-110)
[2023-08-19 20:22] LABS: GLUCOMETER DEV NAME(LOC) BV3N.; GLUCOSE,POINT OF CARE 114 MG/DL (70-110)
[2023-08-20 00:15] VITALS: BP 108/72; PULSE 98; RESP 18; TEMP 97.9; O2SAT 98
[2023-08-20 06:38] LABS: GLUCOMETER DEV NAME(LOC) BV3N.; GLUCOSE,POINT OF CARE 107 MG/DL (70-110)
[2023-08-20 08:25] VITALS: BP 137/69; PULSE 100; RESP 17; TEMP 97.6; O2SAT 97
[2023-08-20 11:54] LABS: GLUCOMETER DEV NAME(LOC) BV3N.; GLUCOSE,POINT OF CARE 123 MG/DL (70-110)
[2023-08-20 20:00] VITALS: RESP 18
[2023-08-20 23:57] LABS: GLUCOMETER DEV NAME(LOC) BV3N.; GLUCOSE,POINT OF CARE 116 MG/DL (70-110)
[2023-08-20 23:57] LABS: GLUCOMETER DEV NAME(LOC) BV3N.; GLUCOSE,POINT OF CARE 129 MG/DL (70-110)
[2023-08-21 06:43] LABS: GLUCOMETER DEV NAME(LOC) BV3N.; GLUCOSE,POINT OF CARE 133 MG/DL (70-110)
[2023-08-21 08:44] VITALS: BP 109/68; PULSE 78; RESP 16; TEMP 98.2; O2SAT 98
[2023-08-21 11:33] LABS: GLUCOMETER DEV NAME(LOC) BV3N.; GLUCOSE,POINT OF CARE 220 MG/DL (70-110)
[2023-08-21 16:48] LABS: GLUCOMETER DEV NAME(LOC) BV3N.; GLUCOSE,POINT OF CARE 145 MG/DL (70-110)
[2023-08-21 20:32] LABS: GLUCOMETER DEV NAME(LOC) BV3N.; GLUCOSE,POINT OF CARE 146 MG/DL (70-110)
[2023-08-21 22:19] VITALS: RESP 19; TEMP 98.6
[2023-08-22 06:27] LABS: GLUCOMETER DEV NAME(LOC) BV3N.; GLUCOSE,POINT OF CARE 140 MG/DL (70-110)
[2023-08-22 10:01] VITALS: RESP 20
[2023-08-22 16:28] LABS: GLUCOMETER DEV NAME(LOC) BV3N.; GLUCOSE,POINT OF CARE 161 MG/DL (70-110)
[2023-08-22 16:28] LABS: GLUCOMETER DEV NAME(LOC) BV3N.; GLUCOSE,POINT OF CARE 262 MG/DL (70-110)
[2023-08-22 21:07] LABS: GLUCOMETER DEV NAME(LOC) BV3N.; GLUCOSE,POINT OF CARE 80 MG/DL (70-110)
[2023-08-23 00:33] VITALS: TEMP 97.6
[2023-08-23 00:44] VITALS: RESP 20; TEMP 98.6; O2SAT 99
[2023-08-23 06:27] LABS: GLUCOMETER DEV NAME(LOC) BV3N.; GLUCOSE,POINT OF CARE 108 MG/DL (70-110)
[2023-08-23 09:01] VITALS: BP 101/68; PULSE 100; RESP 17; TEMP 97.6; O2SAT 97
[2023-08-23 11:48] LABS: GLUCOMETER DEV NAME(LOC) BV3N.; GLUCOSE,POINT OF CARE 132 MG/DL (70-110)
[2023-08-23 16:27] LABS: GLUCOMETER DEV NAME(LOC) BV3N.; GLUCOSE,POINT OF CARE 252 MG/DL (70-110)
[2023-08-23 21:20] VITALS: BP 94/55; PULSE 72; RESP 16; TEMP 97; O2SAT 96
[2023-08-23 21:51] LABS: GLUCOMETER DEV NAME(LOC) BV3N.; GLUCOSE,POINT OF CARE 117 MG/DL (70-110)
[2023-08-23 21:51] LABS: GLUCOMETER DEV NAME(LOC) BV3N.; GLUCOSE,POINT OF CARE 60 MG/DL (70-110)
[2023-08-24 06:33] LABS: GLUCOMETER DEV NAME(LOC) BV3N.; GLUCOSE,POINT OF CARE 79 MG/DL (70-110)
[2023-08-24 08:10] VITALS: BP 133/72; PULSE 95; RESP 18; TEMP 97.7; O2SAT 98
[2023-08-24 12:07] LABS: GLUCOMETER DEV NAME(LOC) BV3N.; GLUCOSE,POINT OF CARE 192 MG/DL (70-110)
[2023-08-24 20:45] VITALS: RESP 18
[2023-08-24 21:16] LABS: GLUCOMETER DEV NAME(LOC) BV3N.; GLUCOSE,POINT OF CARE 129 MG/DL (70-110)
[2023-08-24 21:16] LABS: GLUCOMETER DEV NAME(LOC) BV3N.; GLUCOSE,POINT OF CARE 104 MG/DL (70-110)
[2023-08-25 06:56] LABS: GLUCOMETER DEV NAME(LOC) BV3N.; GLUCOSE,POINT OF CARE 188 MG/DL (70-110)
[2023-08-25 08:30] VITALS: BP 124/65; PULSE 100; RESP 17; TEMP 97.8; O2SAT 97
[2023-08-25 11:50] LABS: GLUCOMETER DEV NAME(LOC) BV3N.; GLUCOSE,POINT OF CARE 127 MG/DL (70-110)
[2023-08-25 16:56] LABS: GLUCOMETER DEV NAME(LOC) BV3N.; GLUCOSE,POINT OF CARE 182 MG/DL (70-110)
[2023-08-25 20:31] LABS: GLUCOMETER DEV NAME(LOC) BV3N.; GLUCOSE,POINT OF CARE 115 MG/DL (70-110)
[2023-08-25 23:10] VITALS: RESP 19; TEMP 98.6
[2023-08-26 06:21] LABS: GLUCOMETER DEV NAME(LOC) BV3N.; GLUCOSE,POINT OF CARE 95 MG/DL (70-110)
[2023-08-26 08:47] VITALS: RESP 19
[2023-08-26 11:55] LABS: GLUCOMETER DEV NAME(LOC) BV3N.; GLUCOSE,POINT OF CARE 105 MG/DL (70-110)
[2023-08-26 19:46] LABS: GLUCOMETER DEV NAME(LOC) BV3N.; GLUCOSE,POINT OF CARE 120 MG/DL (70-110)
[2023-08-26 20:26] LABS: GLUCOMETER DEV NAME(LOC) BV3N.; GLUCOSE,POINT OF CARE 83 MG/DL (70-110)
[2023-08-26] MEDS: GLYCOPYRROLATE 1 MG TABLET PO SCH (20:53)
[2023-08-26 22:40] VITALS: RESP 18
[2023-08-27 06:41] LABS: GLUCOMETER DEV NAME(LOC) BV3N.; GLUCOSE,POINT OF CARE 116 MG/DL (70-110)
[2023-08-27 07:54] LABS: BASOPHILS % (AUTO) 0.6 % (0.0-2.0); EOSINOPHILS % (AUTO) 3.1 % (1.0-6.0); HEMATOCRIT 38.8 % (41-53); HEMOGLOBIN 13.2 g/dL (13.5-17.5); LYMPHOCYTES # (AUTO) 1.8 K/uL (1.0-4.8); LYMPHOCYTES % (AUTO) 25.5 % (22.0-44.0); MEAN CORPUSCULAR HEMOGLOBIN 33.2 pg (26.0-34.0); MEAN CORPUSCULAR VOLUME 98 fL (80-100); MONOCYTES # (AUTO) 0.8 K/uL (0.1-1.0); MONOCYTES % (AUTO) 10.9 % (2.0-9.0); NEUTROPHILS # (AUTO) 4.2 K/uL (1.8-7.7); NEUTROPHILS % (AUTO) 59.9 % (40.0-70.0); PLATELET COUNT (AUTO) 156 K/uL (150-450); RED BLOOD CELL COUNT(AUTO) 3.98 MIL/uL (4.50-5.90); RED CELL DISTRIBUTION WIDTH 13.4 % (11.5-14.5)
[2023-08-27 08:40] VITALS: BP 105/67; PULSE 98; RESP 18; TEMP 98.3; O2SAT 97
[2023-08-27 12:01] LABS: GLUCOMETER DEV NAME(LOC) BV3N.; GLUCOSE,POINT OF CARE 271 MG/DL (70-110)
[2023-08-27 18:30] LABS: GLUCOMETER DEV NAME(LOC) BV3N.; GLUCOSE,POINT OF CARE 101 MG/DL (70-110)
[2023-08-27 20:46] LABS: GLUCOMETER DEV NAME(LOC) BV3N.; GLUCOSE,POINT OF CARE 94 MG/DL (70-110)
[2023-08-28 06:41] LABS: GLUCOMETER DEV NAME(LOC) BV3N.; GLUCOSE,POINT OF CARE 96 MG/DL (70-110)
[2023-08-28 08:14] VITALS: BP 104/72; PULSE 108; RESP 18; TEMP 98.3; O2SAT 95
[2023-08-28 08:54] LABS: LITHIUM 1.31 mmol/L (0.60-1.20)
[2023-08-28 09:05] LABS: VALPROIC ACID < 3 mcg/mL (50-100)
[2023-08-28 11:51] LABS: GLUCOMETER DEV NAME(LOC) BV3N.; GLUCOSE,POINT OF CARE 270 MG/DL (70-110)
[2023-08-28 17:26] LABS: GLUCOMETER DEV NAME(LOC) BV3N.; GLUCOSE,POINT OF CARE 115 MG/DL (70-110)
[2023-08-28] MEDS: TraZODone HCL 100 MG TABLET PO SCH (20:57)
[2023-08-28 21:36] LABS: GLUCOMETER DEV NAME(LOC) BV3N.; GLUCOSE,POINT OF CARE 66 MG/DL (70-110)
[2023-08-28 21:36] LABS: GLUCOMETER DEV NAME(LOC) BV3N.; GLUCOSE,POINT OF CARE 140 MG/DL (70-110)
[2023-08-29 06:36] LABS: GLUCOMETER DEV NAME(LOC) BV3N.; GLUCOSE,POINT OF CARE 131 MG/DL (70-110)
[2023-08-29 09:00] VITALS: BP 109/72; PULSE 96; RESP 16; TEMP 98.2; O2SAT 98
[2023-08-29 11:55] LABS: GLUCOMETER DEV NAME(LOC) BV3N.; GLUCOSE,POINT OF CARE 148 MG/DL (70-110)
[2023-08-29 17:00] LABS: GLUCOMETER DEV NAME(LOC) BV3N.; GLUCOSE,POINT OF CARE 122 MG/DL (70-110)
[2023-08-29 20:32] VITALS: RESP 17; TEMP 97.6; O2SAT 99
[2023-08-29 21:05] LABS: GLUCOMETER DEV NAME(LOC) BV3N.; GLUCOSE,POINT OF CARE 84 MG/DL (70-110)
[2023-08-30 07:00] LABS: GLUCOMETER DEV NAME(LOC) BV3N.; GLUCOSE,POINT OF CARE 122 MG/DL (70-110)
[2023-08-30 08:21] VITALS: BP 105/57; PULSE 100; RESP 18; TEMP 98.3; O2SAT 96
[2023-08-30 11:56] LABS: GLUCOMETER DEV NAME(LOC) BV3N.; GLUCOSE,POINT OF CARE 210 MG/DL (70-110)
[2023-08-30 12:07] LABS: CLOZAPINE & NORCLOZAPINE 641 ng/mL; NORCLOZAPINE 129 ng/mL (Not Estab.)
[2023-08-30 16:55] LABS: GLUCOMETER DEV NAME(LOC) BV3N.; GLUCOSE,POINT OF CARE 304 MG/DL (70-110)
[2023-08-30 20:30] LABS: GLUCOMETER DEV NAME(LOC) BV3N.; GLUCOSE,POINT OF CARE 100 MG/DL (70-110)
[2023-08-30 20:31] VITALS: BP 122/68; PULSE 79; RESP 18; TEMP 98; O2SAT 98
[2023-08-31 06:25] LABS: GLUCOMETER DEV NAME(LOC) BV3N.; GLUCOSE,POINT OF CARE 119 MG/DL (70-110)
[2023-08-31 11:51] LABS: GLUCOMETER DEV NAME(LOC) BV3N.; GLUCOSE,POINT OF CARE 206 MG/DL (70-110)
[2023-08-31 15:32] VITALS: BP 134/79; PULSE 100; RESP 18; TEMP 98.4; O2SAT 95
[2023-08-31 16:56] LABS: GLUCOMETER DEV NAME(LOC) BV3N.; GLUCOSE,POINT OF CARE 269 MG/DL (70-110)
[2023-08-31] MEDS: GLYCOPYRROLATE 1 MG TABLET PO SCH (20:41)
[2023-08-31 20:56] LABS: GLUCOMETER DEV NAME(LOC) BV3N.; GLUCOSE,POINT OF CARE 144 MG/DL (70-110)
[2023-08-31 23:41] VITALS: BP 124/82; PULSE 82; RESP 18; TEMP 98.3; O2SAT 98
[2023-09-01 06:41] LABS: GLUCOMETER DEV NAME(LOC) BV3N.; GLUCOSE,POINT OF CARE 139 MG/DL (70-110)
[2023-09-01 08:08] VITALS: BP 107/80; PULSE 100; RESP 17; TEMP 97.5; O2SAT 99
[2023-09-01 11:25] LABS: GLUCOMETER DEV NAME(LOC) BV3N.; GLUCOSE,POINT OF CARE 209 MG/DL (70-110)
[2023-09-01 18:45] LABS: GLUCOMETER DEV NAME(LOC) BV3N.; GLUCOSE,POINT OF CARE 122 MG/DL (70-110)
[2023-09-01 20:45] LABS: GLUCOMETER DEV NAME(LOC) BV3N.; GLUCOSE,POINT OF CARE 104 MG/DL (70-110)
[2023-09-01 23:32] VITALS: BP 116/78; PULSE 85; RESP 16; TEMP 98; O2SAT 96
[2023-09-02 06:16] LABS: GLUCOMETER DEV NAME(LOC) BV3N.; GLUCOSE,POINT OF CARE 88 MG/DL (70-110)
[2023-09-02 08:55] LABS: BASOPHILS % (AUTO) 0.5 % (0.0-2.0); EOSINOPHILS % (AUTO) 3.8 % (1.0-6.0); HEMATOCRIT 41.1 % (41-53); HEMOGLOBIN 13.8 g/dL (13.5-17.5); LYMPHOCYTES # (AUTO) 2.7 K/uL (1.0-4.8); LYMPHOCYTES % (AUTO) 39.9 % (22.0-44.0); MEAN CORPUSCULAR HGB CONC 33.6 G/dL (31.0-37.0); MEAN CORPUSCULAR VOLUME 98 fL (80-100); MONOCYTES # (AUTO) 0.6 K/uL (0.1-1.0); MONOCYTES % (AUTO) 9.1 % (2.0-9.0); NEUTROPHILS # (AUTO) 3.2 K/uL (1.8-7.7); NEUTROPHILS % (AUTO) 46.7 % (40.0-70.0); PLATELET COUNT (AUTO) 158 K/uL (150-450); RED CELL DISTRIBUTION WIDTH 13.6 % (11.5-14.5); WHITE BLOOD COUNT (AUTO) 6.9 K/uL (4.5-11.0)
[2023-09-02 08:57] VITALS: BP 108/69; PULSE 112; RESP 17; TEMP 98.1; O2SAT 98
[2023-09-02 11:58] LABS: GLUCOMETER DEV NAME(LOC) BV3N.; GLUCOSE,POINT OF CARE 198 MG/DL (70-110)
[2023-09-02 20:00] VITALS: RESP 18
[2023-09-02 20:56] LABS: GLUCOMETER DEV NAME(LOC) BV3N.; GLUCOSE,POINT OF CARE 217 MG/DL (70-110)
[2023-09-02 20:56] LABS: GLUCOMETER DEV NAME(LOC) BV3N.; GLUCOSE,POINT OF CARE 138 MG/DL (70-110)
[2023-09-03 06:30] LABS: GLUCOMETER DEV NAME(LOC) BV3N.; GLUCOSE,POINT OF CARE 83 MG/DL (70-110)
[2023-09-03 08:49] VITALS: BP 105/71; PULSE 97; RESP 17; TEMP 97.1; O2SAT 99
[2023-09-03 11:50] LABS: GLUCOMETER DEV NAME(LOC) BV3N.; GLUCOSE,POINT OF CARE 273 MG/DL (70-110)
[2023-09-03 17:11] LABS: GLUCOMETER DEV NAME(LOC) BV3N.; GLUCOSE,POINT OF CARE 160 MG/DL (70-110)
[2023-09-03 23:31] LABS: GLUCOMETER DEV NAME(LOC) BV3N.; GLUCOSE,POINT OF CARE 154 MG/DL (70-110)
[2023-09-04 06:30] LABS: GLUCOMETER DEV NAME(LOC) BV3N.; GLUCOSE,POINT OF CARE 152 MG/DL (70-110)
[2023-09-04 08:17] VITALS: BP 113/77; PULSE 99; RESP 18; TEMP 98.1; O2SAT 99
[2023-09-04] MEDS: DOCUSATE SODIUM 250 MG CAPSULE PO SCH (16:01)
[2023-09-04 16:46] LABS: GLUCOMETER DEV NAME(LOC) BV3N.; GLUCOSE,POINT OF CARE 255 MG/DL (70-110)
[2023-09-04 16:46] LABS: GLUCOMETER DEV NAME(LOC) BV3N.; GLUCOSE,POINT OF CARE 175 MG/DL (70-110)
[2023-09-04] MEDS: ESZOPICLONE 3 MG TABLET PO PRN (20:03)
[2023-09-04 20:05] VITALS: BP 134/90; PULSE 88; RESP 20; TEMP 97.3; O2SAT 98
[2023-09-04 20:26] LABS: GLUCOMETER DEV NAME(LOC) BV3N.; GLUCOSE,POINT OF CARE 70 MG/DL (70-110)
[2023-09-05 06:31] LABS: GLUCOMETER DEV NAME(LOC) BV3N.; GLUCOSE,POINT OF CARE 156 MG/DL (70-110)
[2023-09-05 11:25] LABS: GLUCOMETER DEV NAME(LOC) BV3N.; GLUCOSE,POINT OF CARE 150 MG/DL (70-110)
[2023-09-05 14:13] VITALS: BP 127/72; PULSE 102; RESP 18; TEMP 97.3; O2SAT 98
[2023-09-05 17:41] LABS: GLUCOMETER DEV NAME(LOC) BV3N.; GLUCOSE,POINT OF CARE 235 MG/DL (70-110)
[2023-09-05 20:20] VITALS: BP 131/88; PULSE 88; RESP 17; TEMP 98.7; O2SAT 96
[2023-09-05 22:10] LABS: GLUCOMETER DEV NAME(LOC) BV3N.; GLUCOSE,POINT OF CARE 82 MG/DL (70-110)
[2023-09-06 07:15] LABS: GLUCOMETER DEV NAME(LOC) BV3N.; GLUCOSE,POINT OF CARE 114 MG/DL (70-110)
[2023-09-06 08:19] VITALS: BP 113/60; PULSE 99; RESP 17; TEMP 98; O2SAT 98
[2023-09-06 11:45] LABS: GLUCOMETER DEV NAME(LOC) BV3N.; GLUCOSE,POINT OF CARE 68 MG/DL (70-110)
[2023-09-06] MEDS: CloZAPine 25 MG TABLET PO SCH (17:01)
[2023-09-06 17:31] LABS: GLUCOMETER DEV NAME(LOC) BV3N.; GLUCOSE,POINT OF CARE 354 MG/DL (70-110)
[2023-09-06] MEDS: CloZAPine 100 MG TABLET PO SCH (20:33)
[2023-09-06] MEDS: TraZODone HCL 100 MG TABLET PO SCH (20:33)
[2023-09-06] MEDS: QUEtiapine FUMARATE 200 MG TABLET PO SCH (20:33)
[2023-09-06 22:08] VITALS: BP 103/78; PULSE 107; RESP 17; TEMP 97.8; O2SAT 98
[2023-09-07 04:31] LABS: GLUCOMETER DEV NAME(LOC) BV3N.; GLUCOSE,POINT OF CARE 82 MG/DL (70-110)
[2023-09-07 06:36] LABS: GLUCOMETER DEV NAME(LOC) BV3N.; GLUCOSE,POINT OF CARE 134 MG/DL (70-110)
[2023-09-07 08:00] VITALS: BP 114/72; PULSE 109; RESP 16; TEMP 97.7
[2023-09-07 11:46] LABS: GLUCOMETER DEV NAME(LOC) BV3N.; GLUCOSE,POINT OF CARE 190 MG/DL (70-110)
[2023-09-07 17:16] LABS: GLUCOMETER DEV NAME(LOC) BV3N.; GLUCOSE,POINT OF CARE 86 MG/DL (70-110)
[2023-09-07 20:44] VITALS: RESP 18
[2023-09-07 22:05] LABS: GLUCOMETER DEV NAME(LOC) BV3N.; GLUCOSE,POINT OF CARE 181 MG/DL (70-110)
[2023-09-08 05:07] LABS: CLOZAPINE & NORCLOZAPINE 539 ng/mL; NORCLOZAPINE 101 ng/mL (Not Estab.)
[2023-09-08 06:16] LABS: GLUCOMETER DEV NAME(LOC) BV3N.; GLUCOSE,POINT OF CARE 115 MG/DL (70-110)
[2023-09-08 09:24] VITALS: BP 112/71; PULSE 100; RESP 17; TEMP 97.8; O2SAT 96
[2023-09-08 11:51] LABS: GLUCOMETER DEV NAME(LOC) BV3N.; GLUCOSE,POINT OF CARE 303 MG/DL (70-110)
[2023-09-08 17:16] LABS: GLUCOMETER DEV NAME(LOC) BV3N.; GLUCOSE,POINT OF CARE 182 MG/DL (70-110)
[2023-09-08 21:20] LABS: GLUCOMETER DEV NAME(LOC) BV3N.; GLUCOSE,POINT OF CARE 86 MG/DL (70-110)
[2023-09-08] MEDS: CloZAPine 100 MG TABLET PO SCH (21:27)
[2023-09-08 21:53] VITALS: RESP 18; O2SAT 97
[2023-09-09 06:21] LABS: GLUCOMETER DEV NAME(LOC) BV3N.; GLUCOSE,POINT OF CARE 68 MG/DL (70-110)
[2023-09-09 08:17] VITALS: BP 125/75; PULSE 100; RESP 18; TEMP 98; O2SAT 96
[2023-09-09 08:25] LABS: BASOPHILS % (AUTO) 0.5 % (0.0-2.0); EOSINOPHILS % (AUTO) 2.7 % (1.0-6.0); HEMATOCRIT 41.1 % (41-53); HEMOGLOBIN 13.8 g/dL (13.5-17.5); LYMPHOCYTES # (AUTO) 2.1 K/uL (1.0-4.8); LYMPHOCYTES % (AUTO) 36.6 % (22.0-44.0); MEAN CORPUSCULAR HEMOGLOBIN 32.9 pg (26.0-34.0); MEAN CORPUSCULAR HGB CONC 33.6 G/dL (31.0-37.0); MEAN CORPUSCULAR VOLUME 98 fL (80-100); MONOCYTES # (AUTO) 0.5 K/uL (0.1-1.0); MONOCYTES % (AUTO) 9.2 % (2.0-9.0); NEUTROPHILS # (AUTO) 2.9 K/uL (1.8-7.7); PLATELET COUNT (AUTO) 155 K/uL (150-450); RED BLOOD CELL COUNT(AUTO) 4.19 MIL/uL (4.50-5.90); RED CELL DISTRIBUTION WIDTH 13.4 % (11.5-14.5); WHITE BLOOD COUNT (AUTO) 5.6 K/uL (4.5-11.0)
[2023-09-09 09:41] LABS: GLUCOMETER DEV NAME(LOC) BV3N.; GLUCOSE,POINT OF CARE 147 MG/DL (70-110)
[2023-09-09 11:53] LABS: GLUCOMETER DEV NAME(LOC) BV3N.; GLUCOSE,POINT OF CARE 151 MG/DL (70-110)
[2023-09-09 17:56] LABS: GLUCOMETER DEV NAME(LOC) BV3N.; GLUCOSE,POINT OF CARE 202 MG/DL (70-110)
[2023-09-09 20:56] LABS: GLUCOMETER DEV NAME(LOC) BV3N.; GLUCOSE,POINT OF CARE 144 MG/DL (70-110)
[2023-09-10 06:31] LABS: GLUCOMETER DEV NAME(LOC) BV3N.; GLUCOSE,POINT OF CARE 100 MG/DL (70-110)
[2023-09-10 08:55] VITALS: BP 112/73; PULSE 99; RESP 17; TEMP 97.1; O2SAT 100
[2023-09-10 11:36] LABS: GLUCOMETER DEV NAME(LOC) BV3N.; GLUCOSE,POINT OF CARE 321 MG/DL (70-110)
[2023-09-10 16:40] LABS: GLUCOMETER DEV NAME(LOC) BV3N.; GLUCOSE,POINT OF CARE 174 MG/DL (70-110)
[2023-09-10 20:12] VITALS: RESP 16
[2023-09-10 20:21] LABS: GLUCOMETER DEV NAME(LOC) BV3N.; GLUCOSE,POINT OF CARE 78 MG/DL (70-110)
[2023-09-11 07:20] LABS: GLUCOMETER DEV NAME(LOC) BV3N.; GLUCOSE,POINT OF CARE 94 MG/DL (70-110)
[2023-09-11 08:00] VITALS: RESP 18
[2023-09-11 12:50] LABS: GLUCOMETER DEV NAME(LOC) BV3N.; GLUCOSE,POINT OF CARE 96 MG/DL (70-110)
[2023-09-11 16:50] LABS: GLUCOMETER DEV NAME(LOC) BV3N.; GLUCOSE,POINT OF CARE 169 MG/DL (70-110)
[2023-09-11 20:21] LABS: GLUCOMETER DEV NAME(LOC) BV3N.; GLUCOSE,POINT OF CARE 147 MG/DL (70-110)
[2023-09-11 20:58] VITALS: BP 126/82; PULSE 100; RESP 18; TEMP 98.2; O2SAT 99
[2023-09-12 06:11] LABS: GLUCOMETER DEV NAME(LOC) BV3N.; GLUCOSE,POINT OF CARE 109 MG/DL (70-110)
[2023-09-12 12:41] LABS: GLUCOMETER DEV NAME(LOC) BV3N.; GLUCOSE,POINT OF CARE 199 MG/DL (70-110)
[2023-09-12 14:52] VITALS: BP 107/72; PULSE 104; RESP 18; TEMP 97.8; O2SAT 99
[2023-09-12 16:56] LABS: GLUCOMETER DEV NAME(LOC) BV3N.; GLUCOSE,POINT OF CARE 230 MG/DL (70-110)
[2023-09-12 20:38] VITALS: BP 128/90; PULSE 96; RESP 18; TEMP 97.9; O2SAT 98
[2023-09-12 22:25] LABS: GLUCOMETER DEV NAME(LOC) BV3N.; GLUCOSE,POINT OF CARE 71 MG/DL (70-110)
[2023-09-13 06:25] LABS: GLUCOMETER DEV NAME(LOC) BV3N.; GLUCOSE,POINT OF CARE 80 MG/DL (70-110)
[2023-09-13 08:36] VITALS: BP 120/72; PULSE 101; RESP 18; TEMP 97.6; O2SAT 100
[2023-09-13 12:01] LABS: GLUCOMETER DEV NAME(LOC) BV3N.; GLUCOSE,POINT OF CARE 122 MG/DL (70-110)
[2023-09-13 16:01] LABS: GLUCOMETER DEV NAME(LOC) BV3N.; GLUCOSE,POINT OF CARE 196 MG/DL (70-110)
[2023-09-13 20:34] VITALS: BP 161/68; PULSE 114; RESP 15; TEMP 98.4; O2SAT 95
[2023-09-14 06:55] LABS: GLUCOMETER DEV NAME(LOC) BV3N.; GLUCOSE,POINT OF CARE 83 MG/DL (70-110)
[2023-09-14 06:55] LABS: GLUCOMETER DEV NAME(LOC) BV3N.; GLUCOSE,POINT OF CARE 120 MG/DL (70-110)
[2023-09-14 08:05] VITALS: BP 119/72; PULSE 100; RESP 18; TEMP 97.6; O2SAT 97
[2023-09-14 16:31] LABS: GLUCOMETER DEV NAME(LOC) BV3N.; GLUCOSE,POINT OF CARE 299 MG/DL (70-110)
[2023-09-14 16:31] LABS: GLUCOMETER DEV NAME(LOC) BV3N.; GLUCOSE,POINT OF CARE 137 MG/DL (70-110)
[2023-09-14 20:19] VITALS: BP 112/60; PULSE 77; TEMP 97.6; O2SAT 98
[2023-09-14 20:40] LABS: GLUCOMETER DEV NAME(LOC) BV3N.; GLUCOSE,POINT OF CARE 149 MG/DL (70-110)
[2023-09-15 06:01] LABS: GLUCOMETER DEV NAME(LOC) BV3N.; GLUCOSE,POINT OF CARE 113 MG/DL (70-110)
[2023-09-15 08:21] VITALS: BP 113/84; PULSE 100; RESP 17; TEMP 97.4; O2SAT 98
[2023-09-15 11:30] LABS: GLUCOMETER DEV NAME(LOC) BV3N.; GLUCOSE,POINT OF CARE 141 MG/DL (70-110)
[2023-09-15 16:36] LABS: GLUCOMETER DEV NAME(LOC) BV3N.; GLUCOSE,POINT OF CARE 263 MG/DL (70-110)
[2023-09-15 20:30] LABS: GLUCOMETER DEV NAME(LOC) BV3N.; GLUCOSE,POINT OF CARE 86 MG/DL (70-110)
[2023-09-16 00:43] VITALS: BP 134/84; PULSE 98; RESP 18; TEMP 98.1; O2SAT 96
[2023-09-16 06:00] LABS: GLUCOMETER DEV NAME(LOC) BV3N.; GLUCOSE,POINT OF CARE 93 MG/DL (70-110)
[2023-09-16 08:06] LABS: BASOPHILS % (AUTO) 0.6 % (0.0-2.0); HEMATOCRIT 42.7 % (41-53); HEMOGLOBIN 14.3 g/dL (13.5-17.5); LYMPHOCYTES # (AUTO) 2.2 K/uL (1.0-4.8); LYMPHOCYTES % (AUTO) 42.1 % (22.0-44.0); MEAN CORPUSCULAR HEMOGLOBIN 32.6 pg (26.0-34.0); MEAN CORPUSCULAR HGB CONC 33.4 G/dL (31.0-37.0); MEAN CORPUSCULAR VOLUME 98 fL (80-100); MONOCYTES # (AUTO) 0.5 K/uL (0.1-1.0); MONOCYTES % (AUTO) 8.6 % (2.0-9.0); NEUTROPHILS # (AUTO) 2.4 K/uL (1.8-7.7); NEUTROPHILS % (AUTO) 45.7 % (40.0-70.0); PLATELET COUNT (AUTO) 164 K/uL (150-450); RED BLOOD CELL COUNT(AUTO) 4.38 MIL/uL (4.50-5.90); RED CELL DISTRIBUTION WIDTH 12.9 % (11.5-14.5); WHITE BLOOD COUNT (AUTO) 5.3 K/uL (4.5-11.0)
[2023-09-16 12:05] LABS: GLUCOMETER DEV NAME(LOC) BV3N.; GLUCOSE,POINT OF CARE 131 MG/DL (70-110)
[2023-09-16 15:20] VITALS: BP 130/77; PULSE 85; RESP 18; TEMP 97.8
[2023-09-16 16:15] LABS: GLUCOMETER DEV NAME(LOC) BV3N.; GLUCOSE,POINT OF CARE 256 MG/DL (70-110)
[2023-09-16 19:06] LABS: CLOZAPINE & NORCLOZAPINE 652 ng/mL; NORCLOZAPINE 167 ng/mL (Not Estab.)
[2023-09-16 19:21] LABS: GLUCOMETER DEV NAME(LOC) POC.BV; POC SARS-COV2 AG, FIA NEGATIVE (NEGATIVE)
[2023-09-16 21:06] VITALS: BP 136/77; PULSE 75; RESP 18; TEMP 97.7
[2023-09-16 22:16] LABS: GLUCOMETER DEV NAME(LOC) BV3N.; GLUCOSE,POINT OF CARE 172 MG/DL (70-110)
[2023-09-17 07:01] LABS: GLUCOMETER DEV NAME(LOC) BV3N.; GLUCOSE,POINT OF CARE 74 MG/DL (70-110)
[2023-09-17 08:23] VITALS: BP 136/66; PULSE 100; RESP 18; TEMP 97.4; O2SAT 99
[2023-09-17 11:46] LABS: GLUCOMETER DEV NAME(LOC) BV3N.; GLUCOSE,POINT OF CARE 126 MG/DL (70-110)
[2023-09-17 18:00] LABS: GLUCOMETER DEV NAME(LOC) BV3N.; GLUCOSE,POINT OF CARE 193 MG/DL (70-110)
[2023-09-17 21:31] LABS: GLUCOMETER DEV NAME(LOC) BV3N.; GLUCOSE,POINT OF CARE 101 MG/DL (70-110)
[2023-09-17 21:36] VITALS: RESP 18
[2023-09-18 06:45] LABS: GLUCOMETER DEV NAME(LOC) BV3N.; GLUCOSE,POINT OF CARE 129 MG/DL (70-110)
[2023-09-18 11:36] LABS: GLUCOMETER DEV NAME(LOC) BV3N.; GLUCOSE,POINT OF CARE 188 MG/DL (70-110)
[2023-09-18 13:10] VITALS: BP 140/80; PULSE 70; RESP 18; TEMP 98.3; O2SAT 100
[2023-09-18 17:11] LABS: GLUCOMETER DEV NAME(LOC) BV3N.; GLUCOSE,POINT OF CARE 125 MG/DL (70-110)
[2023-09-18 22:21] LABS: GLUCOMETER DEV NAME(LOC) BV3N.; GLUCOSE,POINT OF CARE 101 MG/DL (70-110)
[2023-09-18 23:34] VITALS: BP 138/70; PULSE 76; RESP 18; TEMP 98; O2SAT 100
[2023-09-19 06:56] LABS: GLUCOMETER DEV NAME(LOC) BV3N.; GLUCOSE,POINT OF CARE 104 MG/DL (70-110)
[2023-09-19 08:24] VITALS: BP 100/61; PULSE 76; RESP 17; TEMP 97.5; O2SAT 99
[2023-09-19 11:35] LABS: GLUCOMETER DEV NAME(LOC) BV3N.; GLUCOSE,POINT OF CARE 182 MG/DL (70-110)
[2023-09-19 17:10] LABS: GLUCOMETER DEV NAME(LOC) BV3N.; GLUCOSE,POINT OF CARE 191 MG/DL (70-110)
[2023-09-19 20:12] VITALS: BP 127/76; PULSE 92; O2SAT 96
[2023-09-19 21:06] LABS: GLUCOMETER DEV NAME(LOC) BV3N.; GLUCOSE,POINT OF CARE 117 MG/DL (70-110)
[2023-09-19 21:06] LABS: GLUCOMETER DEV NAME(LOC) BV3N.; GLUCOSE,POINT OF CARE 61 MG/DL (70-110)
[2023-09-20 06:36] LABS: GLUCOMETER DEV NAME(LOC) BV3N.; GLUCOSE,POINT OF CARE 90 MG/DL (70-110)
[2023-09-20 08:26] VITALS: BP 120/67; PULSE 97; RESP 18; TEMP 97.5; O2SAT 99
[2023-09-20 12:05] LABS: GLUCOMETER DEV NAME(LOC) BV3N.; GLUCOSE,POINT OF CARE 192 MG/DL (70-110)
[2023-09-20 17:01] LABS: GLUCOMETER DEV NAME(LOC) BV3N.; GLUCOSE,POINT OF CARE 134 MG/DL (70-110)
[2023-09-20 20:48] VITALS: BP 108/74; PULSE 90; TEMP 97.8; O2SAT 99
[2023-09-20 23:05] LABS: GLUCOMETER DEV NAME(LOC) BV3N.; GLUCOSE,POINT OF CARE 91 MG/DL (70-110)
[2023-09-21 08:58] VITALS: RESP 18
[2023-09-21 09:46] LABS: GLUCOMETER DEV NAME(LOC) BV3N.; GLUCOSE,POINT OF CARE 138 MG/DL (70-110)
[2023-09-21 11:45] LABS: GLUCOMETER DEV NAME(LOC) BV3N.; GLUCOSE,POINT OF CARE 217 MG/DL (70-110)
[2023-09-21 16:46] LABS: GLUCOMETER DEV NAME(LOC) BV3N.; GLUCOSE,POINT OF CARE 236 MG/DL (70-110)
[2023-09-21 20:40] LABS: GLUCOMETER DEV NAME(LOC) BV3N.; GLUCOSE,POINT OF CARE 90 MG/DL (70-110)
[2023-09-21 20:45] VITALS: RESP 16
[2023-09-22 07:31] LABS: GLUCOMETER DEV NAME(LOC) BV3N.; GLUCOSE,POINT OF CARE 85 MG/DL (70-110)
[2023-09-22 08:00] VITALS: BP 110/75; PULSE 106; RESP 17; TEMP 97.9
[2023-09-22 11:51] LABS: GLUCOMETER DEV NAME(LOC) BV3N.; GLUCOSE,POINT OF CARE 207 MG/DL (70-110)
== END 2023-09-22 11:50 | disposition short-term general hospital (02) | DRG 750 ==
LOC: EMS 10:40 → B2S 03-17 15:58 → B3A 03-18 21:05 → B2S 08-06 15:30 → B3A 08-13 18:20
PROVIDERS: ADMIT Psychiatry & Neurology Psychiatry; ATTEND Psychiatry & Neurology Psychiatry
PROC: GZHZZZZ Group Psychotherapy (ICD-10-PCS; principal; 2023-09-05)
PROC: GZ58ZZZ Individual Psychotherapy, Cognitive-Behavioral (ICD-10-PCS; 2023-09-05)
DX: F25.0 Schizoaffective disorder, bipolar type (principal); E11.9 Type 2 diabetes mellitus without complications; D64.9 Anemia, unspecified; E78.5 Hyperlipidemia, unspecified; F17.200 Nicotine dependence, unspecified, uncomplicated; F41.9 Anxiety disorder, unspecified; F94.0 Selective mutism; J44.9 Chronic obstructive pulmonary disease, unspecified; K11.7 Disturbances of salivary secretion; Z20.822 Contact with and (suspected) exposure to COVID-19; R32 Unspecified urinary incontinence; Z55.9 Problems related to education and literacy, unspecified; Z59.9 Problem related to housing and economic circumstances, unspecified; Z63.9 Problem related to primary support group, unspecified; Z65.3 Problems related to other legal circumstances; Z91.199 Patient's noncompliance with other medical treatment and regimen due to unspecified reason; Z79.899 Other long term (current) drug therapy; Z91.148 Patient's other noncompliance with medication regimen for other reason
CPT/HCPCS: 80053; 80061; 80159; 80164; 80178; 80307; 81003; 82962; 83036; 84439; 84443; 85025; 86592; 87081; 87804; 90686; 90732; 93005; 99285; G0480; J1200; J1610; J1630; J1815; J2060; J3230; Q9967